=== PATIENT | male | born 1990 | race African-American/Black ===

== ENCOUNTER 2021-03-19 20:31 | Emergency (ER) | payer OTHER, SELFPAY ==
[2021-03-19 20:38] VITALS: BP 154/109; PULSE 100; RESP 18; TEMP 36.4; O2SAT 97; BMI 35.9
--- NOTE | 2021-03-19 20:58 | ED_ITS ---
HPI - General Adult General Chief complaint: Recheck/Abnormal Lab/Rx Stated complaint: [employer] sent Pt over Time Seen by Provider: 03/19/21 20:46 Source: patient Mode of arrival: ambulatory Limitations: no limitations History of Present Illness HPI narrative: . No significant past medical history family history of diabetes in grandparents noticed for last few days increased thirst and urination body aches went to Urgent Care checked the blood sugar was 435. Hence came to the ER no abdominal pain no nausea no vomiting not on any steroids Related Data Previous Rx's Medication Instructions Recorded blood-glucose meter #1 ea 03/19/21 metformin 850 mg tablet 850 mg PO BID #60 tab 03/19/21 Allergies Allergy/AdvReac Type Severity Reaction Status Date / Time No Known Allergies Allergy Verified 03/19/21 20:35 Review of Systems Verdana 4l Review of Systems: Yes all other systems are reviewed and Verdana 4d are negative [facility] Past Medical History Medical History Diabetes type 2, uncontrolled Social History Social History Advance Directives: No Advance Directives Information Provided: No Physical Exam Verdana 4l Vital Signs: Verdana 4d Verdana 4d Vital Signs: Verdana 4d Verdana 4Bd Last Vital Signs Verdana 4d Cell Support Operator New 4d Cell Support Operator New 4d Temp 97.5 F 03/19/21 20:38 Cell Support Operator New 4d Pulse 100 03/19/21 20:38 Cell Support Operator New 4d Resp 18 03/19/21 20:38 BP 154/109 H 03/19/21 20:38 Pulse Ox 97 03/19/21 20:38 BMI result Body Mass Index 35.9 Appearance: Alert. Oriented X3. No acute distress. Well-built Eyes: No pallor or icterus ENT: Pharynx normal. Oral Mucosa moist Neck: Normal inspection. Neck supple. CVS: Normal heart rate and rhythm. Pulses normal. Respiratory: No respiratory distress. Equal air entry bilateral, no wheezing/rales/rhonchi Abdomen: Soft and nontender. Bowel sounds are present, no mass palpable, no CVA tenderness Skin: Skin warm and dry. Normal skin color. Normal skin turgor. Neuro: Oriented X 3. Medical Decision Making MDM Narrative Medical decision making narrative: Patient with new diagnosis of diabetes with blood sugar of 410 on arrival patient received IV fluids and insulin in the ER last blood sugar 311 which are patient home on metformin patient was educated about diabetes in the ER advised to follow with specialist Lab Data Lab results reviewed: Yes I reviewed the patient's lab results. Result diagrams: 03/19/21 20:57 03/19/21 20:57 Labs: Lab Results 03/19/21 03/19/21 03/19/21 Range/Units 20:57 20:57 21:24 WBC 8.9 (4.8-10.8) X10*3/uL RBC 5.73 (4.60-5.80) X10*6/uL Hgb 15.2 (14.0-18.0) g/dl Hct 45.7 (42.0-52.0) % MCV 79.8 L (80.0-98.0) fL MCH 26.5 L (27.0-33.0) pg MCHC 33.3 (31.0-36.0) g/dl RDW 13.4 (11.0-16.0) % Plt Count 345 (160-400) X10*3/uL MPV 9.7 (9.4-12.4) fL Immature Gran % (Auto) 0.2 (0.0-0.4) % Neut % (Auto) 40.4 L (45-73) % Lymph % (Auto) 45.3 H (20-40) % Hemphill % (Auto) 7.7 (2-11) % Eos % (Auto) 5.4 H (0-4) % Baso % (Auto) 1.0 (0-2) % Lymph # (Auto) 4.0 (1.2-4.9) X10*3/uL Hemphill # (Auto) 0.7 (0.1-1.2) X10*3/uL Eos # (Auto) 0.5 H (0.0-0.4) X10*3/uL Baso # (Auto) 0.1 (0.0-0.2) X10*3/uL Abs Immat Gran (auto) 0.02 (0.00-0.03) X10*3/uL Absolute Neuts (auto) 3.6 (2.0-8.3) x10*3/uL Absolute Nucleated RBC 0.000 (0.0-0.012) X10*3/uL Nucleated RBC % (auto) 0.0 (0.0-0.2) /100WBC Sodium 137 (135-145) mmol/L Potassium 4.2 (3.3-5.1) mmol/L Chloride 99 (96-108) mmol/L Carbon Dioxide 28 (22-29) mmol/L Anion Gap 14 (12-20) BUN 12 (9-16) mg/dL Creatinine 1.55 H (0.5-1.4) mg/dL Estim Creat Clear Calc 96.8 Estimated GFR 52 POC Glucose 386 H* (60-115) mg/dL Random Glucose 410 H* (60-115) mg/dL Calcium 9.8 (8.4-10.2) mg/dL Total Bilirubin 0.7 (0.0-1.0) mg/dL AST 15 (5-37) U/L ALT 17 (0-40) U/L Alkaline Phosphatase 109 (39-117) U/L Total Protein 8.1 H (6.5-8.0) g/dL Albumin 4.5 (3.5-5.0) g/dL Acetone, Qual Negative (Negative) 03/19/21 03/19/21 Range/Units 22:03 22:58 WBC (4.8-10.8) X10*3/uL RBC (4.60-5.80) X10*6/uL Hgb (14.0-18.0) g/dl Hct (42.0-52.0) % MCV (80.0-98.0) fL MCH (27.0-33.0) pg MCHC (31.0-36.0) g/dl RDW (11.0-16.0) % Plt Count (160-400) X10*3/uL MPV (9.4-12.4) fL Immature Gran % (Auto) (0.0-0.4) % Neut % (Auto) (45-73) % Lymph % (Auto) (20-40) % Hemphill % (Auto) (2-11) % Eos % (Auto) (0-4) % Baso % (Auto) (0-2) % Lymph # (Auto) (1.2-4.9) X10*3/uL Hemphill # (Auto) (0.1-1.2) X10*3/uL Eos # (Auto) (0.0-0.4) X10*3/uL Baso # (Auto) (0.0-0.2) X10*3/uL Abs Immat Gran (auto) (0.00-0.03) X10*3/uL Absolute Neuts (auto) (2.0-8.3) x10*3/uL Absolute Nucleated RBC (0.0-0.012) X10*3/uL Nucleated RBC % (auto) (0.0-0.2) /100WBC Sodium (135-145) mmol/L Potassium (3.3-5.1) mmol/L Chloride (96-108) mmol/L Carbon Dioxide (22-29) mmol/L Anion Gap (12-20) BUN (9-16) mg/dL Creatinine (0.5-1.4) mg/dL Estim Creat Clear Calc Estimated GFR POC Glucose 333 H 311 H (60-115) mg/dL Random Glucose (60-115) mg/dL Calcium (8.4-10.2) mg/dL Total Bilirubin (0.0-1.0) mg/dL AST (5-37) U/L ALT (0-40) U/L Alkaline Phosphatase (39-117) U/L Total Protein (6.5-8.0) g/dL Albumin (3.5-5.0) g/dL Acetone, Qual (Negative) Discharge Plan Discharge Clinical Impression: New onset type 2 diabetes mellitus Patient Disposition: Home, Self-Care Instructions: Type 2 Diabetes in Adults: New Diagnosis (ED) Additional Instructions: Drink plenty of fluids Check your sugar twice daily Metformin as advised Follow-up with your PCP/package maker Report to the ER blood sugar higher than 400 Prescriptions: New metformin 850 mg tablet 850 mg PO BID Qty: 60 0RF (DME) blood-glucose meter Kit See Rx Instructions .Route Qty: 1 0RF Rx Instructions: As directed
[2021-03-19 21:03] LABS: MANUAL DIFF FLAG NO
[2021-03-19 21:04] LABS: Basophils Absolute Auto 0.1 X10*3/uL (0.0-0.2); Eosinophils Absolute Auto 0.5 X10*3/uL (0.0-0.4); Eosinophils Percent Auto 5.4 % (0-4); Hematocrit 45.7 % (42.0-52.0); Hemoglobin 15.2 g/dl (14.0-18.0); Imm Gran Abs Auto 0.02 X10*3/uL (0.00-0.03); Imm Gran Pct Auto 0.2 % (0.0-0.4); Lymphocytes Percent Auto 45.3 % (20-40); Mean Corpuscular HGB Conc 33.3 g/dl (31.0-36.0); Mean Corpuscular Hemoglobin 26.5 pg (27.0-33.0); Mean Corpuscular Volume 79.8 fL (80.0-98.0); Mean Platelet Volume 9.7 fL (9.4-12.4); Monocytes Absolute Auto 0.7 X10*3/uL (0.1-1.2); Monocytes Percent Auto 7.7 % (2-11); Neutrophils Absolute Auto 3.6 x10*3/uL (2.0-8.3); Neutrophils Percent Auto 40.4 % (45-73); Platelet Count 345 X10*3/uL (160-400); Red Blood Count 5.73 X10*6/uL (4.60-5.80); Red Cell Distribution Width 13.4 % (11.0-16.0); White Blood Count 8.9 X10*3/uL (4.8-10.8)
[2021-03-19 21:10] LABS: Acetone, serum QL Negative (Negative)
[2021-03-19] MEDS: 0.9 % Sodium Chloride 1,000 ML 999 ML IV (21:26)
[2021-03-19] MEDS: Insulin Lispro 100 UNIT/ML 3 ML VIAL 14 UNIT SUBCUT (21:26)
[2021-03-19 21:27] LABS: Glucose, Whole Blood 386 mg/dL (60-115)
[2021-03-19 21:35] LABS: Alanine Aminotransferase 17 U/L (0-40); Albumin Level 4.5 g/dL (3.5-5.0); Alkaline Phosphatase 109 U/L (39-117); Anion Gap 14 (12-20); Aspartate Amino Transferase 15 U/L (5-37); Bilirubin Total 0.7 mg/dL (0.0-1.0); Blood Urea Nitrogen 12 mg/dL (9-16); Calcium 9.8 mg/dL (8.4-10.2); Carbon Dioxide 28 mmol/L (22-29); Chloride 99 mmol/L (96-108); Creatinine Clr Calc Pharmacy 96.8; Estimated Glomerular Filt Rate 52; Glucose Random 410 mg/dL (60-115); Potassium 4.2 mmol/L (3.3-5.1); Sodium 137 mmol/L (135-145); Total Protein 8.1 g/dL (6.5-8.0)
--- NOTE | 2021-03-19 22:06 | PC.NURSE ---
POC 333
[2021-03-19 22:08] LABS: Glucose, Whole Blood 333 mg/dL (60-115)
[2021-03-19 23:03] LABS: Glucose, Whole Blood 311 mg/dL (60-115)
[2021-03-19] MEDS: metFORMIN HCl 1,000 MG TABLET 1000 MG PO (23:15)
== END 2021-03-19 23:28 | disposition home or self-care (01) ==
PROVIDERS: Emergency Provider Internal Medicine
DX: E11.65 Type 2 diabetes mellitus with hyperglycemia (principal)
CPT/HCPCS: 36415; 80053; 82009; 82947; 85025; 96360; 99283; 99284

== ENCOUNTER 2021-04-05 12:33 | Emergency (ER) | payer OTHER, SELFPAY ==
[2021-04-05 12:43] VITALS: BP 152/101; PULSE 93; RESP 18; TEMP 36.9; O2SAT 98; BMI 35.9
[2021-04-05 14:33] LABS: Glucose, Whole Blood 297 mg/dL (60-115)
--- NOTE | 2021-04-05 14:58 | ED_ITS ---
HPI - Animal Bite General Chief Complaint: Animal Bite Stated Complaint: bit by dog Time Seen by Provider: 04/05/21 14:12 Source: patient Mode of arrival: ambulatory History of Present Illness HPI narrative: 30-year-old male with past medical history of newly diagnosed diabetes on Metformin, presenting to the ED complaining of dog bite to bilateral feet [employer]. 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 Dog up-to-date on vaccinations. Patient's tetanus up-to-date. Patient also reports noncompliance with his Metformin x3 days due to forgetfulness, requesting POC. Also reports a acute on chronic rash to posterior scalp. denies fever, chills complaint: animal bite Onset (ago): hour(s) Animal: dog Description of animal: immunizations UTD Related Data Previous Rx's Medication Instructions Recorded blood-glucose meter #1 ea 03/19/21 metformin 850 mg tablet 850 mg PO BID #60 tab 03/19/21 hydrochlorothiazide 25 mg tablet 25 mg PO DAILY #14 tab 04/05/21 triamcinolone acetonide 0.05 % 1 appl TOPICAL BID PRN #110 g 04/05/21 topical ointment Allergies Allergy/AdvReac Type Severity Reaction Status Date / Time No Known Allergies Allergy Verified 04/05/21 12:43 Review of Systems Review of Systems: Constitutional: No Fever, No Chills ENT/Mouth: No Ear Pain, No Nasal Congestion, No sore throat, No Rhinorrhea, No Swallowing Difficulty Cardiovascular: No Chest Pain, No SOB Respiratory: No Cough, No Sputum Gastrointestinal: No Nausea, No Vomiting, No Diarrhea, No Constipation, No Abdominal pain Genitourinary: No Dysuria, No Urinary Frequency, No Urgency, No Flank Pain Musculoskeletal: No joint pain, No Myalgias, No Joint Swelling Skin: No Skin Lesions, + rash Neuro: No Weakness, No Numbness, No Paresthesias Yes all other systems are reviewed and are negative [facility] Past Medical History Attestation statement: The following information was validated with the patient. Medical History Diabetes type 2, uncontrolled Social History Social History Advance Directives: No Advance Directives Information Provided: No Physical Exam ED Vital Signs: Vital Signs - 24 hr 04/05/21 12:43 04/05/21 15:05 04/05/21 16:03 Temperature 98.5 F Pulse Rate 93 78 Respiratory Rate 18 19 Blood Pressure 152/101 H 158/107 H 157/111 H Pulse Oximetry 98 96 04/05/21 16:33 04/05/21 16:40 Temperature Pulse Rate Respiratory Rate Blood Pressure 160/104 H 161/96 H Pulse Oximetry BMI result Body Mass Index 35.9 Const General: cooperative and healthy appearing Orientation/consciousness: patient oriented x3 Limitations: no limitations HENMT Head: Yes normal to inspection and Yes normocephalic Ears: hearing grossly normal bilaterally General nose exam: Normal external nose present Face and sinus: Yes normal facial exam Eyes General: appearance normal, both eyes and all related structures EOM: EOMs intact bilaterally Neck Neck: Yes normal visual inspection Resp Effort & Inspection: normal respiratory effort and no respiratory distress Auscultation: clear to auscultation bilaterally Cardio Rate: regular rate Heart sounds: S1 normal heart sound present and S2 normal heart sound present Peripheral pulses: dorsalis pedis present GI Inspection: Yes normal to inspection Skin Other: + thickened dermatitis/ eczema to posterior scalp. No erythema, no open wounds, no drainage Wounds: no wounds Neuro General: patient oriented x3 Gait exam (Neuro): Normal gait present Extrem Other: bilateral lower extremities/feet without deformity/erythema/ecchymosis, no open wounds, no appreciable bite [place] General: Yes normal to inspection Course Course Course Narrative: -- PATIENT'S BLOOD PRESSURE MILDLY IMPROVED TO 161/96 AFTER 25 MG OF P.O. HYDROCHLOROTHIAZIDE. HAD LENGTHY DISCUSSION WITH PATIENT ABOUT IMPORTANCE OF C OMPLIANCE WITH METFORMIN, CLOSE MONITORING OF GLUCOSE, AND INITIATION OF HYDROCHLOROTHIAZIDE. DISCUSSED IMPORTANCE OF PCP FOLLOW-UP. HE VERBALIZED UNDERSTANDING FEEL SAFE FOR DISCHARGE HOME - PATIENT ALSO YOU TOOK HOME DOSE OF METFORMIN IN THE ED MDM - Animal Bite MDM Narrative Medical decision making narrative: 30-year-old male with past medical history of newly diagnosed diabetes on Metformin, presenting to the ED complaining of dog bite to bilateral feet [employer]. On exam hypertensive, notably hypertensive previous visit as well on 03/19, not currently on antihypertensives, denies headache/CP/SOB. Low concern for hypertensive urgency / emergency. Will give dose of p.o. Hydrochlorothiazide and re-evaluate. No appreciable dog bite/open wounds to either foot. No need for tetanus, rabies or Augmentin at this time. Noncompliance with Metformin > POC 297. Discussed importance of compliance with meds and close monitoring of glucose at home. Has follow-up with PCP next week. Discussed endocrine follow-up, he verbalized understanding Differential Diagnosis Differential diagnosis: Likely bite by animal and dog bite Medical Records Attestation: I reviewed the patient's medical records. Lab Data Attestation: I reviewed the patient's lab results. Labs: Lab Results 04/05/21 Range/Units 14:28 POC Glucose 297 H (60-115) mg/dL Discharge Plan Discharge Clinical Impression: Dog bite, HTN (hypertension), Dermatitis Patient Disposition: Home, Self-Care Instructions: Animal Bite (ED), How to Take a Blood Pressure (ED), Hypertension (ED) Additional Instructions: your blood pressures are elevated today in the emergency department. It was elevated during her last visit as well, hydrochlorothiazide is an antihypertensive medication, take as prescribed. YOU NEED TO FOLLOW-UP WITH HER PRIMARY CARE DOCTOR. YOU NEED TO MONITOR YOUR BLOOD PRESSURES CLOSELY IT IS VERY IMPORTANT YOU TAKE YOUR METFORMIN PRESCRIBED YOU ALSO NEED TO CHECK YOUR GLUCOSE IF YOUR SUGAR IS RUNNING LOW LESS THAN 60 OR HIGH GREATER THAN 350 PLEASE RETURN TO THE EMERGENCY DEPARTMENT. IF HE DEVELOPED HEADACHE, CHEST PAIN, SHORTNESS OF BREATH, LIGHTHEADEDNESS / DIZZINESS PLEASE RETURN TO THE EMERGENCY DEPARTMENT Prescriptions: New hydrochlorothiazide 25 mg tablet 25 mg PO DAILY Qty: 14 0RF triamcinolone acetonide 0.05 % ointment 1 appl topical BID PRN (Reason: rash) Qty: 110 0RF No Action metformin 850 mg tablet 850 mg PO BID Qty: 60 0RF (DME) blood-glucose meter Kit See Rx Instructions .Route Qty: 1 0RF Rx Instructions: As directed Referrals: Arlene Montiel PA [Physician Rn Cvor] - 2 days Onofre Agarawl MD [Physician] - 2 days Lizbeth Bang MD [Physician] - 2 days Physician,Ana J [Primary Care Provider] - 2 days
[2021-04-05 15:05] VITALS: BP 158/107; PULSE 78; RESP 19; O2SAT 96
[2021-04-05] MEDS: hydroCHLOROthiazide 25 MG TABLET PO (15:24)
[2021-04-05 16:03] VITALS: BP 157/111
[2021-04-05 16:33] VITALS: BP 160/104
[2021-04-05 16:40] VITALS: BP 161/96
== END 2021-04-05 17:02 | disposition home or self-care (01) ==
PROVIDERS: Emergency Provider Emergency Medicine
DX: S90.872A Other superficial bite of left foot, initial encounter (principal); S90.871A Other superficial bite of right foot, initial encounter; W54.0XXA Bitten by dog, initial encounter; I10 Essential (primary) hypertension; L30.9 Dermatitis, unspecified; E11.9 Type 2 diabetes mellitus without complications; Y93.89 Activity, other specified; Y92.9 Unspecified place or not applicable; Y99.9 Unspecified external cause status
CPT/HCPCS: 82947; 99283; 99284

== ENCOUNTER 2022-01-26 08:38 | Emergency (ER) | payer OTHER, SELFPAY ==
[2022-01-26 08:51] VITALS: BP 160/109; PULSE 95; RESP 16; TEMP 36.6; O2SAT 97; BMI 35.9
[2022-01-26 09:33] LABS: Glucose, Whole Blood 337 mg/dL (60-115)
[2022-01-26 09:36] LABS: Appearance Urine Clear; Color Urine Yellow; Glucose Urine UA >=1000 mg/dL (Negative); Leukocyte Esterase Urine Negative (Negative); Nitrite Urine Negative (Negative); PH 5.5 (5.0-9.0); UMIC TRIGGER UACC YES; Urine Blood Negative (Negative); Urine Ketones Negative (Negative); Urine Protein Negative (Neg-Trace)
[2022-01-26] MEDS: Lidocaine 4 % Patch ADH..PATCH 1 PATCH TRANSDERMA (09:38)
[2022-01-26] MEDS: Ketorolac Tromethamine 30 MG/ML VIAL IM (09:39)
[2022-01-26 09:41] LABS: Bacteria Urine None Seen (None Seen); Hyaline Casts Urine 0-2 /LPF (0-2); RBC Urine 0-2 /HPF (0-2); Squamous Epithelial Cell Urine 0-2 /HPF (0-2); UACC Culture Trigger YES
--- NOTE | 2022-01-26 09:53 | ED.BACK ---
HPI - Back Pain/Injury General Chief Complaint: Back Pain/Injury Stated Complaint: lower back pain, pain going into legs Time Seen by Provider: 01/26/22 09:03 Source: patient Mode of arrival: ambulatory History of Present Illness HPI Narrative: 31-year-old male with a past medical history of hypertension, presenting to the ED complaining of left-sided low back pain radiating down LLE x 1 week. Also reports urinary frequency, increased thirst, and intermittent blurry vision, denies at present. Denies any injury, trauma, fall, urinary incontinence/retention, fever, chills, hematuria/ dysuria, abdominal pain, headaches, CP/SOB. Has taking Tylenol and ibuprofen without relief MD elicited complaint: back pain Related Data Previous Rx's Medication Instructions Recorded blood-glucose meter #1 ea 03/19/21 metformin 850 mg tablet 850 mg PO BID #60 tabs 03/19/21 hydrochlorothiazide 25 mg tablet 25 mg PO DAILY #14 tabs 04/05/21 triamcinolone acetonide 0.05 % 1 appl topical BID PRN rash #110 04/05/21 topical ointment grams Allergies Allergy/AdvReac Type Severity Reaction Status Date / Time No Known Allergies Allergy Verified 04/05/21 12:43 Review of Systems Review of Systems: Constitutional: No Fever, No Chills, No Fatigue, No Malaise ENT/Mouth: No Ear Pain, No Nasal Congestion, No sore throat, No Rhinorrhea, No Swallowing Difficulty Eyes: No Eye Pain, No Swelling, No Redness, +intermittent Vision Changes Cardiovascular: No Chest Pain, No SOB, No Edema, No Palpitations Respiratory: No Cough, No Sputum, No Dyspnea Gastrointestinal: No Nausea, No Vomiting, No Diarrhea, No Constipation, No Abdominal pain Genitourinary: No Dysuria, + Urinary Frequency, No Hematuria, No Urinary Incontinence/retention, No Urgency, No Flank Pain, No Urinary Flow Changes, No Hesitancy Musculoskeletal: + joint pain, No Myalgias, No Joint Swelling Skin: No Skin Lesions, No rash Neuro: No Weakness, No Numbness, + Paresthesias, No Loss of Consciousness, No Dizziness, No Headache Endocrine: + Polyuria, + Polydipsia, No Temperature Intolerance Yes all other systems are reviewed and are negative Constitutional: Constitutional: Reports as per [facility] Past Medical History Attestation statement: The following information was validated with the patient. Medical History Diabetes type 2, uncontrolled Social History Social History Advance Directives: No Advance Directives Information Provided: No Physical Exam Vital Signs: Vital Signs: Last Vital Signs Temp 98 F 01/26/22 08:51 Pulse 83 01/26/22 10:33 Resp 14 01/26/22 10:33 BP 153/98 H 01/26/22 10:33 Pulse Ox 97 01/26/22 10:33 O2 Del Method 01/26/22 10:33 BMI result Body Mass Index 35.9 Const: General: cooperative, healthy appearing and no acute distress Orientation/consciousness: patient oriented x3 Limitations: no limitations HEENT: Head: Yes normal to inspection and Yes atraumatic Ears: hearing grossly normal bilaterally General nose exam: Normal external nose present Face and sinus: Yes normal facial exam Eyes: General: appearance normal, both eyes and all related structures EOM: EOMs intact bilaterally Neck: Neck: Yes normal visual inspection and Yes no meningeal signs Resp: Effort & Inspection: normal respiratory effort and no respiratory distress Auscultation: clear to auscultation bilaterally Cardio: Rate: regular rate Heart sounds: S1 normal heart sound present and S2 normal heart sound present GI: Inspection: Yes normal to inspection Palpation (GI): Soft to palpation, nontender, no guarding and not rigid : General: Yes no CVA tenderness Back/Spine/Pelvis: Other: No midline thoracic/lumbar spinous tenderness/step-off or deformity. + left-sided buttock tenderness to palpation Back: no CVA tenderness Skin: Rashes: no rashes Wounds: no wounds Neuro: Other: Strength intact throughout. No saddle anesthesia. Sensation intact to light touch. Neurovascular intact distally General: patient oriented x3, gait normal, tone normal, moves all extremities, no meningeal signs and no focal motor deficits Gait exam (Neuro): Normal gait present Motor exam (neuro): 5/5 motor strength present throughout Extrem: General: Yes normal to inspection Course Course Course Narrative: - POC 337 on arrival > will obtain labs and give IVF - no leukocytosis. Hemoglobin A1c 9.3 >> discussed with patient importance of metformin compliance with diagnosis of diabetes with Endocrinology follow-up - UA with wbc's and glucose, negative nitrate/bacteriuria/leuk esterase > will wait on culture to initiate antibiotics -1140-- repeat POC 259 after IVF. Will continue patient on previously prescribed metformin 850mg b.i.d. Results discussed with patient including worrisome signs and symptoms and strict return precautions, and when to return to the emergency department. They verbalized understanding and feel safe for discharge at this time. Medications Administered Discontinued Medications Generic Name Dose Route Start Last Admin Trade Name Freeman PRN Reason Stop Dose Admin Hydrochlorothiazide 25 mg 01/26/22 09:40 01/26/22 09:57 Hydrochlorothiazide 25 Mg Tablet PO 01/26/22 09:41 25 mg ONCE ONE Administration Protocol Sodium Chloride 1,000 mls @ 999 mls/hr 01/26/22 09:45 01/26/22 09:58 Ns IV 01/26/22 10:45 999 mls/hr .Q1H1M CLIFFORD Administration Ketorolac Tromethamine 30 mg 01/26/22 09:27 01/26/22 09:39 Ketorolac Tromethamine 30 Mg/Ml Vial IM 01/26/22 09:28 30 mg ONCE ONE Administration Lidocaine 1 patch 01/26/22 09:27 01/26/22 09:38 Lidocaine 4 % Patch Adh..Patch TRANSDERMA 01/26/22 09:28 1 patch ONCE ONE Administration Protocol Medical Decision Making Medical Decision Making MDM Narrative: 31-year-old male with a past medical history of hypertension, presenting to the ED complaining of left-sided low back pain radiating down LLE x 1 week. Also reports urinary frequency, increased thirst, and intermittent blurry vision, denies at present. On exam HTNsive (denies taking BP meds today), NAD, nontoxic, no midline spinous tenderness or red flag symptoms. Concern for MSK pain /strain/sciatica. Low suspicion for cauda equina, cord compression, or epidural abscess. Upon chart review patient was diagnosed with new onset diabetes in March, states use to take metformin, has been noncompliant. Concern for DKA/hyperglycemia due to noncompliance. Rule out metabolic abnormalities plan: Labs, UA, IVF, pain control Differential Diagnoses: Differential diagnosis ( as above) Lab Attestation: I reviewed the patient's lab results. Non-ED record review: Review of External (Non-ED) Record ( old ED record) External record reviewed:: Prior outpatient labs Chronic conditions affecting care (e.g., diabetes, HTN): Chronic conditions affecting care (e.g., diabetes, HTN) Patient?s care impacted by: Diabetes Discharge Plan Discharge Clinical Impression: Lumbar radiculopathy, Diabetes Patient Disposition: Home, Self-Care Prescriptions: No Action metformin 850 mg tablet 850 mg PO BID Qty: 60 0RF (DME) blood-glucose meter Kit See Rx Instructions .Route Qty: 1 0RF Rx Instructions: As directed hydrochlorothiazide 25 mg tablet 25 mg PO DAILY Qty: 14 0RF triamcinolone acetonide 0.05 % ointment 1 appl topical BID PRN (Reason: rash) Qty: 110 0RF
[2022-01-26] MEDS: hydroCHLOROthiazide 25 MG TABLET PO (09:57)
[2022-01-26] MEDS: 0.9 % Sodium Chloride 1,000 ML 999 ML IV (09:58)
[2022-01-26 10:03] LABS: MANUAL DIFF FLAG NO
[2022-01-26 10:04] LABS: Basophils Absolute Auto 0.1 X10*3/uL (0.0-0.2); Basophils Percent Auto 1.1 % (0-2); Eosinophils Absolute Auto 0.3 X10*3/uL (0.0-0.4); Eosinophils Percent Auto 3.9 % (0-4); Hematocrit 44.8 % (42.0-52.0); Hemoglobin 15.5 g/dl (14.0-18.0); Imm Gran Abs Auto 0.01 X10*3/uL (0.00-0.03); Imm Gran Pct Auto 0.1 % (0.0-0.4); Lymphocytes Absolute Auto 2.7 X10*3/uL (1.2-4.9); Lymphocytes Percent Auto 36.9 % (20-40); Mean Corpuscular HGB Conc 34.6 g/dl (31.0-36.0); Mean Corpuscular Hemoglobin 27.2 pg (27.0-33.0); Mean Corpuscular Volume 78.6 fL (80.0-98.0); Monocytes Absolute Auto 0.6 X10*3/uL (0.1-1.2); Monocytes Percent Auto 8.8 % (2-11); Neutrophils Absolute Auto 3.6 x10*3/uL (2.0-8.3); Neutrophils Percent Auto 49.2 % (45-73); Platelet Count 354 X10*3/uL (160-400); Red Cell Distribution Width 12.5 % (11.0-16.0); White Blood Count 7.3 X10*3/uL (4.8-10.8)
[2022-01-26 10:22] LABS: Alanine Aminotransferase 19 U/L (0-40); Albumin Level 4.4 g/dL (3.5-5.0); Alkaline Phosphatase 111 U/L (39-117); Anion Gap 14 (12-20); Aspartate Amino Transferase 13 U/L (5-37); Bilirubin Direct 0.2 mg/dL (0.0-0.5); Blood Urea Nitrogen 14 mg/dL (9-16); Carbon Dioxide 30 mmol/L (22-29); Chloride 100 mmol/L (96-108); Creatinine Clr Calc Pharmacy 113.5; Estimated Glomerular Filt Rate > 60; Glucose Random 310 mg/dL (60-115); Lipase 27 U/L (8-78); Potassium 4.5 mmol/L (3.3-5.1); Sodium 139 mmol/L (135-145); Total Protein 7.8 g/dL (6.5-8.0)
[2022-01-26 10:33] VITALS: BP 153/98; PULSE 83; RESP 14; O2SAT 97
[2022-01-26 10:38] LABS: Bilirubin Total 0.6 mg/dL (0.0-1.0)
[2022-01-26 11:05] LABS: Estimated Average Glucose 220 mg/dL; Hemoglobin A1c % 9.3 %
[2022-01-26 11:22] LABS: Acetone, serum QL Negative (Negative)
[2022-01-26 11:34] LABS: Glucose, Whole Blood 259 mg/dL (60-115)
[2022-01-26] MEDS: metFORMIN HCl 850 MG TABLET PO (11:54)
== END 2022-01-26 11:58 | disposition home or self-care (01) ==
PROVIDERS: Physician Assistant; Emergency Provider Emergency Medicine Emergency Medical Services
DX: M54.50 Low back pain, unspecified (principal); M54.16 Radiculopathy, lumbar region; E11.9 Type 2 diabetes mellitus without complications; Z79.899 Other long term (current) drug therapy; Z79.84 Long term (current) use of oral hypoglycemic drugs
CPT/HCPCS: 36415; 80048; 80076; 81001; 82009; 82947; 83036; 83690; 83735; 85025; 87086; 96372; 99284; J1885

== ENCOUNTER 2022-03-28 19:58 | Emergency (ER) | payer OTHER, SELFPAY ==
--- NOTE | ~2022-03-28 | XR_ITS ---
EXAMINATION: XR CHEST CLINICAL INFORMATION: Headache. Blurred vision. COMPARISON: None TECHNIQUE: 2 views of the chest were obtained. FINDINGS: No significant abnormality is noted involving the heart, lungs, mediastinum, bony thorax or soft tissues. XR/XR chest 2V IMPRESSION: Unremarkable examination.
[2022-03-28 20:03] VITALS: BP 175/105; PULSE 109; RESP 20; TEMP 37; O2SAT 98; BMI 31.9
--- NOTE | 2022-03-28 20:05 | ECG_ITS ---
Test Reason : HEADACHE Blood Pressure : / mmHG Vent. Rate : 094 BPM Atrial Rate : 094 BPM P-R Int : 182 ms QRS Dur : 096 ms QT Int : 340 ms P-R-T Axes : 045 089 -13 degrees QTc Int : 425 ms Normal sinus rhythm ST & T wave abnormality, consider inferior ischemia Abnormal ECG No previous ECGs available Referred By: Almaz Parmar Electronically Signed By:MING LAN MD
--- NOTE | 2022-03-28 20:06 | ED.RECABL ---
HPI - Recheck/Abnormal Lab/Rx General Chief Complaint: General Medical <CINDY Mae - Last Filed: 03/28/22 20:18> Stated Complaint: High Blood Sugar 587, PCP informed pt to come in <CINDY Mae - Last Filed: 03/28/22 20:18> Time Seen by Provider: 03/28/22 22:32 <CINDY Mae - Last Filed: 03/28/22 20:18> Source: patient <Brenda Durham MD - Last Filed: 03/29/22 01:23> Mode of arrival: ambulatory <Brenda Durham MD - Last Filed: 03/29/22 01:23> Limitations: no limitations <Brenda Durham MD - Last Filed: 03/29/22 01:23> History of Present Illness HPI narrative: Patient comes to the emergency room complaining of high blood sugar. Patient states that today he went to see his primary care physician for medication refill for diabetes. Patient had routine lab work, today in the evening he received a phone call from his primary care physician's office, patient's blood glucose was high, 587. Patient states that he has noticed that throughout the day he has had blurred vision. <Brenda Durham MD - Last Filed: 03/29/22 01:23> Related Data Home Medications: Previous Rx's Medication Instructions Recorded blood-glucose meter #1 ea 03/19/21 metformin 850 mg tablet 850 mg PO BID #60 tabs 03/19/21 hydrochlorothiazide 25 mg tablet 25 mg PO DAILY #14 tabs 04/05/21 triamcinolone acetonide 0.05 % 1 appl topical BID PRN rash #110 04/05/21 topical ointment grams acetaminophen 500 mg tablet 500 mg PO Q6H PRN fever or pain 01/26/22 (Tylenol Extra Strength) #14 tabs cyclobenzaprine 5 mg tablet 5 mg PO Q8H PRN pain (scale score 01/26/22 7-10) 5 days #14 tabs lidocaine 5 % topical patch 1 patch topical DAILY PRN pain #30 01/26/22 (Lidoderm) ea metformin 850 mg tablet 850 mg PO BID 30 days #60 tabs 01/26/22 naproxen 500 mg tablet 500 mg PO BID PRN pain 10 days #20 01/26/22 tabs <CINDY Mae - Last Filed: 03/28/22 20:18> Allergies/Adverse Reactions: Allergies Allergy/AdvReac Type Severity Reaction Status Date / Time No Known Allergies Allergy Verified 03/28/22 20:09 <CINDY Mea - Last Filed: 03/28/22 20:18> Review of Systems Review of Systems: Constitutional : No Weight loss, No Fever, No Chills, No Night Sweats, No Fatigue, No Malaise ENT/Mouth : No Hearing loss, No Ear Pain, No Nasal Congestion, No Sinus Pain, No Hoarseness, No sore throat, No Rhinorrhea, No Swallowing Difficulty Eyes: No Eye Pain, No Swelling, No Redness, No Foreign Body, No Discharge, complaining of mild blurred vision Cardiovascular : No Chest Pain, No SOB, No Dyspnea on Exertion, No Orthopnea, No Edema, No Palpitations Respiratory : No Cough, No Sputum, No Wheezing, No Smoke Exposure, No Dyspnea Gastrointestinal : No Nausea, No Vomiting, No Diarrhea, No Constipation, No abdominal Pain, No Hematochezia, No Melena Genitourinary : no irregular bleeding, No Dysuria, No Urinary Frequency, No Hematuria, No Urinary Incontinence, No Urgency, No Flank Pain, No Urinary Flow Changes, No Hesitancy Musculoskeletal : No joint pain, No Myalgias, No Joint Swelling Skin : No Skin Lesions, No rash Neuro : No Weakness, No Numbness, No Paresthesias, No Loss of Consciousness, No Dizziness, No Headache Psych : No Anxiety/Panic, No Depression, No SI/HI/AH/VH, No Social Issues, Heme/Lymph: No Bruising, No Bleeding,No Lymphadenopathy Endocrine : No Polyuria, No Polydipsia, No Temperature Intolerance <Brenda Durham MD - Last Filed: 03/29/22 01:23> [facility] Past Medical History Medical History: Medical History Diabetes type 2, uncontrolled <CINDY Mae - Last Filed: 03/28/22 20:18> Social History Social History: Social History Advance Directives: No Advance Directives Information Provided: No <CINDY Mae - Last Filed: 03/28/22 20:18> Physical Exam Vital Signs: Vital Signs: Last Vital Signs Temp 98.6 F 03/28/22 20:03 Pulse 109 H 03/28/22 20:03 Resp 20 03/28/22 20:03 BP 175/105 H 03/28/22 20:03 Pulse Ox 98 03/28/22 20:03 O2 Del Method 03/28/22 20:03 BMI result Body Mass Index 31.9 <CINDY Mae - Last Filed: 03/28/22 20:18> Vital Signs: Last Vital Signs Temp 98.6 F 03/28/22 20:03 Pulse 109 H 03/28/22 20:03 Resp 20 03/28/22 20:03 BP 175/105 H 03/28/22 20:03 Pulse Ox 98 03/28/22 20:03 O2 Del Method 03/28/22 20:03 BMI result Body Mass Index 31.9 <Brenda Durham MD - Last Filed: 03/29/22 01:23> Const: Other: Appearance: Alert. Oriented X3. No acute distress. Sinus but easily arousable Eyes: Pupils equal, round and reactive to light. ENT: Pharynx normal. Neck: Normal inspection. Neck supple. No lymph nodes noted. No crepitus CVS: Normal heart rate and rhythm. Pulses normal. Normal S1 and S2 Respiratory: No respiratory distress. Breath sounds normal. No Wheezing. No rales Abdomen: Soft and nontender. No rigidity. No distention. Skin: Skin warm and dry. Normal skin color. Normal skin turgor. Extremities: No lower extremity edema. No Lacerations. No Rash Neuro: Oriented X 3. No motor deficit. No sensory deficit. Moving all extremities. No slurred speech. CN 2 through 12 grossly intact Psych: calm, cooperative, normal affect <Brenda Durham MD - Last Filed: 03/29/22 01:23> Course Course Course Narrative: RME-20:10PM 31yo uncontrolled diabetes was diagnosed 1 year ago although has not been able to follow-up with primary care provider due to multiple changes in PCP provider's who is presenting to the ER after he was called by his primary care provider today for abnormal labs elevated glucose at 587, sodium 132, K+ 5.0, cr 1.56, a1c 13.6. He reports associated headaches, blurry vision, polyuria/polydipsia over the past few days worse today. Plan: Will obtain labs including POC, acetone level, EKG, chest x-ray, COVID/RSV/flu swab. DUE TO PATIENT'S BLOOD GLUCOSE LEVEL HERE IN TRIAGE REPORTING HIGH patient sent directly into the ER. 2 L of fluid or at this time. <CINDY Mae - Last Filed: 03/28/22 20:18> Medications Administered Discontinued Medications Generic Name Dose Route Start Last Admin Trade Name Freq PRN Reason Stop Dose Admin Sodium Chloride 1,000 mls @ 999 mls/hr 03/28/22 20:30 03/28/22 21:48 Ns IVCONT 03/28/22 21:30 Infused .Q1H1M [facility] Infusion Sodium Chloride 1,000 mls @ 999 mls/hr 03/28/22 20:30 03/28/22 21:48 Ns IVCONT 03/28/22 21:30 Infused .Q1H1M [facility] Infusion Insulin Human Regular 10 unit 03/28/22 22:54 03/28/22 23:04 Insulin Regular, Human 100 Unit/Ml 3 Ml Vial IVPUSH 03/28/22 22:55 10 unit ONCE ONE Administration <CINDY Mae - Last Filed: 03/28/22 20:18> Medications Administered Discontinued Medications Generic Name Dose Route Start Last Admin Trade Name Freq PRN Reason Stop Dose Admin Sodium Chloride 1,000 mls @ 999 mls/hr 03/28/22 20:30 03/28/22 21:48 Ns IVCONT 03/28/22 21:30 Infused .Q1H1M [facility] Infusion Sodium Chloride 1,000 mls @ 999 mls/hr 03/28/22 20:30 03/28/22 21:48 Ns IVCONT 03/28/22 21:30 Infused .Q1H1M [facility] Infusion Insulin Human Regular 10 unit 03/28/22 22:54 03/28/22 23:04 Insulin Regular, Human 100 Unit/Ml 3 Ml Vial IVPUSH 03/28/22 22:55 10 unit ONCE ONE Administration <Brenda Durham MD - Last Filed: 03/29/22 01:23> Medical Decision Making Medical Decision Making MDM Narrative: -patient's blood glucose improved to 287 after 2 L of normal saline and 10 units of insulin. Patient's creatinine on arrival 1.58, as mentioned above, patient received 2 L of normal saline. -patient takes metformin twice a day. I discussed with the patient that we can start a 2nd p.o. medication for diabetic control. Patient states that he prefers to wait to see his primary care physician <Brenda Durham MD - Last Filed: 03/29/22 01:23> Lab Data Result Diagrams: 03/28/22 20:37 03/28/22 20:37 <CINDY Mae - Last Filed: 03/28/22 20:18> Labs: Lab Results 03/28/22 03/28/22 03/28/22 Range/Units 20:14 20:37 20:37 WBC 7.2 (4.8-10.8) X10*3/uL RBC 5.51 (4.60-5.80) X10*6/uL Hgb 14.7 (14.0-18.0) g/dl Hct 43.2 (42.0-52.0) % MCV 78.4 L (80.0-98.0) fL MCH 26.7 L (27.0-33.0) pg MCHC 34.0 (31.0-36.0) g/dl RDW 13.2 (11.0-16.0) % Plt Count 331 (160-400) X10*3/uL MPV 10.3 (9.4-12.4) fL Immature Gran % (Auto) 0.3 (0.0-0.4) % Neut % (Auto) 47.4 (45-73) % Lymph % (Auto) 39.3 (20-40) % [place] % (Auto) 9.5 (2-11) % Eos % (Auto) 2.5 (0-4) % Baso % (Auto) 1.0 (0-2) % Lymph # (Auto) 2.8 (1.2-4.9) X10*3/uL [place] # (Auto) 0.7 (0.1-1.2) X10*3/uL Eos # (Auto) 0.2 (0.0-0.4) X10*3/uL Baso # (Auto) 0.1 (0.0-0.2) X10*3/uL Abs Immat Gran (auto) 0.02 (0.00-0.03) X10*3/uL Absolute Neuts (auto) 3.4 (2.0-8.3) x10*3/uL Absolute Nucleated RBC 0.000 (0.0-0.012) X10*3/uL Nucleated RBC % (auto) 0.0 (0.0-0.2) /100WBC PT 11.5 (10.0-13.1) SEC INR 1.0 (0.9-1.1) Sodium (135-145) mmol/L Potassium (3.3-5.1) mmol/L Chloride (96-108) mmol/L Carbon Dioxide (22-29) mmol/L Anion Gap (12-20) BUN (9-16) mg/dL Creatinine (0.5-1.4) mg/dL Estim Creat Clear Calc Estimated GFR POC Glucose > 600 H* (60-115) mg/dL Random Glucose (60-115) mg/dL Calcium (8.4-10.2) mg/dL Magnesium (1.6-2.6) mg/dL Total Bilirubin (0.0-1.0) mg/dL AST (5-37) U/L ALT (0-40) U/L Alkaline Phosphatase (39-117) U/L Troponin I High Sens (<3.5-35.0) ng/L Total Protein (6.5-8.0) g/dL Albumin (3.5-5.0) g/dL Acetone, Qual (Negative) Influenza Type A (PCR) (Negative) Influenza Type B (PCR) (Negative) RSV RNA Qual (PCR) (Negative) SARS-CoV-2 RNA (RT-PCR) (Negative) 03/28/22 03/28/22 03/28/22 Range/Units 20:37 20:37 20:37 WBC (4.8-10.8) X10*3/uL RBC (4.60-5.80) X10*6/uL Hgb (14.0-18.0) g/dl Hct (42.0-52.0) % MCV (80.0-98.0) fL MCH (27.0-33.0) pg MCHC (31.0-36.0) g/dl RDW (11.0-16.0) % Plt Count (160-400) X10*3/uL MPV (9.4-12.4) fL Immature Gran % (Auto) (0.0-0.4) % Neut % (Auto) (45-73) % Lymph % (Auto) (20-40) % [place] % (Auto) (2-11) % Eos % (Auto) (0-4) % Baso % (Auto) (0-2) % Lymph # (Auto) (1.2-4.9) X10*3/uL [place] # (Auto) (0.1-1.2) X10*3/uL Eos # (Auto) (0.0-0.4) X10*3/uL Baso # (Auto) (0.0-0.2) X10*3/uL Abs Immat Gran (auto) (0.00-0.03) X10*3/uL Absolute Neuts (auto) (2.0-8.3) x10*3/uL Absolute Nucleated RBC (0.0-0.012) X10*3/uL Nucleated RBC % (auto) (0.0-0.2) /100WBC PT (10.0-13.1) SEC INR (0.9-1.1) Sodium 132 L (135-145) mmol/L Potassium 4.5 (3.3-5.1) mmol/L Chloride 96 (96-108) mmol/L Carbon Dioxide 26 (22-29) mmol/L Anion Gap 15 (12-20) BUN 15 (9-16) mg/dL Creatinine 1.58 H (0.5-1.4) mg/dL Estim Creat Clear Calc 88.8 Estimated GFR 51 POC Glucose (60-115) mg/dL Random Glucose 688 H* (60-115) mg/dL Calcium 9.1 D (8.4-10.2) mg/dL Magnesium 1.9 (1.6-2.6) mg/dL Total Bilirubin 0.9 (0.0-1.0) mg/dL AST 13 (5-37) U/L ALT 13 (0-40) U/L Alkaline Phosphatase 120 H (39-117) U/L Troponin I High Sens 4.7 (<3.5-35.0) ng/L Total Protein 6.9 (6.5-8.0) g/dL Albumin 3.9 (3.5-5.0) g/dL Acetone, Qual Negative (Negative) Influenza Type A (PCR) (Negative) Influenza Type B (PCR) (Negative) RSV RNA Qual (PCR) (Negative) SARS-CoV-2 RNA (RT-PCR) (Negative) 03/28/22 03/28/22 03/28/22 Range/Units 20:38 22:50 23:37 WBC (4.8-10.8) X10*3/uL RBC (4.60-5.80) X10*6/uL Hgb (14.0-18.0) g/dl Hct (42.0-52.0) % MCV (80.0-98.0) fL MCH (27.0-33.0) pg MCHC (31.0-36.0) g/dl RDW (11.0-16.0) % Plt Count (160-400) X10*3/uL MPV (9.4-12.4) fL Immature Gran % (Auto) (0.0-0.4) % Neut % (Auto) (45-73) % Lymph % (Auto) (20-40) % [place] % (Auto) (2-11) % Eos % (Auto) (0-4) % Baso % (Auto) (0-2) % Lymph # (Auto) (1.2-4.9) X10*3/uL [place] # (Auto) (0.1-1.2) X10*3/uL Eos # (Auto) (0.0-0.4) X10*3/uL Baso # (Auto) (0.0-0.2) X10*3/uL Abs Immat Gran (auto) (0.00-0.03) X10*3/uL Absolute Neuts (auto) (2.0-8.3) x10*3/uL Absolute Nucleated RBC (0.0-0.012) X10*3/uL Nucleated RBC % (auto) (0.0-0.2) /100WBC PT (10.0-13.1) SEC INR (0.9-1.1) Sodium (135-145) mmol/L Potassium (3.3-5.1) mmol/L Chloride (96-108) mmol/L Carbon Dioxide (22-29) mmol/L Anion Gap (12-20) BUN (9-16) mg/dL Creatinine (0.5-1.4) mg/dL Estim Creat Clear Calc Estimated GFR POC Glucose 465 H* 269 H (60-115) mg/dL Random Glucose (60-115) mg/dL Calcium (8.4-10.2) mg/dL Magnesium (1.6-2.6) mg/dL Total Bilirubin (0.0-1.0) mg/dL AST (5-37) U/L ALT (0-40) U/L Alkaline Phosphatase (39-117) U/L Troponin I High Sens (<3.5-35.0) ng/L Total Protein (6.5-8.0) g/dL Albumin (3.5-5.0) g/dL Acetone, Qual (Negative) Influenza Type A (PCR) NEGATIVE (Negative) Influenza Type B (PCR) NEGATIVE (Negative) RSV RNA Qual (PCR) NEGATIVE (Negative) SARS-CoV-2 RNA (RT-PCR) NEGATIVE (Negative) 03/29/22 Range/Units 00:38 WBC (4.8-10.8) X10*3/uL RBC (4.60-5.80) X10*6/uL Hgb (14.0-18.0) g/dl Hct (42.0-52.0) % MCV (80.0-98.0) fL MCH (27.0-33.0) pg MCHC (31.0-36.0) g/dl RDW (11.0-16.0) % Plt Count (160-400) X10*3/uL MPV (9.4-12.4) fL Immature Gran % (Auto) (0.0-0.4) % Neut % (Auto) (45-73) % Lymph % (Auto) (20-40) % [place] % (Auto) (2-11) % Eos % (Auto) (0-4) % Baso % (Auto) (0-2) % Lymph # (Auto) (1.2-4.9) X10*3/uL [place] # (Auto) (0.1-1.2) X10*3/uL Eos # (Auto) (0.0-0.4) X10*3/uL Baso # (Auto) (0.0-0.2) X10*3/uL Abs Immat Gran (auto) (0.00-0.03) X10*3/uL Absolute Neuts (auto) (2.0-8.3) x10*3/uL Absolute Nucleated RBC (0.0-0.012) X10*3/uL Nucleated RBC % (auto) (0.0-0.2) /100WBC PT (10.0-13.1) SEC INR (0.9-1.1) Sodium (135-145) mmol/L Potassium (3.3-5.1) mmol/L Chloride (96-108) mmol/L Carbon Dioxide (22-29) mmol/L Anion Gap (12-20) BUN (9-16) mg/dL Creatinine (0.5-1.4) mg/dL Estim Creat Clear Calc Estimated GFR POC Glucose 287 H (60-115) mg/dL Random Glucose (60-115) mg/dL Calcium (8.4-10.2) mg/dL Magnesium (1.6-2.6) mg/dL Total Bilirubin (0.0-1.0) mg/dL AST (5-37) U/L ALT (0-40) U/L Alkaline Phosphatase (39-117) U/L Troponin I High Sens (<3.5-35.0) ng/L Total Protein (6.5-8.0) g/dL Albumin (3.5-5.0) g/dL Acetone, Qual (Negative) Influenza Type A (PCR) (Negative) Influenza Type B (PCR) (Negative) RSV RNA Qual (PCR) (Negative) SARS-CoV-2 RNA (RT-PCR) (Negative) <CINDY Mae - Last Filed: 03/28/22 20:18> Lab Results 03/28/22 03/28/22 03/28/22 Range/Units 20:14 20:37 20:37 WBC 7.2 (4.8-10.8) X10*3/uL RBC 5.51 (4.60-5.80) X10*6/uL Hgb 14.7 (14.0-18.0) g/dl Hct 43.2 (42.0-52.0) % MCV 78.4 L (80.0-98.0) fL MCH 26.7 L (27.0-33.0) pg MCHC 34.0 (31.0-36.0) g/dl RDW 13.2 (11.0-16.0) % Plt Count 331 (160-400) X10*3/uL MPV 10.3 (9.4-12.4) fL Immature Gran % (Auto) 0.3 (0.0-0.4) % Neut % (Auto) 47.4 (45-73) % Lymph % (Auto) 39.3 (20-40) % [place] % (Auto) 9.5 (2-11) % Eos % (Auto) 2.5 (0-4) % Baso % (Auto) 1.0 (0-2) % Lymph # (Auto) 2.8 (1.2-4.9) X10*3/uL [place] # (Auto) 0.7 (0.1-1.2) X10*3/uL Eos # (Auto) 0.2 (0.0-0.4) X10*3/uL Baso # (Auto) 0.1 (0.0-0.2) X10*3/uL Abs Immat Gran (auto) 0.02 (0.00-0.03) X10*3/uL Absolute Neuts (auto) 3.4 (2.0-8.3) x10*3/uL Absolute Nucleated RBC 0.000 (0.0-0.012) X10*3/uL Nucleated RBC % (auto) 0.0 (0.0-0.2) /100WBC PT 11.5 (10.0-13.1) SEC INR 1.0 (0.9-1.1) Sodium (135-145) mmol/L Potassium (3.3-5.1) mmol/L Chloride (96-108) mmol/L Carbon Dioxide (22-29) mmol/L Anion Gap (12-20) BUN (9-16) mg/dL Creatinine (0.5-1.4) mg/dL Estim Creat Clear Calc Estimated GFR POC Glucose > 600 H* (60-115) mg/dL Random Glucose (60-115) mg/dL Calcium (8.4-10.2) mg/dL Magnesium (1.6-2.6) mg/dL Total Bilirubin (0.0-1.0) mg/dL AST (5-37) U/L ALT (0-40) U/L Alkaline Phosphatase (39-117) U/L Troponin I High Sens (<3.5-35.0) ng/L Total Protein (6.5-8.0) g/dL Albumin (3.5-5.0) g/dL Acetone, Qual (Negative) Influenza Type A (PCR) (Negative) Influenza Type B (PCR) (Negative) RSV RNA Qual (PCR) (Negative) SARS-CoV-2 RNA (RT-PCR) (Negative) 03/28/22 03/28/22 03/28/22 Range/Units 20:37 20:37 20:37 WBC (4.8-10.8) X10*3/uL RBC (4.60-5.80) X10*6/uL Hgb (14.0-18.0) g/dl Hct (42.0-52.0) % MCV (80.0-98.0) fL MCH (27.0-33.0) pg MCHC (31.0-36.0) g/dl RDW (11.0-16.0) % Plt Count (160-400) X10*3/uL MPV (9.4-12.4) fL Immature Gran % (Auto) (0.0-0.4) % Neut % (Auto) (45-73) % Lymph % (Auto) (20-40) % [place] % (Auto) (2-11) % Eos % (Auto) (0-4) % Baso % (Auto) (0-2) % Lymph # (Auto) (1.2-4.9) X10*3/uL [place] # (Auto) (0.1-1.2) X10*3/uL Eos # (Auto) (0.0-0.4) X10*3/uL Baso # (Auto) (0.0-0.2) X10*3/uL Abs Immat Gran (auto) (0.00-0.03) X10*3/uL Absolute Neuts (auto) (2.0-8.3) x10*3/uL Absolute Nucleated RBC (0.0-0.012) X10*3/uL Nucleated RBC % (auto) (0.0-0.2) /100WBC PT (10.0-13.1) SEC INR (0.9-1.1) Sodium 132 L (135-145) mmol/L Potassium 4.5 (3.3-5.1) mmol/L Chloride 96 (96-108) mmol/L Carbon Dioxide 26 (22-29) mmol/L Anion Gap 15 (12-20) BUN 15 (9-16) mg/dL Creatinine 1.58 H (0.5-1.4) mg/dL Estim Creat Clear Calc 88.8 Estimated GFR 51 POC Glucose (60-115) mg/dL Random Glucose 688 H* (60-115) mg/dL Calcium 9.1 D (8.4-10.2) mg/dL Magnesium 1.9 (1.6-2.6) mg/dL Total Bilirubin 0.9 (0.0-1.0) mg/dL AST 13 (5-37) U/L ALT 13 (0-40) U/L Alkaline Phosphatase 120 H (39-117) U/L Troponin I High Sens 4.7 (<3.5-35.0) ng/L Total Protein 6.9 (6.5-8.0) g/dL Albumin 3.9 (3.5-5.0) g/dL Acetone, Qual Negative (Negative) Influenza Type A (PCR) (Negative) Influenza Type B (PCR) (Negative) RSV RNA Qual (PCR) (Negative) SARS-CoV-2 RNA (RT-PCR) (Negative) 03/28/22 03/28/22 03/28/22 Range/Units 20:38 22:50 23:37 WBC (4.8-10.8) X10*3/uL RBC (4.60-5.80) X10*6/uL Hgb (14.0-18.0) g/dl Hct (42.0-52.0) % MCV (80.0-98.0) fL MCH (27.0-33.0) pg MCHC (31.0-36.0) g/dl RDW (11.0-16.0) % Plt Count (160-400) X10*3/uL MPV (9.4-12.4) fL Immature Gran % (Auto) (0.0-0.4) % Neut % (Auto) (45-73) % Lymph % (Auto) (20-40) % [place] % (Auto) (2-11) % Eos % (Auto) (0-4) % Baso % (Auto) (0-2) % Lymph # (Auto) (1.2-4.9) X10*3/uL [place] # (Auto) (0.1-1.2) X10*3/uL Eos # (Auto) (0.0-0.4) X10*3/uL Baso # (Auto) (0.0-0.2) X10*3/uL Abs Immat Gran (auto) (0.00-0.03) X10*3/uL Absolute Neuts (auto) (2.0-8.3) x10*3/uL Absolute Nucleated RBC (0.0-0.012) X10*3/uL Nucleated RBC % (auto) (0.0-0.2) /100WBC PT (10.0-13.1) SEC INR (0.9-1.1) Sodium (135-145) mmol/L Potassium (3.3-5.1) mmol/L Chloride (96-108) mmol/L Carbon Dioxide (22-29) mmol/L Anion Gap (12-20) BUN (9-16) mg/dL Creatinine (0.5-1.4) mg/dL Estim Creat Clear Calc Estimated GFR POC Glucose 465 H* 269 H (60-115) mg/dL Random Glucose (60-115) mg/dL Calcium (8.4-10.2) mg/dL Magnesium (1.6-2.6) mg/dL Total Bilirubin (0.0-1.0) mg/dL AST (5-37) U/L ALT (0-40) U/L Alkaline Phosphatase (39-117) U/L Troponin I High Sens (<3.5-35.0) ng/L Total Protein (6.5-8.0) g/dL Albumin (3.5-5.0) g/dL Acetone, Qual (Negative) Influenza Type A (PCR) NEGATIVE (Negative) Influenza Type B (PCR) NEGATIVE (Negative) RSV RNA Qual (PCR) NEGATIVE (Negative) SARS-CoV-2 RNA (RT-PCR) NEGATIVE (Negative) 03/29/22 Range/Units 00:38 WBC (4.8-10.8) X10*3/uL RBC (4.60-5.80) X10*6/uL Hgb (14.0-18.0) g/dl Hct (42.0-52.0) % MCV (80.0-98.0) fL MCH (27.0-33.0) pg MCHC (31.0-36.0) g/dl RDW (11.0-16.0) % Plt Count (160-400) X10*3/uL MPV (9.4-12.4) fL Immature Gran % (Auto) (0.0-0.4) % Neut % (Auto) (45-73) % Lymph % (Auto) (20-40) % [place] % (Auto) (2-11) % Eos % (Auto) (0-4) % Baso % (Auto) (0-2) % Lymph # (Auto) (1.2-4.9) X10*3/uL [place] # (Auto) (0.1-1.2) X10*3/uL Eos # (Auto) (0.0-0.4) X10*3/uL Baso # (Auto) (0.0-0.2) X10*3/uL Abs Immat Gran (auto) (0.00-0.03) X10*3/uL Absolute Neuts (auto) (2.0-8.3) x10*3/uL Absolute Nucleated RBC (0.0-0.012) X10*3/uL Nucleated RBC % (auto) (0.0-0.2) /100WBC PT (10.0-13.1) SEC INR (0.9-1.1) Sodium (135-145) mmol/L Potassium (3.3-5.1) mmol/L Chloride (96-108) mmol/L Carbon Dioxide (22-29) mmol/L Anion Gap (12-20) BUN (9-16) mg/dL Creatinine (0.5-1.4) mg/dL Estim Creat Clear Calc Estimated GFR POC Glucose 287 H (60-115) mg/dL Random Glucose (60-115) mg/dL Calcium (8.4-10.2) mg/dL Magnesium (1.6-2.6) mg/dL Total Bilirubin (0.0-1.0) mg/dL AST (5-37) U/L ALT (0-40) U/L Alkaline Phosphatase (39-117) U/L Troponin I High Sens (<3.5-35.0) ng/L Total Protein (6.5-8.0) g/dL Albumin (3.5-5.0) g/dL Acetone, Qual (Negative) Influenza Type A (PCR) (Negative) Influenza Type B (PCR) (Negative) RSV RNA Qual (PCR) (Negative) SARS-CoV-2 RNA (RT-PCR) (Negative) <Brenda Durham MD - Last Filed: 03/29/22 01:23> Discharge Plan Discharge Clinical Impression: Diabetes type 2, uncontrolled, Acute hyperglycemia <CINDY Mae - Last Filed: 03/28/22 20:18> Patient Disposition: Home, Self-Care <CINDY Mae - Last Filed: 03/28/22 20:18> Instructions: Diabetic Hyperglycemia (ED), Diabetes and Exercise (ED) <CINDY Mae - Last Filed: 03/28/22 20:18> Additional Instructions: Please follow-up with your primary care physician tomorrow. If you have any worsening or new symptoms, please return to the emergency room or call 911 <CINDY Mae - Last Filed: 03/28/22 20:18> Prescriptions: No Action metformin 850 mg tablet 850 mg PO BID Qty: 60 0RF (DME) blood-glucose meter Kit See Rx Instructions .Route Qty: 1 0RF Rx Instructions: As directed hydrochlorothiazide 25 mg tablet 25 mg PO DAILY Qty: 14 0RF triamcinolone acetonide 0.05 % ointment 1 appl topical BID PRN (Reason: rash) Qty: 110 0RF metformin 850 mg tablet 850 mg PO BID 30 Days Qty: 60 0RF acetaminophen [Tylenol Extra Strength] 500 mg tablet 500 mg PO Q6H PRN (Reason: fever or pain) Qty: 14 0RF lidocaine [Lidoderm] 5 % adhesive patch,medicated 1 patch topical DAILY MDD remove after 12 hours PRN (Reason: pain) Qty: 30 0RF Rx Instructions: leave on most painful area for up to 12 hrs naproxen 500 mg tablet 500 mg PO BID PRN (Reason: pain) 10 Days Qty: 20 0RF cyclobenzaprine 5 mg tablet 5 mg PO Q8H PRN (Reason: pain (scale score 7-10)) 5 Days Qty: 14 0RF <CINDY Mae - Last Filed: 03/28/22 20:18>
[2022-03-28 20:18] LABS: Glucose, Whole Blood > 600 mg/dL (60-115)
[2022-03-28] MEDS: 0.9 % Sodium Chloride 1,000 ML 999 ML IVCONT ×2 (20:40)
[2022-03-28 20:49] LABS: Basophils Absolute Auto 0.1 X10*3/uL (0.0-0.2); Eosinophils Absolute Auto 0.2 X10*3/uL (0.0-0.4); Eosinophils Percent Auto 2.5 % (0-4); Hematocrit 43.2 % (42.0-52.0); Hemoglobin 14.7 g/dl (14.0-18.0); Imm Gran Abs Auto 0.02 X10*3/uL (0.00-0.03); Imm Gran Pct Auto 0.3 % (0.0-0.4); Lymphocytes Absolute Auto 2.8 X10*3/uL (1.2-4.9); Lymphocytes Percent Auto 39.3 % (20-40); MANUAL DIFF FLAG NO; Mean Corpuscular Hemoglobin 26.7 pg (27.0-33.0); Mean Corpuscular Volume 78.4 fL (80.0-98.0); Mean Platelet Volume 10.3 fL (9.4-12.4); Monocytes Absolute Auto 0.7 X10*3/uL (0.1-1.2); Monocytes Percent Auto 9.5 % (2-11); Neutrophils Absolute Auto 3.4 x10*3/uL (2.0-8.3); Neutrophils Percent Auto 47.4 % (45-73); Platelet Count 331 X10*3/uL (160-400); Red Blood Count 5.51 X10*6/uL (4.60-5.80); Red Cell Distribution Width 13.2 % (11.0-16.0); White Blood Count 7.2 X10*3/uL (4.8-10.8)
[2022-03-28 20:56] LABS: Prothrombin Time 11.5 SEC (10.0-13.1)
[2022-03-28 21:02] LABS: Acetone, serum QL Negative (Negative)
[2022-03-28 21:09] LABS: Alanine Aminotransferase 13 U/L (0-40); Albumin Level 3.9 g/dL (3.5-5.0); Alkaline Phosphatase 120 U/L (39-117); Anion Gap 15 (12-20); Aspartate Amino Transferase 13 U/L (5-37); Bilirubin Total 0.9 mg/dL (0.0-1.0); Blood Urea Nitrogen 15 mg/dL (9-16); Calcium 9.1 mg/dL (8.4-10.2); Carbon Dioxide 26 mmol/L (22-29); Chloride 96 mmol/L (96-108); Creatinine Clr Calc Pharmacy 88.8; Estimated Glomerular Filt Rate 51; Glucose Random 688 mg/dL (60-115); Magnesium 1.9 mg/dL (1.6-2.6); Potassium 4.5 mmol/L (3.3-5.1); Sodium 132 mmol/L (135-145); Total Protein 6.9 g/dL (6.5-8.0)
[2022-03-28 21:15] LABS: Troponin-I High Sensitivity 4.7 ng/L (<3.5-35.0)
[2022-03-28 21:27] LABS: Influenza A PCR NEGATIVE (Negative); Influenza B PCR NEGATIVE (Negative); Resp Syncy Virus RNA Qual PCR NEGATIVE (Negative); SARS COV2 PCR INHOUSE NEGATIVE (Negative)
[2022-03-28 22:54] LABS: Glucose, Whole Blood 465 mg/dL (60-115)
[2022-03-28] MEDS: Insulin Regular, Human 100 UNIT/ML 3 ML VIAL 10 UNIT IVPUSH (23:04)
[2022-03-28 23:42] LABS: Glucose, Whole Blood 269 mg/dL (60-115)
[2022-03-29 00:42] LABS: Glucose, Whole Blood 287 mg/dL (60-115)
[2022-03-29 07:43] LABS: Hemoglobin A1c % > 14.0 %
== END 2022-03-29 01:32 | disposition home or self-care (01) ==
PROVIDERS: Physician Assistant Medical; Emergency Provider Emergency Medicine
DX: E11.65 Type 2 diabetes mellitus with hyperglycemia (principal); R51.9 Headache, unspecified; H53.8 Other visual disturbances; Z20.828 Contact with and (suspected) exposure to other viral communicable diseases; Z20.822 Contact with and (suspected) exposure to COVID-19; Z79.899 Other long term (current) drug therapy; Z79.84 Long term (current) use of oral hypoglycemic drugs
CPT/HCPCS: 0241U; 36415; 71046; 80053; 82009; 82947; 83036; 83735; 84484; 85025; 85610; 93005; 96361; 96374; 99283; 99284

== ENCOUNTER 2022-07-12 10:22 | Emergency (ER) | payer OTHER, SELFPAY ==
[2022-07-12 10:35] VITALS: BP 150/100; PULSE 79; RESP 18; TEMP 36.6; O2SAT 99; BMI 33.9
--- NOTE | 2022-07-12 10:50 | ED_ITS ---
HPI - General Adult General Chief complaint: Recheck/Abnormal Lab/Rx Stated complaint: high bs abnormal labs Time Seen by Provider: 07/12/22 10:49 Source: patient Mode of arrival: ambulatory Limitations: no limitations History of Present Illness HPI narrative: Patient diabetic for about 6-8 months used to be on metformin 850 mg daily increased to 500 mg twice daily in 04/10 patient noncompliant with diet and exerc ise not often does not check his blood sugar was seen at urgent care center for infection around the penis patient diagnosed as candidal infection blood sugar check was 587 in the blood sent but POC was only 230 . Patient was sent here for further evaluation our POC was 400 patient feels otherwise normal no fever no chills no abdominal pain no nausea no vomiting no fever Related Data Previous Rx's Medication Instructions Recorded blood-glucose meter #1 ea 03/19/21 metformin 850 mg tablet 850 mg PO BID #60 tabs 03/19/21 hydrochlorothiazide 25 mg tablet 25 mg PO DAILY #14 tabs 04/05/21 triamcinolone acetonide 0.05 % 1 appl topical BID PRN rash #110 04/05/21 topical ointment grams acetaminophen 500 mg tablet 500 mg PO Q6H PRN fever or pain 01/26/22 (Tylenol Extra Strength) #14 tabs cyclobenzaprine 5 mg tablet 5 mg PO Q8H PRN pain (scale score 01/26/22 7-10) 5 days #14 tabs lidocaine 5 % topical patch 1 patch topical DAILY PRN pain #30 01/26/22 (Lidoderm) ea metformin 850 mg tablet 850 mg PO BID 30 days #60 tabs 01/26/22 naproxen 500 mg tablet 500 mg PO BID PRN pain 10 days #20 01/26/22 tabs glipizide 10 mg tablet 10 mg PO DAILY #90 tabs 07/12/22 Allergies Allergy/AdvReac Type Severity Reaction Status Date / Time No Known Allergies Allergy Verified 03/28/22 20:09 Review of Systems Review of Systems: Yes all other systems are reviewed and are negative [facility] Past Medical History Medical History Diabetes type 2, uncontrolled Social History Social History Alcohol intake: current Alcohol intake frequency: holidays/special occasions only Smoked in Last 30 Days: No Use of substances other than those prescribed or required for medical reasons: No Advance Directives: No Advance Directives Information Provided: Yes Physical Exam ED Vital Signs: Vital Signs - 24 hr 07/12/22 10:35 07/12/22 12:31 Temperature 98 F 98.2 F Pulse Rate 79 57 Respiratory Rate 18 18 Blood Pressure 150/100 H 137/80 Pulse Oximetry 99 98 Oxygen Delivery Method Room Air Room Air BMI result Body Mass Index 33.9 Appearance: Alert. Oriented X3. No acute distress. ENT: Pharynx normal. Oral Mucosa moist Neck: Normal inspection. Neck supple. CVS: Normal heart rate and rhythm. Pulses normal. Respiratory: No respiratory distress. Equal air entry bilateral, no wheezing/rales/rhonchi Abdomen: Soft and nontender. Bowel sounds are present, no mass palpable, no CVA tenderness Skin: Skin warm and dry. Normal skin color. Normal skin turgor. Extremities: No lower extremity edema. No calf tenderness Neuro: Oriented X 3. No motor deficit. Medications Administered Discontinued Medications Generic Name Dose Route Start Last Admin Trade Name Freq PRN Reason Stop Dose Admin Sodium Chloride 1,000 mls @ 999 mls/hr 07/12/22 11:17 07/12/22 11:33 Ns IV 07/12/22 12:17 999 mls/hr .Q1H1M ONE Administration Insulin Human Lispro 14 unit 07/12/22 11:17 07/12/22 11:33 Insulin Lispro 100 Unit/Ml 3 Ml Vial SUBCUT 07/12/22 11:18 14 unit ONCE ONE Administration Ketorolac Tromethamine 30 mg 07/12/22 11:50 07/12/22 12:15 Ketorolac Tromethamine 30 Mg/Ml Vial IVPUSH 07/12/22 11:51 30 mg ONCE ONE Administration Medical Decision Making Medical Decision Making MDM Narrative: Patient diabetic noncompliant medication diet hyperglycemic improved after ins ulin and IV hydration repeat blood sugar 20-15 discharge patient home advised to follow with PCP/business intelligence director Lab Data MDM Lab Attestation statement: I reviewed the patient's lab results. 07/12/22 11:26 07/12/22 11:26 Labs: Lab Results 07/12/22 07/12/22 07/12/22 Range/Units 11:13 11:26 11:26 WBC 8.5 (4.8-10.8) X10*3/uL RBC 5.62 (4.60-5.80) X10*6/uL Hgb 14.8 (14.0-18.0) g/dl Hct 44.6 (42.0-52.0) % MCV 79.4 L (80.0-98.0) fL MCH 26.3 L (27.0-33.0) pg MCHC 33.2 (31.0-36.0) g/dl RDW 13.1 (11.0-16.0) % Plt Count 317 (160-400) X10*3/uL MPV 9.7 (9.4-12.4) fL Immature Gran % (Auto) 0.2 (0.0-0.4) % Neut % (Auto) 48.3 (45-73) % Lymph % (Auto) 35.8 (20-40) % [place] % (Auto) 9.5 (2-11) % Eos % (Auto) 5.1 H (0-4) % Baso % (Auto) 1.1 (0-2) % Lymph # (Auto) 3.0 (1.2-4.9) X10*3/uL [place] # (Auto) 0.8 (0.1-1.2) X10*3/uL Eos # (Auto) 0.4 (0.0-0.4) X10*3/uL Baso # (Auto) 0.1 (0.0-0.2) X10*3/uL Abs Immat Gran (auto) 0.02 (0.00-0.03) X10*3/uL Absolute Neuts (auto) 4.1 (2.0-8.3) x10*3/uL Absolute Nucleated RBC 0.000 (0.0-0.012) X10*3/uL Nucleated RBC % (auto) 0.0 (0.0-0.2) /100WBC Sodium 138 (135-145) mmol/L Potassium 4.4 (3.3-5.1) mmol/L Chloride 103 (96-108) mmol/L Carbon Dioxide 29 (22-29) mmol/L Anion Gap 10 L (12-20) BUN 14 (9-16) mg/dL Creatinine 1.27 (0.5-1.4) mg/dL Estim Creat Clear Calc 107.5 Estimated GFR > 60 POC Glucose 400 H* (60-115) mg/dL Random Glucose 401 H* (60-115) mg/dL Calcium 9.5 (8.4-10.2) mg/dL Total Bilirubin 0.8 (0.0-1.0) mg/dL AST 11 (5-37) U/L ALT 10 (0-40) U/L Alkaline Phosphatase 111 (39-117) U/L Total Protein 7.1 (6.5-8.0) g/dL Albumin 3.9 (3.5-5.0) g/dL Acetone, Qual Negative (Negative) 07/12/22 Range/Units 13:30 WBC (4.8-10.8) X10*3/uL RBC (4.60-5.80) X10*6/uL Hgb (14.0-18.0) g/dl Hct (42.0-52.0) % MCV (80.0-98.0) fL MCH (27.0-33.0) pg MCHC (31.0-36.0) g/dl RDW (11.0-16.0) % Plt Count (160-400) X10*3/uL MPV (9.4-12.4) fL Immature Gran % (Auto) (0.0-0.4) % Neut % (Auto) (45-73) % Lymph % (Auto) (20-40) % [place] % (Auto) (2-11) % Eos % (Auto) (0-4) % Baso % (Auto) (0-2) % Lymph # (Auto) (1.2-4.9) X10*3/uL [place] # (Auto) (0.1-1.2) X10*3/uL Eos # (Auto) (0.0-0.4) X10*3/uL Baso # (Auto) (0.0-0.2) X10*3/uL Abs Immat Gran (auto) (0.00-0.03) X10*3/uL Absolute Neuts (auto) (2.0-8.3) x10*3/uL Absolute Nucleated RBC (0.0-0.012) X10*3/uL Nucleated RBC % (auto) (0.0-0.2) /100WBC Sodium (135-145) mmol/L Potassium (3.3-5.1) mmol/L Chloride (96-108) mmol/L Carbon Dioxide (22-29) mmol/L Anion Gap (12-20) BUN (9-16) mg/dL Creatinine (0.5-1.4) mg/dL Estim Creat Clear Calc Estimated GFR POC Glucose 215 H (60-115) mg/dL Random Glucose (60-115) mg/dL Calcium (8.4-10.2) mg/dL Total Bilirubin (0.0-1.0) mg/dL AST (5-37) U/L ALT (0-40) U/L Alkaline Phosphatase (39-117) U/L Total Protein (6.5-8.0) g/dL Albumin (3.5-5.0) g/dL Acetone, Qual (Negative) Discharge Plan Discharge Clinical Impression: Diabetes type 2, uncontrolled Patient Disposition: Home, Self-Care Instructions: Type 2 Diabetes Management for Adults (ED) Additional Instructions: Drink plenty of fluids Diet restrictions and exercise as advised Continue metformin 850 mg twice daily Start taking Glipizide 10 mg daily Follow-up with business intelligence director as advised Prescriptions: New glipizide 10 mg tablet 10 mg PO DAILY Qty: 90 0RF No Action metformin 850 mg tablet 850 mg PO BID Qty: 60 0RF (DME) blood-glucose meter Kit See Rx Instructions .Route Qty: 1 0RF Rx Instructions: As directed hydrochlorothiazide 25 mg tablet 25 mg PO DAILY Qty: 14 0RF triamcinolone acetonide 0.05 % ointment 1 appl topical BID PRN (Reason: rash) Qty: 110 0RF metformin 850 mg tablet 850 mg PO BID 30 Days Qty: 60 0RF acetaminophen [Tylenol Extra Strength] 500 mg tablet 500 mg PO Q6H PRN (Reason: fever or pain) Qty: 14 0RF lidocaine [Lidoderm] 5 % adhesive patch,medicated 1 patch topical DAILY MDD remove after 12 hours PRN (Reason: pain) Qty: 30 0RF Rx Instructions: leave on most painful area for up to 12 hrs naproxen 500 mg tablet 500 mg PO BID PRN (Reason: pain) 10 Days Qty: 20 0RF cyclobenzaprine 5 mg tablet 5 mg PO Q8H PRN (Reason: pain (scale score 7-10)) 5 Days Qty: 14 0RF Referrals: Steven Nieves MD [Physician] - 2 weeks
[2022-07-12 11:18] LABS: Glucose, Whole Blood 400 mg/dL (60-115)
[2022-07-12 11:31] LABS: MANUAL DIFF FLAG NO
[2022-07-12] MEDS: Insulin Lispro 100 UNIT/ML 3 ML VIAL 14 UNIT SUBCUT (11:33)
[2022-07-12] MEDS: 0.9 % Sodium Chloride 1,000 ML 999 ML IV (11:33)
[2022-07-12 11:37] LABS: Basophils Absolute Auto 0.1 X10*3/uL (0.0-0.2); Basophils Percent Auto 1.1 % (0-2); Eosinophils Absolute Auto 0.4 X10*3/uL (0.0-0.4); Eosinophils Percent Auto 5.1 % (0-4); Hematocrit 44.6 % (42.0-52.0); Hemoglobin 14.8 g/dl (14.0-18.0); Imm Gran Abs Auto 0.02 X10*3/uL (0.00-0.03); Imm Gran Pct Auto 0.2 % (0.0-0.4); Lymphocytes Percent Auto 35.8 % (20-40); Mean Corpuscular HGB Conc 33.2 g/dl (31.0-36.0); Mean Corpuscular Hemoglobin 26.3 pg (27.0-33.0); Mean Corpuscular Volume 79.4 fL (80.0-98.0); Mean Platelet Volume 9.7 fL (9.4-12.4); Monocytes Absolute Auto 0.8 X10*3/uL (0.1-1.2); Monocytes Percent Auto 9.5 % (2-11); Neutrophils Absolute Auto 4.1 x10*3/uL (2.0-8.3); Neutrophils Percent Auto 48.3 % (45-73); Platelet Count 317 X10*3/uL (160-400); Red Blood Count 5.62 X10*6/uL (4.60-5.80); Red Cell Distribution Width 13.1 % (11.0-16.0); White Blood Count 8.5 X10*3/uL (4.8-10.8)
[2022-07-12 12:00] LABS: Alanine Aminotransferase 10 U/L (0-40); Albumin Level 3.9 g/dL (3.5-5.0); Alkaline Phosphatase 111 U/L (39-117); Anion Gap 10 (12-20); Aspartate Amino Transferase 11 U/L (5-37); Bilirubin Total 0.8 mg/dL (0.0-1.0); Blood Urea Nitrogen 14 mg/dL (9-16); Calcium 9.5 mg/dL (8.4-10.2); Carbon Dioxide 29 mmol/L (22-29); Chloride 103 mmol/L (96-108); Creatinine Clr Calc Pharmacy 107.5; Estimated Glomerular Filt Rate > 60; Glucose Random 401 mg/dL (60-115); Potassium 4.4 mmol/L (3.3-5.1); Sodium 138 mmol/L (135-145); Total Protein 7.1 g/dL (6.5-8.0)
[2022-07-12 12:15] LABS: Acetone, serum QL Negative (Negative)
[2022-07-12] MEDS: Ketorolac Tromethamine 30 MG/ML VIAL IVPUSH (12:15)
[2022-07-12 12:31] VITALS: BP 137/80; PULSE 57; RESP 18; TEMP 36.8; O2SAT 98
[2022-07-12 13:34] LABS: Glucose, Whole Blood 215 mg/dL (60-115)
[2022-07-12 14:43] VITALS: BP 151/105; PULSE 77; RESP 16; TEMP 36.7; O2SAT 100
== END 2022-07-12 14:44 | disposition home or self-care (01) ==
PROVIDERS: Emergency Provider Internal Medicine; PCP Internal Medicine
DX: E11.65 Type 2 diabetes mellitus with hyperglycemia (principal); Z79.84 Long term (current) use of oral hypoglycemic drugs
CPT/HCPCS: 36415; 80053; 82009; 82947; 85025; 96361; 96374; 99284; J1885

== ENCOUNTER 2023-04-18 14:06 | Emergency (ER) | payer OTHER, SELFPAY ==
[2023-04-18 14:52] VITALS: BP 151/92; PULSE 106; RESP 20; TEMP 36.8; O2SAT 97; BMI 33.5
--- NOTE | 2023-04-18 14:53 | ED.GENADULT ---
HPI - General Adult General Chief complaint: General Medical Stated complaint: high bs sent from urgent care Time Seen by Provider: 04/18/23 16:50 Source: patient Mode of arrival: ambulatory Limitations: no limitations History of Present Illness HPI narrative: 32-year-old male with history of uncontrolled DM 2 with hemoglobin A1c above 13, patient control his diabetes with metformin 500 mg b.i.d. that he admit that he is not compliant lately because he just started a new state job and he has not taking his metformin regularly, patient normally exercise and play basketball noticed for the past week feeling tired, blurry vision. Went to today told him to come to the hospital for high glucose. Because patient is new state job that he just started patient is declining hospital admission. Related Data Previous Rx's Medication Instructions Recorded blood-glucose meter #1 ea 03/19/21 metformin 850 mg tablet 850 mg PO BID #60 tabs 03/19/21 hydrochlorothiazide 25 mg tablet 25 mg PO DAILY #14 tabs 04/05/21 triamcinolone acetonide 0.05 % 1 appl topical BID PRN rash #110 04/05/21 topical ointment grams acetaminophen 500 mg tablet 500 mg PO Q6H PRN fever or pain 01/26/22 (Tylenol Extra Strength) #14 tabs cyclobenzaprine 5 mg tablet 5 mg PO Q8H PRN pain (scale score 01/26/22 7-10) 5 days #14 tabs lidocaine 5 % topical patch 1 patch topical DAILY PRN pain #30 01/26/22 (Lidoderm) ea metformin 850 mg tablet 850 mg PO BID 30 days #60 tabs 01/26/22 naproxen 500 mg tablet 500 mg PO BID PRN pain 10 days #20 01/26/22 tabs glipizide 10 mg tablet 10 mg PO DAILY #90 tabs 07/12/22 Allergies Allergy/AdvReac Type Severity Reaction Status Date / Time No Known Allergies Allergy Verified 04/18/23 14:55 Review of Systems Review of Systems: All other systems are reviewed and are negative Constitutional: Reports as per HPI and Reports no additional constitutional complaints Eyes: Reports as per HPI and Reports no additional eye complaints Reports system reviewed and no additional complaints, except as documented Cardiovascular: Reports as per HPI and Reports no additional cardiovascular complaints Respiratory: Reports as per HPI and Reports no additional respiratory complaints Gastrointestinal: Reports as per HPI and Reports no additional gastrointestinal complaints Genitourinary: Reports no additional female genitourinary complaints Musculoskeletal: Reports no additional musculoskeletal complaints Skin/Breast: Reports system reviewed and no additional complaints, except as docu Psychiatric: Reports no additional psychiatric complaints Endocrine: Reports no additional endocrine complaints Hematologic/Lymphatic: Reports no additional hematologic/lymphatic complaints Allergic/Immunologic: Reports no additional allergic/immunologic complaints Reports system reviewed and no additional complaints, except as documented and Reports Abnormal speech present [facility] Past Medical History Medical History Diabetes type 2, uncontrolled Social History Social History Alcohol intake: current Alcohol intake frequency: holidays/special occasions only Smoked in Last 30 Days: No Advance Directives: No Advance Directives Information Provided: No Physical Exam ED Vital Signs: Vital Signs - 24 hr 04/18/23 14:52 04/18/23 16:39 04/18/23 18:13 Temperature 98.2 F 98.1 F 97.7 F Pulse Rate 106 H 95 97 Respiratory Rate 20 21 H 16 Blood Pressure 151/92 H 157/98 H 154/90 H Pulse Oximetry 97 98 97 Oxygen Delivery Method Room Air Room Air Room Air BMI result Body Mass Index 33.5 Vital signs have been reviewed and appear to be correct. Blood pressure elevated. Heart rate normal. Respiratory rate normal. Temperature normal. Oxygen saturation normal. Appearance: Alert. Oriented X3. No acute distress. Head: Normal external exam. Normocephalic. Atraumatic. No Kaplan signs noted. No raccoon eyes noted Eyes: PERRLA. EOMI. Conjunctiva and sclera normal. Eyelids normal. ENT: TM's Normal. Pharynx normal. Uvula midline. Moist mucous membranes. No trismus noted. No drooling noted. No muffled voice noted. Neck: Normal inspection. Neck supple. FROM. No adenopathy. Thyroid Normal. No meningeal signs. No neck mass noted. CVS: Normal heart rate and rhythm. Heart sound normal. No murmurs noted. Pulses normal throughout. Respiratory: No respiratory distress. Painless inspiration. Breath sounds normal. No wheezes/rales/rhonchi noted. Chest nontender. No accessory muscle usage noted or decreased air movement noted. Abdomen: Soft and nontender. Bowel sounds normal in all 4 quadrants. No distention noted. No organomegaly noted. No visible injury noted. Back: No CVA tenderness. Full range of motion noted. Skin: Skin warm and dry. Normal skin color. Normal skin turgor. No rashes/lesions/lacerations noted. Extremities: No lower extremity edema. Extremities exhibit normal range of motion. Extremities nontender. Neuro: Oriented X 3. Cranial nerve exam: II-XII are grossly intact No motor deficit. No sensory deficit. Reflexes normal. Course Course Course Narrative: RME- 32-year-old male presents for evaluation of dizziness and blurry vision that started this morning. He went to urgent care and was told his glucose is over 500. Plan for labs Reevaluation(s) Reevaluation #1: This is a 32-year-old male with type 2 diabetes noncompliant with metformin, BS was above 700 with symptoms patient should be admitted to the hospital but patient declined because he has starting a new state job. Patient was educated about diabetes and the importance of being compliant with his medication I instructed the patient to increase his dose from 500 mg of metformin b.i.d. to a 1000 mg b.i.d. and follow-up with PCP. patient fully understood my instructions. Time: 22:32 Medications Administered Discontinued Medications Generic Name Dose Route Start Last Admin Trade Name Freq PRN Reason Stop Dose Admin Sodium Chloride 1,000 mls @ 999 mls/hr 04/18/23 17:00 04/18/23 17:37 Ns IV 04/18/23 18:00 Infused .Q1H1M ONE Infusion Sodium Chloride 1,000 mls @ 999 mls/hr 04/18/23 18:11 04/18/23 18:54 Ns IV 04/18/23 19:11 Infused .Q1H1M ONE Infusion Sodium Chloride 1,000 mls @ 999 mls/hr 04/18/23 19:51 04/18/23 20:53 Ns IV 04/18/23 20:51 Infused .Q1H1M ONE Infusion Sodium Chloride 1,000 mls @ 999 mls/hr 04/18/23 20:50 04/18/23 22:03 Ns IV 04/18/23 21:50 Infused .Q1H1M ONE Infusion Insulin Human Regular 10 unit 04/18/23 16:52 04/18/23 17:34 Insulin Regular, Human 100 Unit/Ml 3 Ml Vial IVPUSH 04/18/23 16:53 10 unit ONCE ONE Administration Medical Decision Making Differential Diagnosis Differential Diagnoses: The differential diagnosis associated with the presentation includes (DKA, hyperglycemia, electrolyte derangement, severe dehydration, UTI. Severe anemia.) Admission/Observation Consideration of admission/observation: Escalation of care including admission/observation considered Lab Data MDM Lab Attestation statement: I reviewed the patient's lab results. 04/18/23 15:37 04/18/23 15:37 Labs: Lab Results 04/18/23 04/18/23 04/18/23 Range/Units 15:37 15:40 17:33 WBC 8.7 (4.8-10.8) X10*3/uL RBC 5.76 (4.60-5.80) X10*6/uL Hgb 15.5 (14.0-18.0) g/dl Hct 45.4 (42.0-52.0) % MCV 78.8 L (80.0-98.0) fL MCH 26.9 L (27.0-33.0) pg MCHC 34.1 (31.0-36.0) g/dl RDW 13.2 (11.0-16.0) % Plt Count 315 (160-400) X10*3/uL MPV 10.2 (9.4-12.4) fL Immature Gran % (Auto) 0.2 (0.0-0.4) % Neut % (Auto) 55.6 (45-73) % Lymph % (Auto) 31.6 (20-40) % [place] % (Auto) 8.4 (2-11) % Eos % (Auto) 2.9 (0-4) % Baso % (Auto) 1.3 (0-2) % Lymph # (Auto) 2.7 (1.2-4.9) X10*3/uL [place] # (Auto) 0.7 (0.1-1.2) X10*3/uL Eos # (Auto) 0.3 (0.0-0.4) X10*3/uL Baso # (Auto) 0.1 (0.0-0.2) X10*3/uL Abs Immat Gran (auto) 0.02 (0.00-0.03) X10*3/uL Absolute Neuts (auto) 4.8 (2.0-8.3) x10*3/uL Absolute Nucleated RBC 0.000 (0.0-0.012) X10*3/uL Nucleated RBC % (auto) 0.0 (0.0-0.2) /100WBC Sodium 136 (135-145) mmol/L Potassium 5.2 H (3.3-5.1) mmol/L Chloride 97 (96-108) mmol/L Carbon Dioxide 25 (22-29) mmol/L Anion Gap 19 (12-20) BUN 13 (9-16) mg/dL Creatinine 1.83 H (0.5-1.4) mg/dL Estim Creat Clear Calc 77.7 Estimated GFR 43 POC Glucose > 600 H* (60-115) mg/dL Random Glucose 767 H* (60-115) mg/dL Calcium 9.5 (8.4-10.2) mg/dL Total Bilirubin 0.7 (0.0-1.0) mg/dL AST 11 (5-37) U/L ALT 16 (0-40) U/L Alkaline Phosphatase 121 H (39-117) U/L Total Protein 7.6 (6.5-8.0) g/dL Albumin 4.2 (3.5-5.0) g/dL Lipase 46 (8-78) U/L Beta-Hydroxybutyrate 0.13 (0.02-0.27) mmol/L Urine Color Yellow Urine Appearance Clear Urine pH 5.5 (5.0-9.0) Ur Specific [place] >= 1.030 H (1.005-1.025) Urine Protein Negative (Neg-Trace) mg/dL Urine Glucose (UA) >=1000 H (Negative) mg/dL Urine Ketones Negative (Negative) mg/dL Urine Blood Negative (Negative) Urine Nitrite Negative (Negative) Ur Leukocyte Esterase Negative (Negative) Urine RBC 0-2 (0-2) /HPF Urine WBC 0-5 (0-5) /HPF Ur Squamous Epith Cells 0-2 (0-2) /HPF Urine Bacteria None Seen (None Seen) Hyaline Casts 0-2 (0-2) /LPF 04/18/23 04/18/23 04/18/23 Range/Units 18:09 18:41 19:10 WBC (4.8-10.8) X10*3/uL RBC (4.60-5.80) X10*6/uL Hgb (14.0-18.0) g/dl Hct (42.0-52.0) % MCV (80.0-98.0) fL MCH (27.0-33.0) pg MCHC (31.0-36.0) g/dl RDW (11.0-16.0) % Plt Count (160-400) X10*3/uL MPV (9.4-12.4) fL Immature Gran % (Auto) (0.0-0.4) % Neut % (Auto) (45-73) % Lymph % (Auto) (20-40) % [place] % (Auto) (2-11) % Eos % (Auto) (0-4) % Baso % (Auto) (0-2) % Lymph # (Auto) (1.2-4.9) X10*3/uL [place] # (Auto) (0.1-1.2) X10*3/uL Eos # (Auto) (0.0-0.4) X10*3/uL Baso # (Auto) (0.0-0.2) X10*3/uL Abs Immat Gran (auto) (0.00-0.03) X10*3/uL Absolute Neuts (auto) (2.0-8.3) x10*3/uL Absolute Nucleated RBC (0.0-0.012) X10*3/uL Nucleated RBC % (auto) (0.0-0.2) /100WBC Sodium (135-145) mmol/L Potassium (3.3-5.1) mmol/L Chloride (96-108) mmol/L Carbon Dioxide (22-29) mmol/L Anion Gap (12-20) BUN (9-16) mg/dL Creatinine (0.5-1.4) mg/dL Estim Creat Clear Calc Estimated GFR POC Glucose 416 H* 351 H* 364 H* (60-115) mg/dL Random Glucose (60-115) mg/dL Calcium (8.4-10.2) mg/dL Total Bilirubin (0.0-1.0) mg/dL AST (5-37) U/L ALT (0-40) U/L Alkaline Phosphatase (39-117) U/L Total Protein (6.5-8.0) g/dL Albumin (3.5-5.0) g/dL Lipase (8-78) U/L Beta-Hydroxybutyrate (0.02-0.27) mmol/L Urine Color Urine Appearance Urine pH (5.0-9.0) Ur Specific [place] (1.005-1.025) Urine Protein (Neg-Trace) mg/dL Urine Glucose (UA) (Negative) mg/dL Urine Ketones (Negative) mg/dL Urine Blood (Negative) Urine Nitrite (Negative) Ur Leukocyte Esterase (Negative) Urine RBC (0-2) /HPF Urine WBC (0-5) /HPF Ur Squamous Epith Cells (0-2) /HPF Urine Bacteria (None Seen) Hyaline Casts (0-2) /LPF 04/18/23 04/18/23 04/18/23 Range/Units 19:41 20:22 21:20 WBC (4.8-10.8) X10*3/uL RBC (4.60-5.80) X10*6/uL Hgb (14.0-18.0) g/dl Hct (42.0-52.0) % MCV (80.0-98.0) fL MCH (27.0-33.0) pg MCHC (31.0-36.0) g/dl RDW (11.0-16.0) % Plt Count (160-400) X10*3/uL MPV (9.4-12.4) fL Immature Gran % (Auto) (0.0-0.4) % Neut % (Auto) (45-73) % Lymph % (Auto) (20-40) % [place] % (Auto) (2-11) % Eos % (Auto) (0-4) % Baso % (Auto) (0-2) % Lymph # (Auto) (1.2-4.9) X10*3/uL [place] # (Auto) (0.1-1.2) X10*3/uL Eos # (Auto) (0.0-0.4) X10*3/uL Baso # (Auto) (0.0-0.2) X10*3/uL Abs Immat Gran (auto) (0.00-0.03) X10*3/uL Absolute Neuts (auto) (2.0-8.3) x10*3/uL Absolute Nucleated RBC (0.0-0.012) X10*3/uL Nucleated RBC % (auto) (0.0-0.2) /100WBC Sodium (135-145) mmol/L Potassium (3.3-5.1) mmol/L Chloride (96-108) mmol/L Carbon Dioxide (22-29) mmol/L Anion Gap (12-20) BUN (9-16) mg/dL Creatinine (0.5-1.4) mg/dL Estim Creat Clear Calc Estimated GFR POC Glucose 357 H* 363 H* 311 H (60-115) mg/dL Random Glucose (60-115) mg/dL Calcium (8.4-10.2) mg/dL Total Bilirubin (0.0-1.0) mg/dL AST (5-37) U/L ALT (0-40) U/L Alkaline Phosphatase (39-117) U/L Total Protein (6.5-8.0) g/dL Albumin (3.5-5.0) g/dL Lipase (8-78) U/L Beta-Hydroxybutyrate (0.02-0.27) mmol/L Urine Color Urine Appearance Urine pH (5.0-9.0) Ur Specific [place] (1.005-1.025) Urine Protein (Neg-Trace) mg/dL Urine Glucose (UA) (Negative) mg/dL Urine Ketones (Negative) mg/dL Urine Blood (Negative) Urine Nitrite (Negative) Ur Leukocyte Esterase (Negative) Urine RBC (0-2) /HPF Urine WBC (0-5) /HPF Ur Squamous Epith Cells (0-2) /HPF Urine Bacteria (None Seen) Hyaline Casts (0-2) /LPF 04/18/23 Range/Units 22:23 WBC (4.8-10.8) X10*3/uL RBC (4.60-5.80) X10*6/uL Hgb (14.0-18.0) g/dl Hct (42.0-52.0) % MCV (80.0-98.0) fL MCH (27.0-33.0) pg MCHC (31.0-36.0) g/dl RDW (11.0-16.0) % Plt Count (160-400) X10*3/uL MPV (9.4-12.4) fL Immature Gran % (Auto) (0.0-0.4) % Neut % (Auto) (45-73) % Lymph % (Auto) (20-40) % [place] % (Auto) (2-11) % Eos % (Auto) (0-4) % Baso % (Auto) (0-2) % Lymph # (Auto) (1.2-4.9) X10*3/uL [place] # (Auto) (0.1-1.2) X10*3/uL Eos # (Auto) (0.0-0.4) X10*3/uL Baso # (Auto) (0.0-0.2) X10*3/uL Abs Immat Gran (auto) (0.00-0.03) X10*3/uL Absolute Neuts (auto) (2.0-8.3) x10*3/uL Absolute Nucleated RBC (0.0-0.012) X10*3/uL Nucleated RBC % (auto) (0.0-0.2) /100WBC Sodium (135-145) mmol/L Potassium (3.3-5.1) mmol/L Chloride (96-108) mmol/L Carbon Dioxide (22-29) mmol/L Anion Gap (12-20) BUN (9-16) mg/dL Creatinine (0.5-1.4) mg/dL Estim Creat Clear Calc Estimated GFR POC Glucose 305 H (60-115) mg/dL Random Glucose (60-115) mg/dL Calcium (8.4-10.2) mg/dL Total Bilirubin (0.0-1.0) mg/dL AST (5-37) U/L ALT (0-40) U/L Alkaline Phosphatase (39-117) U/L Total Protein (6.5-8.0) g/dL Albumin (3.5-5.0) g/dL Lipase (8-78) U/L Beta-Hydroxybutyrate (0.02-0.27) mmol/L Urine Color Urine Appearance Urine pH (5.0-9.0) Ur Specific [place] (1.005-1.025) Urine Protein (Neg-Trace) mg/dL Urine Glucose (UA) (Negative) mg/dL Urine Ketones (Negative) mg/dL Urine Blood (Negative) Urine Nitrite (Negative) Ur Leukocyte Esterase (Negative) Urine RBC (0-2) /HPF Urine WBC (0-5) /HPF Ur Squamous Epith Cells (0-2) /HPF Urine Bacteria (None Seen) Hyaline Casts (0-2) /LPF Chronic Conditions Patient?s care impacted by: Diabetes (No compliance with medication.) Discharge Plan Discharge Clinical Impression: Diabetes type 2, uncontrolled, Acute hyperglycemia Patient Disposition: Home, Self-Care Instructions: Diabetic Hyperglycemia (ED) Additional Instructions: Take metformin 1000 mg in the morning and another 1000 mg at nighttime instead of 500 mg. Prescriptions: No Action metformin 850 mg tablet 850 mg PO BID Qty: 60 0RF (DME) blood-glucose meter Kit See Rx Instructions .Route Qty: 1 0RF Rx Instructions: As directed hydrochlorothiazide 25 mg tablet 25 mg PO DAILY Qty: 14 0RF triamcinolone acetonide 0.05 % ointment 1 appl topical BID PRN (Reason: rash) Qty: 110 0RF metformin 850 mg tablet 850 mg PO BID 30 Days Qty: 60 0RF acetaminophen [Tylenol Extra Strength] 500 mg tablet 500 mg PO Q6H PRN (Reason: fever or pain) Qty: 14 0RF lidocaine [Lidoderm] 5 % adhesive patch,medicated 1 patch topical DAILY MDD remove after 12 hours PRN (Reason: pain) Qty: 30 0RF Rx Instructions: leave on most painful area for up to 12 hrs naproxen 500 mg tablet 500 mg PO BID PRN (Reason: pain) 10 Days Qty: 20 0RF cyclobenzaprine 5 mg tablet 5 mg PO Q8H PRN (Reason: pain (scale score 7-10)) 5 Days Qty: 14 0RF glipizide 10 mg tablet 10 mg PO DAILY Qty: 90 0RF Referrals: Prasanna Reynoso MD [Primary Care Provider] -
[2023-04-18 15:41] LABS: MANUAL DIFF FLAG NO
[2023-04-18 15:42] LABS: Basophils Absolute Auto 0.1 X10*3/uL (0.0-0.2); Basophils Percent Auto 1.3 % (0-2); Eosinophils Absolute Auto 0.3 X10*3/uL (0.0-0.4); Eosinophils Percent Auto 2.9 % (0-4); Hematocrit 45.4 % (42.0-52.0); Hemoglobin 15.5 g/dl (14.0-18.0); Imm Gran Abs Auto 0.02 X10*3/uL (0.00-0.03); Imm Gran Pct Auto 0.2 % (0.0-0.4); Lymphocytes Absolute Auto 2.7 X10*3/uL (1.2-4.9); Lymphocytes Percent Auto 31.6 % (20-40); Mean Corpuscular HGB Conc 34.1 g/dl (31.0-36.0); Mean Corpuscular Hemoglobin 26.9 pg (27.0-33.0); Mean Corpuscular Volume 78.8 fL (80.0-98.0); Mean Platelet Volume 10.2 fL (9.4-12.4); Monocytes Absolute Auto 0.7 X10*3/uL (0.1-1.2); Monocytes Percent Auto 8.4 % (2-11); Neutrophils Absolute Auto 4.8 x10*3/uL (2.0-8.3); Neutrophils Percent Auto 55.6 % (45-73); Platelet Count 315 X10*3/uL (160-400); Red Blood Count 5.76 X10*6/uL (4.60-5.80); Red Cell Distribution Width 13.2 % (11.0-16.0); White Blood Count 8.7 X10*3/uL (4.8-10.8)
[2023-04-18 16:02] LABS: Alanine Aminotransferase 16 U/L (0-40); Albumin Level 4.2 g/dL (3.5-5.0); Alkaline Phosphatase 121 U/L (39-117); Anion Gap 19 (12-20); Aspartate Amino Transferase 11 U/L (5-37); Beta-Hydroxybutyrate 0.13 mmol/L (0.02-0.27); Bilirubin Total 0.7 mg/dL (0.0-1.0); Blood Urea Nitrogen 13 mg/dL (9-16); Calcium 9.5 mg/dL (8.4-10.2); Carbon Dioxide 25 mmol/L (22-29); Chloride 97 mmol/L (96-108); Creatinine Clr Calc Pharmacy 77.7; Estimated Glomerular Filt Rate 43; Lipase 46 U/L (8-78); Potassium 5.2 mmol/L (3.3-5.1); Sodium 136 mmol/L (135-145); Total Protein 7.6 g/dL (6.5-8.0)
[2023-04-18 16:06] LABS: Appearance Urine Clear; Color Urine Yellow; Glucose Urine UA >=1000 mg/dL (Negative); Leukocyte Esterase Urine Negative (Negative); Nitrite Urine Negative (Negative); PH 5.5 (5.0-9.0); Specific Gravity - Urine >= 1.030 (1.005-1.025); UMIC TRIGGER UACC YES; Urine Blood Negative (Negative); Urine Ketones Negative (Negative); Urine Protein Negative (Neg-Trace)
[2023-04-18 16:09] LABS: Bacteria Urine None Seen (None Seen); Hyaline Casts Urine 0-2 /LPF (0-2); RBC Urine 0-2 /HPF (0-2); Squamous Epithelial Cell Urine 0-2 /HPF (0-2); WBC Urine 0-5 /HPF (0-5)
[2023-04-18 16:21] LABS: Glucose Random 767 mg/dL (60-115)
[2023-04-18 16:39] VITALS: BP 157/98; PULSE 95; RESP 21; TEMP 36.7; O2SAT 98
[2023-04-18] MEDS: 0.9 % Sodium Chloride 1,000 ML 999 ML IV ×4 (17:34→21:02)
[2023-04-18] MEDS: Insulin Regular, Human 100 UNIT/ML 3 ML VIAL 10 UNIT IVPUSH (17:34)
--- NOTE | 2023-04-18 17:37 | PC.NURSE ---
patient alert and oriented x3 medicated per mar with 10 u of iv insulin. patient denies any pain, respirations equal and unlabored, skin warm, dry and intact.
--- NOTE | 2023-04-18 17:37 | MHC.EDTECH ---
Checked POC glucose. Glucometer showed HI X2.
[2023-04-18 17:38] LABS: Glucose, Whole Blood > 600 mg/dL (60-115)
[2023-04-18 18:13] VITALS: BP 154/90; PULSE 97; RESP 16; TEMP 36.5; O2SAT 97
[2023-04-18 18:13] LABS: Glucose, Whole Blood 416 mg/dL (60-115)
--- NOTE | 2023-04-18 18:16 | PC.NURSE ---
patient resting quietly in bed, VSS, patient states he feels as if his vision is no longer blurry, patient states he is tired, alert and oriented x3. patient getting glucose checks q30 min.
[2023-04-18 18:46] LABS: Glucose, Whole Blood 351 mg/dL (60-115)
[2023-04-18 19:13] LABS: Glucose, Whole Blood 364 mg/dL (60-115)
[2023-04-18 19:45] LABS: Glucose, Whole Blood 357 mg/dL (60-115)
--- NOTE | 2023-04-18 19:55 | PC.NURSE ---
this rn assumed care of pt. pt ambulated to bathroom with steady gait, denies sob and chest pain. bolus administered at this time, call frances within reach.
[2023-04-18 20:25] LABS: Glucose, Whole Blood 363 mg/dL (60-115)
[2023-04-18 21:24] LABS: Glucose, Whole Blood 311 mg/dL (60-115)
[2023-04-18 22:26] LABS: Glucose, Whole Blood 305 mg/dL (60-115)
[2023-04-18 22:35] VITALS: BP 157/108; PULSE 90; RESP 18; TEMP 36.5; O2SAT 97
[2023-04-20 09:13] LABS: Glucose, Whole Blood > 600 mg/dL (60-115)
== END 2023-04-18 23:00 | disposition home or self-care (01) ==
PROVIDERS: Physician Assistant; Emergency Provider Emergency Medicine; PCP Internal Medicine
DX: E11.65 Type 2 diabetes mellitus with hyperglycemia (principal); Z79.4 Long term (current) use of insulin; Z79.84 Long term (current) use of oral hypoglycemic drugs; Z91.148 Patient's other noncompliance with medication regimen for other reason; H53.8 Other visual disturbances
CPT/HCPCS: 36415; 80053; 81001; 82010; 82947; 83690; 85025; 96361; 96374; 99284

== ENCOUNTER 2023-05-23 08:07 | Inpatient (IN) | payer OTHER, SELFPAY ==
[2023-05-23] VITALS (7 sets, daily range): BP systolic 122–157; BP diastolic 62–104; PULSE 69–100; RESP 15–20; TEMP 36.2–36.7; O2SAT 95–98; BMI 31.4
--- NOTE | ~2023-05-23 | XR_ITS ---
EXAMINATION: XR CHEST CLINICAL INFORMATION: DKA. COMPARISON: Chest radiograph 03/28/2022. TECHNIQUE: 2 views of the chest were obtained. FINDINGS: Normal appearance of the cardiomediastinal silhouette. No focal airspace opacities, pleural effusion or pneumothorax. No pulmonary edema. No acute osseous findings. Visualized upper abdomen is within normal limits. XR/XR chest 2V IMPRESSION: No acute cardiopulmonary findings.
--- NOTE | 2023-05-23 08:17 | ECG_ITS ---
Test Reason : DIZZINESS Blood Pressure : / mmHG Vent. Rate : 093 BPM Atrial Rate : 093 BPM P-R Int : 170 ms QRS Dur : 110 ms QT Int : 342 ms P-R-T Axes : 013 085 -08 degrees QTc Int : 425 ms Normal sinus rhythm ST & T wave abnormality, consider inferior ischemia Abnormal ECG When compared with ECG of 28-MAR-2022 21:10, No significant change was found Referred By: Dav Christianson Electronically Signed By:MING LAN MD
--- NOTE | 2023-05-23 08:19 | ED.GENADULT ---
HPI - General Adult General Chief complaint: General Medical Stated complaint: High Blood Sugar Time Seen by Provider: 05/23/23 08:18 Source: patient Mode of arrival: ambulatory Limitations: no limitations History of Present Illness HPI narrative: 32-year-old uncontrolled type 2 diabetes with hemoglobin A1c above 13 presents emergency department with hyperglycemia patient does take metformin he is not compliant with his medications he does exercise regularly comes in complaining of blurry vision and noted his blood sugar was above 600 came into the ER. He was seen here last month with the same refused admission stating he recently started a new job. Onset (ago): year(s) Related Data Previous Rx's ?Medication ?Instructions ?Recorded blood-glucose meter #1 ea 03/19/21 metformin 850 mg tablet 850 mg PO BID #60 tabs 03/19/21 hydrochlorothiazide 25 mg tablet 25 mg PO DAILY #14 tabs 04/05/21 triamcinolone acetonide 0.05 % 1 appl topical BID PRN rash #110 04/05/21 topical ointment grams acetaminophen 500 mg tablet 500 mg PO Q6H PRN fever or pain 01/26/22 (Tylenol Extra Strength) #14 tabs cyclobenzaprine 5 mg tablet 5 mg PO Q8H PRN pain (scale score 01/26/22 7-10) 5 days #14 tabs lidocaine 5 % topical patch 1 patch topical DAILY PRN pain #30 01/26/22 (Lidoderm) ea metformin 850 mg tablet 850 mg PO BID 30 days #60 tabs 01/26/22 naproxen 500 mg tablet 500 mg PO BID PRN pain 10 days #20 01/26/22 tabs glipizide 10 mg tablet 10 mg PO DAILY #90 tabs 07/12/22 Allergies Allergy/AdvReac Type Severity Reaction Status Date / Time No Known Allergies Allergy Verified 05/23/23 08:15 Review of Systems Review of Systems: Review of systems: General: Fatigue Patient denies any fever chills recent illness or falls Musculoskeletal: Denies back pain or body aches or other injuries HEENT: Blurry vision denies headache, runny nose, ear pain Respiratory: denies shortness of breath, cough Cardiovascular: no chest pain or palpitations : denies dysuria, frequency Abdomen: no nausea vomiting denies abdominal pain Extremities: no swelling, no pain Skin: no diaphoresis Yes all other systems are reviewed and are negative PMFSH Past Medical History Medical History Diabetes type 2, uncontrolled Social History Social History Alcohol intake: current Alcohol intake frequency: holidays/special occasions only Advance Directives: No Physical Exam ED Vital Signs: Vital Signs - 24 hr 05/23/23 08:12 05/23/23 08:24 05/23/23 09:24 Temperature 98.0 F 97.7 F 97.7 F Pulse Rate 98 100 81 Respiratory Rate 20 20 15 Blood Pressure 140/99 H 149/93 H 140/100 H Pulse Oximetry 98 97 95 Oxygen Delivery Method Room Air Room Air Room Air BMI result Body Mass Index 31.4 Neurological exam: CN II- XII tested. Patient is alert and oriented to person place and time. Patient has no dysphagia or dysarthia, denies good vision in all four vision rodriguez no nystagmus on exam, good strength to upper and lower extremities with normal reflexes to brachioradialis, wrist, patella and achilles. Negative romberg, good finger to nose and heel to brown. General: Well-appearing well-nourished in no signs of distress HEENT: Normocephalic atraumatic Neck: No signs of JVD, no masses no tenderness or lymphadenopathy Cardiovascular: Regular rate and rhythm Respiratory: Clear to auscultation bilaterally Abdomen: Soft nontender no masses Extremities: Normal pedal pulses no signs of edema Skin: Dry warm no rashes Back: No tenderness full ROM Medications Administered Generic Name Dose Route Start Last Admin Trade Name Freq PRN Reason Stop Dose Admin Insulin Human Lispro 0 unit 05/23/23 11:30 05/23/23 09:55 Insulin Lispro 100 Unit/Ml 3 Ml Vial SUBCUT 12 unit QIDACHS CLIFFORD Administration Protocol Discontinued Medications Generic Name Dose Route Start Last Admin Trade Name Freq PRN Reason Stop Dose Admin Sodium Chloride 1,000 mls @ 999 mls/hr 05/23/23 08:30 05/23/23 10:01 Ns IV 05/23/23 09:30 Infused .Q1H1M CLIFFORD Infusion Sodium Chloride 1,000 mls @ 999 mls/hr 05/23/23 08:30 05/23/23 10:01 Ns IV 05/23/23 09:30 Infused .Q1H1M CLIFFORD Infusion Sodium Chloride 1,000 mls @ 999 mls/hr 05/23/23 09:30 05/23/23 09:58 Ns IV 05/23/23 10:30 999 mls/hr .Q1H1M CLIFFORD Administration Medical Decision Making Medical Decision Making [facility] Narrative: I will start the patient on 2 L fluid wave for the BNP to give the patient insulin I do think the patient would benefit from admission Differential Diagnosis Differential Diagnoses: The differential diagnosis associated with the presentation includes Hyperglycemic hyperosmolar coma DKA medication noncompliance dehydration pneumonia UTI sepsis Admission/Observation Consideration of admission/observation: Escalation of care including admission/observation considered Patient was given 12 units of regular insulin blood sugar dropped to 474 I will give another 10 units at this time patient is not safe to go to the floor Consult Healthcare Provider Management of the patient was discussed with: Hospitalist and Office Support I did speak with Dr. Ruvalcaba who agrees the patient is safe for the floor I then spoke with the hospitalist who states that blood sugar has to be below 500 IV 100. Lab Data [facility] Lab Attestation statement: I reviewed the patient's lab results. Lactic acid 3.2 likely metformin induced patient is on a 1000 mg b.i.d. swelling medications takes for his diabetes likely benefit from changing will likely benefit from admission patient is still pending the rest of his chemistries at this time 05/23/23 08:47 05/23/23 08:47 Labs: Lab Results 05/23/23 05/23/23 05/23/23 Range/Units 08:27 08:45 08:47 WBC 6.8 (4.8-10.8) X10*3/uL RBC 5.77 (4.60-5.80) X10*6/uL Hgb 15.4 (14.0-18.0) g/dl Hct 45.0 (42.0-52.0) % MCV 78.0 L (80.0-98.0) fL MCH 26.7 L (27.0-33.0) pg MCHC 34.2 (31.0-36.0) g/dl RDW 13.1 (11.0-16.0) % Plt Count 316 (160-400) X10*3/uL MPV 10.1 (9.4-12.4) fL Immature Gran % (Auto) 0.4 (0.0-0.4) % Neut % (Auto) 55.3 (45-73) % Lymph % (Auto) 31.7 (20-40) % [place] % (Auto) 7.4 (2-11) % Eos % (Auto) 4.0 (0-4) % Baso % (Auto) 1.2 (0-2) % Lymph # (Auto) 2.1 (1.2-4.9) X10*3/uL [place] # (Auto) 0.5 (0.1-1.2) X10*3/uL Eos # (Auto) 0.3 (0.0-0.4) X10*3/uL Baso # (Auto) 0.1 (0.0-0.2) X10*3/uL Abs Immat Gran (auto) 0.03 (0.00-0.03) X10*3/uL Absolute Neuts (auto) 3.7 (2.0-8.3) x10*3/uL Absolute Nucleated RBC 0.000 (0.0-0.012) X10*3/uL Nucleated RBC % (auto) 0.0 (0.0-0.2) /100WBC VBG pH (7.32-7.43) VBG pCO2 mmHg VBG pO2 mmHg VBG HCO3 (22-26) mmol/L VBG O2 Saturation % VBG Base Excess mmol/L Sodium 132 L (135-145) mmol/L Potassium 3.9 D (3.3-5.1) mmol/L Chloride 97 (96-108) mmol/L Carbon Dioxide 25 (22-29) mmol/L Anion Gap 14 (12-20) BUN 14 (9-16) mg/dL Creatinine 1.81 H (0.5-1.4) mg/dL Estim Creat Clear Calc 76.1 Estimated GFR 43 POC Glucose > 600 H* > 600 H* (60-115) mg/dL Random Glucose 795 H* (60-115) mg/dL Lactic Acid 3.2 H* (0.5-2.0) mmol/L Calcium 8.9 D (8.4-10.2) mg/dL Total Bilirubin 0.6 (0.0-1.0) mg/dL Direct Bilirubin 0.2 (0.0-0.5) mg/dL AST 12 (5-37) U/L ALT 12 (0-40) U/L Alkaline Phosphatase 154 H (39-117) U/L Total Protein 7.4 (6.5-8.0) g/dL Albumin 3.8 (3.5-5.0) g/dL Lipase 49 (8-78) U/L Beta-Hydroxybutyrate 0.15 (0.02-0.27) mmol/L Urine Color Urine Appearance Urine pH (5.0-9.0) Ur Specific [place] (1.005-1.025) Urine Protein (Neg-Trace) mg/dL Urine Glucose (UA) (Negative) mg/dL Urine Ketones (Negative) mg/dL Urine Blood (Negative) Urine Nitrite (Negative) Ur Leukocyte Esterase (Negative) Urine RBC (0-2) /HPF Urine WBC (0-5) /HPF Ur Squamous Epith Cells (0-2) /HPF Urine Bacteria (None Seen) Hyaline Casts (0-2) /LPF S. pyogenes GrpA LACY (Negative) 05/23/23 05/23/23 05/23/23 Range/Units 08:50 09:03 10:12 WBC (4.8-10.8) X10*3/uL RBC (4.60-5.80) X10*6/uL Hgb (14.0-18.0) g/dl Hct (42.0-52.0) % MCV (80.0-98.0) fL MCH (27.0-33.0) pg MCHC (31.0-36.0) g/dl RDW (11.0-16.0) % Plt Count (160-400) X10*3/uL MPV (9.4-12.4) fL Immature Gran % (Auto) (0.0-0.4) % Neut % (Auto) (45-73) % Lymph % (Auto) (20-40) % [place] % (Auto) (2-11) % Eos % (Auto) (0-4) % Baso % (Auto) (0-2) % Lymph # (Auto) (1.2-4.9) X10*3/uL [place] # (Auto) (0.1-1.2) X10*3/uL Eos # (Auto) (0.0-0.4) X10*3/uL Baso # (Auto) (0.0-0.2) X10*3/uL Abs Immat Gran (auto) (0.00-0.03) X10*3/uL Absolute Neuts (auto) (2.0-8.3) x10*3/uL Absolute Nucleated RBC (0.0-0.012) X10*3/uL Nucleated RBC % (auto) (0.0-0.2) /100WBC VBG pH 7.37 (7.32-7.43) VBG pCO2 41 mmHg VBG pO2 62 mmHg VBG HCO3 23 (22-26) mmol/L VBG O2 Saturation 89.0 % VBG Base Excess -1.3 mmol/L Sodium (135-145) mmol/L Potassium (3.3-5.1) mmol/L Chloride (96-108) mmol/L Carbon Dioxide (22-29) mmol/L Anion Gap (12-20) BUN (9-16) mg/dL Creatinine (0.5-1.4) mg/dL Estim Creat Clear Calc Estimated GFR POC Glucose (60-115) mg/dL Random Glucose (60-115) mg/dL Lactic Acid (0.5-2.0) mmol/L Calcium (8.4-10.2) mg/dL Total Bilirubin (0.0-1.0) mg/dL Direct Bilirubin (0.0-0.5) mg/dL AST (5-37) U/L ALT (0-40) U/L Alkaline Phosphatase (39-117) U/L Total Protein (6.5-8.0) g/dL Albumin (3.5-5.0) g/dL Lipase (8-78) U/L Beta-Hydroxybutyrate (0.02-0.27) mmol/L Urine Color Yellow Urine Appearance Clear Urine pH 5.5 (5.0-9.0) Ur Specific [place] >= 1.030 H (1.005-1.025) Urine Protein Negative (Neg-Trace) mg/dL Urine Glucose (UA) >=1000 H (Negative) mg/dL Urine Ketones Negative (Negative) mg/dL Urine Blood Negative (Negative) Urine Nitrite Negative (Negative) Ur Leukocyte Esterase Negative (Negative) Urine RBC 0-2 (0-2) /HPF Urine WBC 0-5 (0-5) /HPF Ur Squamous Epith Cells 0-2 (0-2) /HPF Urine Bacteria None Seen (None Seen) Hyaline Casts 0-2 (0-2) /LPF S. pyogenes GrpA LACY Negative (Negative) ABG Data ABG Results: VBG Independent Interpretation I performed an independent interpretation of an: EKG, Rhythm Strip and Plain X-Ray Interpretation: EKG rate 93 normal sinus rhythm normal intervals no signs of ischemia change from previous interpreted by me Radiology Impression Discussion of test interpretation with radiology: I have reviewed the radiologist's reading. External Record Review External record reviewed: Inpatient record and Office record Chronic Conditions Patient?s care impacted by: Diabetes and Hypertension Social Determinants Patient?s care significantly limited by Social Determinants of Health including: Other Social Determinant of Health Core Measures AMI core measures followed: Yes Critical Care Time Critical Care Time Critical Care Time: Yes Total Critical Care Time: 40 Attestation: Discussion of the elevated blood sugar [facility] in treatment as well as the metformin induced lactic acidosis hospitalist and ICU attending. Who agreed with treatment patient required multiple doses of insulin at the bedside with improvement of blood sugar Discharge Plan Discharge Clinical Impression: Diabetes type 2, uncontrolled, Acute kidney injury, Acute dehydration, Acute hyperglycemia, Blurred vision Patient Disposition: Admitted As Inpatient Prescriptions: No Action metformin 850 mg tablet 850 mg PO BID Qty: 60 0RF (DME) blood-glucose meter Kit See Rx Instructions .Route Qty: 1 0RF Rx Instructions: As directed hydrochlorothiazide 25 mg tablet 25 mg PO DAILY Qty: 14 0RF triamcinolone acetonide 0.05 % ointment 1 appl topical BID PRN (Reason: rash) Qty: 110 0RF metformin 850 mg tablet 850 mg PO BID 30 Days Qty: 60 0RF acetaminophen [Tylenol Extra Strength] 500 mg tablet 500 mg PO Q6H PRN (Reason: fever or pain) Qty: 14 0RF lidocaine [Lidoderm] 5 % adhesive patch,medicated 1 patch topical DAILY MDD remove after 12 hours PRN (Reason: pain) Qty: 30 0RF Rx Instructions: leave on most painful area for up to 12 hrs naproxen 500 mg tablet 500 mg PO BID PRN (Reason: pain) 10 Days Qty: 20 0RF cyclobenzaprine 5 mg tablet 5 mg PO Q8H PRN (Reason: pain (scale score 7-10)) 5 Days Qty: 14 0RF glipizide 10 mg tablet 10 mg PO DAILY Qty: 90 0RF Print Language: Monegasque
[2023-05-23 08:31] LABS: Glucose, Whole Blood > 600 mg/dL (60-115)
[2023-05-23 08:54] LABS: Glucose, Whole Blood > 600 mg/dL (60-115)
[2023-05-23 08:56] LABS: MANUAL DIFF FLAG NO
[2023-05-23 08:59] LABS: Basophils Absolute Auto 0.1 X10*3/uL (0.0-0.2); Basophils Percent Auto 1.2 % (0-2); Eosinophils Absolute Auto 0.3 X10*3/uL (0.0-0.4); Hemoglobin 15.4 g/dl (14.0-18.0); Imm Gran Abs Auto 0.03 X10*3/uL (0.00-0.03); Imm Gran Pct Auto 0.4 % (0.0-0.4); Lymphocytes Absolute Auto 2.1 X10*3/uL (1.2-4.9); Lymphocytes Percent Auto 31.7 % (20-40); Mean Corpuscular HGB Conc 34.2 g/dl (31.0-36.0); Mean Corpuscular Hemoglobin 26.7 pg (27.0-33.0); Mean Platelet Volume 10.1 fL (9.4-12.4); Monocytes Absolute Auto 0.5 X10*3/uL (0.1-1.2); Monocytes Percent Auto 7.4 % (2-11); Neutrophils Absolute Auto 3.7 x10*3/uL (2.0-8.3); Neutrophils Percent Auto 55.3 % (45-73); Platelet Count 316 X10*3/uL (160-400); Red Blood Count 5.77 X10*6/uL (4.60-5.80); Red Cell Distribution Width 13.1 % (11.0-16.0); White Blood Count 6.8 X10*3/uL (4.8-10.8)
[2023-05-23] MEDS: 0.9 % Sodium Chloride 1,000 ML 999 ML IV ×3 (09:02→09:58)
[2023-05-23 09:11] LABS: Beta-Hydroxybutyrate 0.15 mmol/L (0.02-0.27)
[2023-05-23 09:15] LABS: VBG Base Excess -1.3 mmol/L; VBG pCO2 41 mmHg; VBG pH 7.37 (7.32-7.43); VBG pO2 62 mmHg
[2023-05-23 09:15] LABS: Appearance Urine Clear; Color Urine Yellow; Glucose Urine UA >=1000 mg/dL (Negative); Leukocyte Esterase Urine Negative (Negative); Nitrite Urine Negative (Negative); PH 5.5 (5.0-9.0); Specific Gravity - Urine >= 1.030 (1.005-1.025); UMIC TRIGGER UACC YES; Urine Blood Negative (Negative); Urine Ketones Negative (Negative); Urine Protein Negative (Neg-Trace)
[2023-05-23 09:16] LABS: VBG HCO3 23 mmol/L (22-26); Venous Blood Gas Refer to POC result
[2023-05-23 09:20] LABS: Bacteria Urine None Seen (None Seen); Hyaline Casts Urine 0-2 /LPF (0-2); RBC Urine 0-2 /HPF (0-2); Squamous Epithelial Cell Urine 0-2 /HPF (0-2); WBC Urine 0-5 /HPF (0-5)
[2023-05-23 09:25] LABS: Alanine Aminotransferase 12 U/L (0-40); Albumin Level 3.8 g/dL (3.5-5.0); Alkaline Phosphatase 154 U/L (39-117); Anion Gap 14 (12-20); Aspartate Amino Transferase 12 U/L (5-37); Bilirubin Direct 0.2 mg/dL (0.0-0.5); Bilirubin Total 0.6 mg/dL (0.0-1.0); Blood Urea Nitrogen 14 mg/dL (9-16); Calcium 8.9 mg/dL (8.4-10.2); Carbon Dioxide 25 mmol/L (22-29); Chloride 97 mmol/L (96-108); Creatinine Clr Calc Pharmacy 76.1; Estimated Glomerular Filt Rate 43; Glucose Random 795 mg/dL (60-115); Lactic Acid 3.2 mmol/L (0.5-2.0); Lipase 49 U/L (8-78); Potassium 3.9 mmol/L (3.3-5.1); Sodium 132 mmol/L (135-145); Total Protein 7.4 g/dL (6.5-8.0)
[2023-05-23] MEDS: Insulin Lispro 100 UNIT/ML 3 ML VIAL SUBCUT ×5 (09:55→20:58)
[2023-05-23 10:27] LABS: IDNOW Serial# 08D9AD1C; Strep A Nucleic Acid Negative (Negative)
[2023-05-23 10:53] LABS: Reflex Lactate? Lactic Acid Added
--- NOTE | 2023-05-23 11:20 | PC.NURSE ---
20g RAC. 20g LAC, fluids and insulin given as ordered.
[2023-05-23 11:27] LABS: Glucose, Whole Blood 474 mg/dL (60-115)
[2023-05-23 11:27] LABS: Glucose, Whole Blood 427 mg/dL (60-115)
--- NOTE | 2023-05-23 11:34 | PM.IMHP ---
History of Present Illness Date of Service: 05/23/23 Attending physician on admission: Marcos Mayer Chief Complaint: Blurry vision, high blood sugar Pt is a 32-year-old male with a PMH significant for?uncontrolled lbx-vsrkzig-rkpzaaoqz diabetes type 2 who presents to the ED with?blurred vision, polydipsia, polyuria, and recent weight loss for the past few weeks. Patient presented to the ED on 04/18/2023 with similar symptoms and found to have a random glucose of 767. He had not been taking his metformin regularly, which was increased to 1000mg b.i.d. on discharge home. Patient declined admission to the hospital at that time because he was starting a new job. Reports symptoms have persisted since his last visit. Reports has also lost around 20 lb over the past few weeks, and has been feeling more tired than usual. States has been trying to take his metformin regularly. Re-presented to the ED this morning when he woke up and noticed his vision had worsened overnight and was now ?pixilated?. Denies chest pain/pressure, palpitations. No shortness of breath. Denies fever, chills, abdominal pain. In the ED pt had elevated heart rate up to 100, and was hypertensive up to 149/93. Labs were significant for sodium 132, creatinine 1.81, initial POC glucose >600, random glucose 795, lactic acid 3.2. VBG WNL with pH 7.37 and bicarb 23. UA negative for UTI but positive for glucose >= 1000. CXR showed no acute cardiopulmonary finding. EKG demonstrated normal sinus rhythm with T-wave inversions in leads III and aVF. Pt was treated with 3L NS and insulin 12 units and 10 units. Pt will be admitted to the hospital of [facility] acute hyperglycemia in the setting uncontrolled diabetes type 2 likely secondary to medication noncompliance. [facility] Medical History Diabetes type 2, uncontrolled Social History Alcohol intake: current Alcohol intake frequency: holidays/special occasions only Advance Directives: No Meds Allergies Allergy/AdvReac Type Severity Reaction Status Date / Time No Known Allergies Allergy Verified 05/23/23 08:15 Active Medications: Current Medications Glucose (Glucose Gel 15 Gm Gel..Gram.) 15 gm PO Q15M PRN; Protocol PRN Reason: per Hypoglycemia Standing Ord. Dextrose (D10) 250 mls @ 750 mls/hr IV Q15M PRN; Protocol PRN Reason: per Hypoglycemia Standing Ord. Insulin Human Lispro (Insulin Lispro 100 Unit/Ml 3 Ml Vial) [facility]; Protocol Last Admin: 05/23/23 10:54 Dose: 10 unit Home Medications ?Medication ?Instructions ?Recorded ?Confirmed ?Last Taken ?Type ibuprofen 800 mg tablet 800 mg PO Q8H PRN Pain 05/23/23 05/23/23 Unknown History metformin 500 mg tablet,extended 1,000 mg PO DAILY 05/23/23 05/23/23 05/22/23 History release 24 hr Physical Exam Vital Signs and Narrative: Vital Signs: Last Vital Signs Temp 97.7 F 05/23/23 09:24 Pulse 81 05/23/23 09:24 Resp 15 05/23/23 09:24 BP 140/100 H 05/23/23 09:24 Pulse Ox 95 05/23/23 09:24 O2 Del Method Room Air 05/23/23 09:24 BMI result Body Mass Index 31.4 Constitutional: Alert, in no acute distress. Mental Status: Oriented to person, place and time. Eyes: Pupils are equal, round, and reactive to light. Ear, Nose, and Throat: Oropharynx clear, mucous membranes moist. Ears and nose without deformities. Trachea midline. Respiratory: Clear to auscultation bilaterally. No wheezing, rales, or rhonchi. Cardiovascular: S1, S2, tachy. No murmurs, rubs, or gallops. Gastrointestinal: Abdomen soft, non-tender, non-distended. Normal bowel sounds. Neurologic: Cranial nerves II-XII are grossly intact bilaterally. No focal neurological deficits. Moves all extremities spontaneously. Skin: Warm, dry. Extremities: No edema. Psychiatric: Normal mood and affect. Results Labs 05/23/23 08:47 05/23/23 08:47 Labs: Laboratory Results - last 24 hr 05/23/23 05/23/23 05/23/23 08:27 08:45 08:47 MCV 78.0 L MCH 26.7 L MCHC 34.2 RDW 13.1 Plt Count 316 MPV 10.1 Immature Gran % (Auto) 0.4 Neut % (Auto) 55.3 Lymph % (Auto) 31.7 [place] % (Auto) 7.4 Eos % (Auto) 4.0 Baso % (Auto) 1.2 Lymph # (Auto) 2.1 [place] # (Auto) 0.5 Eos # (Auto) 0.3 Baso # (Auto) 0.1 Abs Immat Gran (auto) 0.03 Absolute Neuts (auto) 3.7 Absolute Nucleated RBC 0.000 Nucleated RBC % (auto) 0.0 VBG pH VBG pCO2 VBG pO2 VBG HCO3 VBG O2 Saturation VBG Base Excess Anion Gap 14 Estim Creat Clear Calc 76.1 Estimated GFR 43 POC Glucose > 600 H* > 600 H* Random Glucose 795 H* Lactic Acid 3.2 H* Calcium 8.9 D Total Bilirubin 0.6 Direct Bilirubin 0.2 AST 12 ALT 12 Alkaline Phosphatase 154 H Total Protein 7.4 Albumin 3.8 Lipase 49 Beta-Hydroxybutyrate 0.15 Urine Color Urine Appearance Urine pH Ur Specific [place] Urine Protein Urine Glucose (UA) Urine Ketones Urine Blood Urine Nitrite Ur Leukocyte Esterase Urine RBC Urine WBC Ur Squamous Epith Cells Urine Bacteria Hyaline Casts S. pyogenes GrpA LACY 05/23/23 05/23/23 05/23/23 08:50 09:03 10:12 MCV MCH MCHC RDW Plt Count MPV Immature Gran % (Auto) Neut % (Auto) Lymph % (Auto) [place] % (Auto) Eos % (Auto) Baso % (Auto) Lymph # (Auto) [place] # (Auto) Eos # (Auto) Baso # (Auto) Abs Immat Gran (auto) Absolute Neuts (auto) Absolute Nucleated RBC Nucleated RBC % (auto) VBG pH 7.37 VBG pCO2 41 VBG pO2 62 VBG HCO3 23 VBG O2 Saturation 89.0 VBG Base Excess -1.3 Anion Gap Estim Creat Clear Calc Estimated GFR POC Glucose Random Glucose Lactic Acid Calcium Total Bilirubin Direct Bilirubin AST ALT Alkaline Phosphatase Total Protein Albumin Lipase Beta-Hydroxybutyrate Urine Color Yellow Urine Appearance Clear Urine pH 5.5 Ur Specific [place] >= 1.030 H Urine Protein Negative Urine Glucose (UA) >=1000 H Urine Ketones Negative Urine Blood Negative Urine Nitrite Negative Ur Leukocyte Esterase Negative Urine RBC 0-2 Urine WBC 0-5 Ur Squamous Epith Cells 0-2 Urine Bacteria None Seen Hyaline Casts 0-2 S. pyogenes GrpA LACY Negative 05/23/23 05/23/23 10:30 11:23 MCV MCH MCHC RDW Plt Count MPV Immature Gran % (Auto) Neut % (Auto) Lymph % (Auto) [place] % (Auto) Eos % (Auto) Baso % (Auto) Lymph # (Auto) [place] # (Auto) Eos # (Auto) Baso # (Auto) Abs Immat Gran (auto) Absolute Neuts (auto) Absolute Nucleated RBC Nucleated RBC % (auto) VBG pH VBG pCO2 VBG pO2 VBG HCO3 VBG O2 Saturation VBG Base Excess Anion Gap Estim Creat Clear Calc Estimated GFR POC Glucose 474 H* 427 H* Random Glucose Lactic Acid Calcium Total Bilirubin Direct Bilirubin AST ALT Alkaline Phosphatase Total Protein Albumin Lipase Beta-Hydroxybutyrate Urine Color Urine Appearance Urine pH Ur Specific [place] Urine Protein Urine Glucose (UA) Urine Ketones Urine Blood Urine Nitrite Ur Leukocyte Esterase Urine RBC Urine WBC Ur Squamous Epith Cells Urine Bacteria Hyaline Casts S. pyogenes GrpA LACY Imaging Radiologist's Impressions: Impressions Chest X-Ray 05/23/23 09:34 IMPRESSION: No acute cardiopulmonary findings. Assessment and Plan (1) Blurred vision: Status: Acute (2) Acute hyperglycemia: Status: Acute Plan Pt is a 32-year-old male with a PMH significant for?uncontrolled pyt-yeenoht-cbwvfdgyj diabetes type 2 who presents to the ED with?blurred vision, polydipsia, polyuria, and recent weight loss for the past few weeks. Pt will be admitted to the hospital of [facility] acute hyperglycemia in the setting uncontrolled diabetes type 2 likely secondary to medication noncompliance. Uncontrolled nme-meuzjea-mlyxfjijp diabetes type 2 Patient with polydipsia, polyuria, recent weight loss, blurriness for the past few weeks Likely secondary to medication noncompliance Random glucose 795 at time of presentation VBG reassuring, not acidotic, no DKA Given IVF and insulin 12 units and 10 units in ED Will cover on sliding scale insulin Will start Lantus 10 units daily Diabetic diet Diabetic counseling [facility] Creatinine 1.81 at time of presentation Likely secondary to hyperglycemia and uncontrolled diabetes Patient received 3 L NS in ED Will place on maintenance fluids: NS @125 mls/h Hold metformin Follow BMP Lactic acidosis Lactic acid 3.2 at time of presentation Secondary to hyperglycemia, sepsis Patient received IVF in ED Acute vision changes Pt reporting blurred and pixilated vision In the setting of uncontrolled type 2 diabetes Treat as above Will need outpatient f/u with optometry HTN Blood pressure has remained elevated while in the ED on multiple admissions Will start on amlodipine 2.5 mg daily Full Code Attending:?Dr. Mayer DVT Prophylaxis: Lovenox Pt will require a hospitalization of at least two nights for treatment of [facility] and?hyperglycemia in the setting uncontrolled diabetes type 2 secondary to medication noncompliance. Given that patient has elevated random glucose of nearly 800 and asymptomatic with acute vision changes, patient will require hospitalization for close monitoring of glucose levels and BNP, administration of insulin as necessary, and administration of IVF.. Quality Stroke Does the patient have a stroke diagnosis?: No VTE Prior VTE?: No VTE Risk Level:: Medical - moderate - high VTE Device Contraindication: Treatment Not Indicated VTE Drug Contraindication: N/A - Med Ordered
--- NOTE | 2023-05-23 12:08 | PHA.MEDREC ---
Pharmacy Consult ? Medication Reconciliation Pharmacy has completed the medication reconciliation. Patient reports that they only take Metformin 1000 mg daily. Pharmacy records indicate ER version, however patient does not remember. Patient also reports ibuprofen use PRN.
[2023-05-23 12:52] LABS: ~Lactic Acid-LAB USE ONLY 1.2 mmol/L (0.5-2.0)
[2023-05-23] MEDS: Insulin Glargine,Hum.rec.anlog 100 UNIT/ML 10 ML VIAL 10 UNIT SUBCUT (13:18)
[2023-05-23] MEDS: Enoxaparin Sodium 40 MG/0.4 ML SYRINGE SUBCUT (13:18)
[2023-05-23] MEDS: amLODIPine Besylate 2.5 MG TABLET PO (13:19)
[2023-05-23] MEDS: 0.9 % Sodium Chloride 1,000 ML 125 ML IVCONT ×2 (13:19→21:01)
[2023-05-23 14:02] LABS: Hemoglobin A1c % > 14.0 % (<6.0)
--- NOTE | 2023-05-23 16:38 | PC.NURSE ---
LATE ENTRY: From home, c/o burry vision and blood sugar > 600, hx type 2 diabetes, on Metformin-noncompliant. Hemoglobin A1c above 13. BS in ed >600. 12 units regular insulin given subq. F/U BS 474, 10 units regular insulin given subq. F/U BS 427, 10 units given subq. 3L NS boluses given, Lactic 3.2 f/u lactic 1.2. NS running 125 ml/hr. 20g RAC and 20g LAC. A+O x3.
[2023-05-23 16:44] LABS: Glucose, Whole Blood 282 mg/dL (60-115)
--- NOTE | 2023-05-23 17:34 | PC.NURSE ---
iv access in R-AC removed per pt request, primary RN aware
[2023-05-23 17:52] LABS: Glucose, Whole Blood 440 mg/dL (60-115)
[2023-05-23 20:18] LABS: Glucose, Whole Blood 364 mg/dL (60-115)
[2023-05-23 23:04] LABS: Glucose, Whole Blood 254 mg/dL (60-115)
[2023-05-24 03:22] VITALS: BP 126/85; PULSE 61; RESP 16; TEMP 36.3; O2SAT 97
[2023-05-24] MEDS: Acetaminophen 325 MG TABLET 650 MG PO (05:10)
[2023-05-24] MEDS: 0.9 % Sodium Chloride 1,000 ML 125 ML IVCONT ×3 (06:17→21:34)
[2023-05-24 07:11] VITALS: BP 139/83; PULSE 72; RESP 16; TEMP 36.4; O2SAT 98
[2023-05-24 07:42] LABS: Glucose, Whole Blood 305 mg/dL (60-115)
[2023-05-24] MEDS: amLODIPine Besylate 2.5 MG TABLET PO (08:01)
[2023-05-24] MEDS: Insulin Glargine,Hum.rec.anlog 100 UNIT/ML 10 ML VIAL 10 UNIT SUBCUT (08:02)
[2023-05-24] MEDS: Insulin Lispro 100 UNIT/ML 3 ML VIAL SUBCUT ×4 (08:02→20:18)
[2023-05-24] MEDS: glipiZIDE 5 MG TABLET PO ×2 (08:57→16:47)
[2023-05-24] MEDS: Nystatin Oral Susp 500,000 UNIT/5 ML ORAL.SUSP 500000 UNIT PO ×4 (08:57→20:18)
[2023-05-24] MEDS: Throat Lozenge, Medicated LOZENGE 1 LOZENGE MUCOUS MEM (08:58)
--- NOTE | 2023-05-24 10:30 | MHC.CM.PN ---
pt lives alone has no servies will self arrange transport home dc plan home no services
[2023-05-24 11:05] LABS: Anion Gap 11 (12-20); Blood Urea Nitrogen 13 mg/dL (9-16); Calcium 8.4 mg/dL (8.4-10.2); Carbon Dioxide 27 mmol/L (22-29); Chloride 106 mmol/L (96-108); Creatinine Clr Calc Pharmacy 112.9; Estimated Glomerular Filt Rate > 60; Glucose Random 280 mg/dL (60-115); Potassium 3.7 mmol/L (3.3-5.1); Sodium 140 mmol/L (135-145)
[2023-05-24 11:24] LABS: Glucose, Whole Blood 356 mg/dL (60-115)
--- NOTE | 2023-05-24 12:16 | P.PNIM_ITS ---
Subjective Subjective Date of Service: 05/24/23 Interval History: dm with hyperglycemia Review of Systems has throat discomfort vision seems improved denies any chest pain or sob Physical Exam 2 Vital Signs: Vital Signs: Last Vital Signs Temp 97.5 F 05/24/23 07:11 Pulse 72 05/24/23 07:11 Resp 16 05/24/23 07:11 BP 139/83 05/24/23 07:11 Pulse Ox 98 05/24/23 07:11 O2 Del Method Room Air 05/24/23 07:11 BMI result Body Mass Index 31.4 Appearance: Alert. Oriented X3. No acute distress. throat -mild oral thrush CVS: Normal heart rate and rhythm. Pulses normal. Normal S1 and S2 Respiratory: No respiratory distress. Breath sounds normal. No Wheezing. No rales Abdomen: Soft and nontender. No rigidity. No distention. Skin: Skin warm and dry. Normal skin color. . Extremities: No lower extremity edema. Neuro: Oriented X 3. No motor deficit. Const: Other: Appearance: Alert. Oriented X3. No acute distress. Sinus but easily arousable Eyes: Pupils equal, round and reactive to light. ENT: Pharynx normal. Neck: Normal inspection. Neck supple. No lymph nodes noted. No crepitus CVS: Normal heart rate and rhythm. Pulses normal. Normal S1 and S2 Respiratory: No respiratory distress. Breath sounds normal. No Wheezing. No rales Abdomen: Soft and nontender. No rigidity. No distention. Skin: Skin warm and dry. Normal skin color. Normal skin turgor. Extremities: No lower extremity edema. No Lacerations. No Rash Neuro: Oriented X 3. No motor deficit. No sensory deficit. Moving all extremities. No slurred speech. CN 2 through 12 grossly intact Psych: calm, cooperative, normal affect Objective Data Active Medications Acetaminophen (Acetaminophen 325 Mg Tablet) 650 mg PO Q6H PRN PRN Reason: Pain, Mild (Pain Scale 1-3) Last Admin: 05/24/23 05:10 Dose: 650 mg Documented By: GIOVANNA Benzocaine (Throat Lozenge, Medicated Lozenge) 1 lozenge MUCOUS MEM Q2H PRN PRN Reason: Sore Throat Last Admin: 05/24/23 08:58 Dose: 1 lozenge Documented By: SAHRA Benzonatate (Benzonatate 100 Mg Capsule) 100 mg PO TID PRN PRN Reason: Cough Docusate Sodium (Docusate Sodium 100 Mg Capsule) 100 mg PO DAILY PRN PRN Reason: Constipation Enoxaparin Sodium (Enoxaparin Sodium 40 Mg/0.4 Ml Syringe) 40 mg SUBCUT Q24H FOR[facility], [facility]1983 Last Admin: 05/23/23 13:18 Dose: 40 mg Documented By: DAWIT Glipizide (Glipizide 5 Mg Tablet) 5 mg PO BIDWM FOR[facility]LY [facility], [facility]1983 Last Admin: 05/24/23 08:57 Dose: 5 mg Documented By: SAHRA Glucose (Glucose Gel 15 Gm Gel..Gram.) 15 gm PO Q15M PRN; Protocol PRN Reason: per Hypoglycemia Standing Ord. Dextrose (D10) 250 mls @ 750 mls/hr IV Q15M PRN; Protocol PRN Reason: per Hypoglycemia Standing Ord. Sodium Chloride (Ns) 1,000 mls @ 125 mls/hr IVCONT .Q8H [facility], [facility] Last Admin: 05/24/23 11:59 Dose: Not Given Documented By: SAHRA Non-Admin Reason: IV Running Insulin Glargine (Insulin Glargine,Hum.Rec.Anlog 100 Unit/Ml 10 Ml Vial) 10 unit SUBCUT DAILY [facility], [facility]1983 Insulin Human Lispro (Insulin Lispro 100 Unit/Ml 3 Ml Vial) 0 unit SUBCUT QIDACHS [facility], [facility]; Protocol Last Admin: 05/24/23 11:57 Dose: 15 unit Documented By: SAHRA Melatonin (Melatonin 3 Mg Tablet) 6 mg PO BEDTIME PRN PRN Reason: Insomnia Nystatin (Nystatin Oral Susp 500,000 Unit/5 Ml Oral.Susp) 500,000 unit PO QID [facility], [facility]; Protocol Last Admin: 05/24/23 08:57 Dose: 500,000 unit Documented By: SAHRA Ondansetron HCl (Ondansetron Hcl 4 Mg/2 Ml Vial) 4 mg IVPUSH Q8H PRN PRN Reason: Nausea and Vomiting Sodium Chloride (0.9 % Sodium Chloride Flush 3 Ml Syringe) 3 ml IVFLUSH QSHIFT [facility], [facility] Last Admin: 05/24/23 07:14 Dose: Not Given Documented By: SAHRA Non-Admin Reason: IV Running Labs 05/23/23 08:47 05/24/23 05:02 Labs: Laboratory Results - last 24 hr 05/23/23 05/23/23 05/23/23 08:47 12:32 16:21 Hold Purple Top Anion Gap Estim Creat Clear Calc Estimated GFR POC Glucose 282 H Random Glucose Estimat Average Glucose TNP Hemoglobin A1c % > 14.0 H Lactic Acid F/U @ 2Hr 1.2 Calcium 05/23/23 05/23/23 05/23/23 17:47 19:38 23:00 Hold Purple Top Anion Gap Estim Creat Clear Calc Estimated GFR POC Glucose 440 H* 364 H* 254 H Random Glucose Estimat Average Glucose Hemoglobin A1c % Lactic Acid F/U @ 2Hr Calcium 05/24/23 05/24/23 05/24/23 05:02 07:16 11:09 Hold Purple Top SEE NOTE Anion Gap 11 L Estim Creat Clear Calc 112.9 Estimated GFR > 60 POC Glucose 305 H 356 H* Random Glucose 280 H Estimat Average Glucose Hemoglobin A1c % Lactic Acid F/U @ 2Hr Calcium 8.4 Microbiology Microbiology Results: Microbiology 05/23/23 08:17 Blood Culture - Preliminary Blood - Venous No growth after 24 hours. 05/23/23 08:47 Blood Culture - Preliminary Blood - Venous No growth after 24 hours. Assessment and Plan (1) Acute hyperglycemia: Status: Acute (2) Acute dehydration: Status: Acute (3) Acute kidney injury: Status: Acute Plan 32-year-old male with a PMH significant for?uncontrolled oje-afzbqzj-xrxbibyyc diabetes type 2 who presents to the ED with?blurred vision, polydipsia, polyuria, and recent weight loss for the past few weeks. Pt will be admitted to the [facility] acute hyperglycemia in the setting uncontrolled diabetes type 2 likely secondary to medication noncompliance. fep-odylnem-jqjiungqd diabetes type 2 with hyperglycemia Patient with polydipsia, polyuria, vision improved fs also improving Hbac1 is >14 Diabetic diet,Diabetic counseling,added lantus ,glipizide,fs with coverage . [facility] Creatinine 1.81 at time of presentation,improving to 1.22 Likely secondary to hyperglycemia and uncontrolled diabetes continue NS @125 mls/h Hold metformin Follow BMP acute Lactic acidosis Lactic acid 3.2 at time of presentation Secondary to hyperglycemia, sepsis improved with hydration. Acute vision changes seems improved Will need outpatient f/u with optometry possible elavated BP: moniter closely bp ,if elevated bp consistently above 140's ,consider adding amlodipine. Full Code DVT Prophylaxis: Lovenox ongoing need for hospitalization for 48-72 hrs -treatment of [facility] and?hyperglycemia in the setting uncontrolled diabetes type 2 secondary to medication noncompliance. monitoring of glucose levels and renal function and electrolytes monitering, administration of insulin as necessary, and administration of IVF as well as adjustment of insulin dosing according to hyperglycemia to clearify a stable dm regimen for dispo. Quality Stroke Does the patient have a stroke diagnosis?: No VTE Prior VTE?: No VTE Risk Level:: Medical - moderate - high VTE Device Contraindication: Treatment Not Indicated VTE Drug Contraindication: N/A - Med Ordered
[2023-05-24] MEDS: Enoxaparin Sodium 40 MG/0.4 ML SYRINGE SUBCUT (14:03)
[2023-05-24 15:18] VITALS: BP 138/77; PULSE 71; RESP 18; TEMP 36.3; O2SAT 99
[2023-05-24 16:15] LABS: Glucose, Whole Blood 336 mg/dL (60-115)
[2023-05-24 19:07] VITALS: BP 140/70; PULSE 76; RESP 18; TEMP 36.8; O2SAT 100
[2023-05-24 20:23] LABS: Glucose, Whole Blood 288 mg/dL (60-115)
[2023-05-25 03:11] VITALS: BP 138/76; PULSE 82; RESP 18; TEMP 36.9; O2SAT 98
[2023-05-25] MEDS: 0.9 % Sodium Chloride 1,000 ML 125 ML IVCONT (05:05)
[2023-05-25 06:22] LABS: Anion Gap 12 (12-20); Blood Urea Nitrogen 10 mg/dL (9-16); Calcium 8.1 mg/dL (8.4-10.2); Carbon Dioxide 24 mmol/L (22-29); Chloride 106 mmol/L (96-108); Creatinine Clr Calc Pharmacy 125.3; Estimated Glomerular Filt Rate > 60; Glucose Random 326 mg/dL (60-115); Potassium 3.6 mmol/L (3.3-5.1); Sodium 138 mmol/L (135-145)
[2023-05-25 07:55] VITALS: BP 138/92; PULSE 81; RESP 18; TEMP 37; O2SAT 98
[2023-05-25 08:04] LABS: Glucose, Whole Blood 282 mg/dL (60-115)
[2023-05-25] MEDS: Insulin Glargine,Hum.rec.anlog 100 UNIT/ML 10 ML VIAL 10 UNIT SUBCUT (08:14)
[2023-05-25] MEDS: Insulin Lispro 100 UNIT/ML 3 ML VIAL SUBCUT ×2 (08:15→11:55)
[2023-05-25] MEDS: Nystatin Oral Susp 500,000 UNIT/5 ML ORAL.SUSP 500000 UNIT PO (08:16)
[2023-05-25] MEDS: glipiZIDE 5 MG TABLET PO (08:16)
--- NOTE | 2023-05-25 10:16 | MHC.CLN ---
NUTRITION CONSULT FOR WEIGHT LOSS. REVIEW OF WEIGHT HX SHOWS -6.3% WEIGHT LOSS X ONE MONTH; -2.3% X 11 MONTHS. DIET=DIABETIC 2200 KCALS-APPROPRIATE. EATING WELL, WITH MOST MEALS 100%. SUSPECT WEIGHT LOSS DUE TO POORLY CONTROLLED DM. HX OF NON COMPLIANCE WITH MEDS. A1C>14 ON 05/23/23. CONTINUE CURRENT DIET. NO ADDITIONAL NUTRITION RECOMMENDATIONS AT THIS TIME.
--- NOTE | 2023-05-25 11:05 | P.DS_ITS ---
DS: Providers Provider Date of Service: 05/25/23 Date of admission: 05/23/23 12:44 Date of discharge: 05/25/23 Primary care physician: Prasanna Reynoso MD Attending physician on discharge: Marcos Mayer Discharging clinician: Marcos Mayer DS: Diagnosis Discharge Diagnosis (1) Acute hyperglycemia: Status: Acute (2) Acute dehydration: Status: Acute (3) Acute kidney injury: Status: Acute DS: Summary Hospital Course Hospital Course: 32-year-old male with a PMH significant for?uncontrolled uog-mzpoevn-mdffxcbdu diabetes type 2 who presents to the ED with?blurred vision, polydipsia, polyuria, and recent weight loss for the past few weeks. Patient presented to the ED on 04/18/2023 with similar symptoms and found to have a random glucose of 767. He had not been taking his metformin regularly, which was increased to 1000mg b.i.d. on discharge home. Patient declined admission to the hospital at that time because he was starting a new job. Reports symptoms have persisted since his last visit. Reports has also lost around 20 lb over the past few weeks, and has been feeling more tired than usual. States has been trying to take his metformin regularly. Re-presented to the ED this morning when he woke up and noticed his vision had worsened overnight and was now ?pixilated?. Denies chest pain/pressure, palpitations. No shortness of breath. Denies fever, chills, abdominal pain. In the ED pt had elevated heart rate up to 100, and was hypertensive up to 149/93. Labs were significant for sodium 132, creatinine 1.81, initial POC glucose >600, random glucose 795, lactic acid 3.2. VBG WNL with pH 7.37 and bicarb 23. UA negative for UTI but positive for glucose >= 1000. CXR showed no acute cardiopulmonary finding. EKG demonstrated normal sinus rhythm with T-wave inversions in leads III and aVF. Pt was treated with 3L NS and insulin 12 units and 10 units. Pt will be admitted to the hospital [facility] acute hyperglycemia in the setting uncontrolled diabetes type 2 likely secondary to medication noncompliance. Hospital course: Patient dm with hyperglycemia -came with fs of 600 and aristeo,hyponatremia : started on insulin and iv hydration -seems aristeo and hyponatremia improved ,Hba1c levels >14 ,fs also 200-300 's range: added lantus 10 units daily and glipizide 5 mg po bid ,continue home metformin. symptoms including polyuria polydipsia, blurred vision seems to be improved. patient strongly advised complance with dm medications and dm education given. consider outpatient endocrinology follow up and follow up bmp outpatient . elevated bp reading intiattly -which seems to be improving ,moniter bp outaptient ,if consistently elevated above 140 mmhg -consider outpatient workup and antihypertensive with pcp. further management as per pcp outpatient. plan: continue lantus 10 units q daily,glipizide 5 mg po bid,insulin sliding also scale added. oral thursh -complete nystatin swish and swallow qid for 6 more days. elevated bp reading intiattly -which seems to be improving ,moniter bp outaptient ,if consistently elevated above 140 mmhg -consider outpatient workup and antihypertensive with pcp. Above management discussed with the patient in detail length , he understand and in agreement with the plan, time spent 40 minute. Time Attestation Total time managing care of this patient today: 40 mintues. Discharge Coordination Time (in mins): 40 min Quality: Safe Use of Opioids Does Pt have an Active Cancer Diagnosis on the Problem List?: No Quality: Stroke Does the patient have a stroke diagnosis?: No Physical Exam Vital Signs: Vital Signs: Last Vital Signs Temp 98.6 F 05/25/23 07:55 Pulse 81 05/25/23 07:55 Resp 18 05/25/23 07:55 BP 138/92 H 05/25/23 07:55 Pulse Ox 98 05/25/23 07:55 O2 Del Method Room Air 05/25/23 07:55 BMI result Body Mass Index 31.4 Appearance: Alert. Oriented X3. No acute distress. throat -mild oral thrush -improving CVS: Normal heart rate and rhythm. Pulses normal. Normal S1 and S2 Respiratory: No respiratory distress. Breath sounds normal. No Wheezing. No rales Abdomen: Soft and nontender. No rigidity. No distention. Skin: Skin warm and dry. Normal skin color. . Extremities: No lower extremity edema. Neuro: Oriented X 3. No motor deficit. DS: Data Data Completed and Pending Labs on day of discharge: Laboratory Results - last 24 hr 05/24/23 05/24/23 05/24/23 05:02 11:09 16:02 Hold Purple Top Sodium 140 Potassium 3.7 Chloride 106 Carbon Dioxide 27 Anion Gap 11 L BUN 13 Creatinine 1.22 Estim Creat Clear Calc 112.9 Estimated GFR > 60 POC Glucose 356 H* 336 H Random Glucose 280 H Calcium 8.4 05/24/23 05/25/23 05/25/23 20:08 05:05 07:58 Hold Purple Top SEE NOTE Sodium 138 Potassium 3.6 Chloride 106 Carbon Dioxide 24 Anion Gap 12 BUN 10 Creatinine 1.10 Estim Creat Clear Calc 125.3 Estimated GFR > 60 POC Glucose 288 H 282 H Random Glucose 326 H Calcium 8.1 L Preliminary micro results at discharge 05/23/23 08:47 Blood Culture - Preliminary Blood - Venous No growth after 48 hours. 05/24/23 09:03 Throat Culture - Preliminary Throat No Group A Beta-hemolytic Streptococci isolated to date. 05/23/23 08:17 Blood Culture - Preliminary Blood - Venous No growth after 24 hours. Imaging Chest x-ray: Radiologist's impression: ITS Impressions Chest X-Ray 05/23/23 09:34 IMPRESSION: No acute cardiopulmonary findings. Discharge Plan Discharge Anticipated Discharge Date/Time: 05/25/23 10:38 Patient Disposition: Home, Self-Care Discharge Diagnosis: dm with hyperglycemia,[facility] ,elevated blood pressure reading Referrals: Prasanna Reynoso MD [Primary Care Provider] - 1 Week Discharge Medications: New nystatin 100,000 unit/mL Suspension 500,000 unit PO QID Qty: 100 0RF Rx Instructions: nystatin oral switch and swallow [id number] units qid -end date 05/30/23 glipizide 5 mg Tablet 5 mg PO BIDWM Qty: 120 0RF (DME) FreeStyle Lite Strips Strip Qty: 100 0RF Rx Instructions: Test four times a day or as directed. (DME) blood-glucose meter [FreeStyle Lite Meter] Kit Qty: 1 0RF Rx Instructions: As Directed alcohol swabs Pads, Medicated 1 pad TOPICAL QIDACHS Qty: 100 0RF Rx Instructions: Use four times a day or as directed. insulin glargine [Lantus Solostar U-100 Insulin] 100 unit/mL (3 mL) insulin pen 10 unit SUBCUT DAILY Qty: 15 0RF (DME) pen needle, diabetic 32 gauge x 1/4 needle Qty: 100 0RF Rx Instructions: Use four times a day or as directed. (DME) lancets [FreeStyle Lancets] 28 gauge misc Qty: 100 0RF Rx Instructions: Test four times a day or as directed. (DME) blood pressure monitor [Blood Pressure Kit] Kit See Rx Instructions .Route Qty: 1 0RF Rx Instructions: As directed insulin lispro [Humalog KwikPen Insulin] 100 unit/mL insulin pen 0 sliding scale dose SUBCUT QIDACHS Qty: 15 0RF Rx Instructions: Blood Sugar: <150 - 0 units 151-200 - 2 units 201-250 - 4 units 251-300 - 6 units 301-350 - 8 units >350 - 10 units Continued metformin 500 mg tablet extended release 24 hr 1,000 mg PO DAILY Discontinued ibuprofen 800 mg tablet 800 mg PO Q8H PRN (Reason: Pain) No Action (DME) blood-glucose meter Kit See Rx Instructions .Route Qty: 1 0RF Rx Instructions: As directed Discharge Orders: Discharge Order (Routine); Ordered 05/25/23 Ordered By: Marcos Maeyr Diet: Advance to usual diet Activity on Discharge: As tolerated Stand Alone Forms: Patient Portal Discharge page Print Language: Serbian Care Plan Goals: dm with hyperglycemia -came with fs of 600 and [facility],hyponatremia : started on insulin and iv hydration -seems aristeo and hyponatremia improved ,Hba1c levels >14 ,fs also 200-300 's range: added lantus 10 units daily and glipizide 5 mg po bid ,continue home metformin. symptoms including polyuria polydipsia, blurred vision seems to be improved. patient strongly advised complance with dm medications and dm education given. consider outpatient endocrinology follow up and follow up bmp outpatient . elevated bp reading intiattly -which seems to be improving ,moniter bp outaptient ,if consistently elevated above 140 mmhg -consider outpatient workup and antihypertensive with pcp. further management as per pcp outpatient. Health Concerns: continue lantus 10 units q daily,glipizide 5 mg po bid,insulin sliding also scale added. oral thursh -complete nystatin swish and swallow qid for 6 more days. elevated bp reading intiattly -which seems to be improving ,moniter bp outaptient ,if consistently elevated above 140 mmhg -consider outpatient workup and antihypertensive with pcp. Plan of Treatment: as above. Assessment: as above.
--- NOTE | 2023-05-25 11:16 | MHC.CM.PN ---
PT WILL DC HOME TODAY WITH NO SERVICES VIA PRIVATE TRANSPORT
[2023-05-25 11:46] LABS: Glucose, Whole Blood 352 mg/dL (60-115)
[2023-05-25] MEDS: metFORMIN HCl 1,000 MG TABLET 1000 MG PO (11:55)
== END 2023-05-25 13:34 | disposition home or self-care (01) | DRG 420 ==
LOC: HO.ED 10:51 → HO.EDOVER 12:53 → HO.S3 15:49
PROVIDERS: Admitting Provider Student in an Organized Health Care Education/Training Program; Emergency Provider Student in an Organized Health Care Education/Training Program; PCP Internal Medicine; Visit Provider Internal Medicine
DX: E11.65 Type 2 diabetes mellitus with hyperglycemia (principal); N17.9 Acute kidney failure, unspecified; E86.0 Dehydration; Z79.84 Long term (current) use of oral hypoglycemic drugs
CPT/HCPCS: 36415; 71046; 80048; 80076; 81001; 82010; 82803; 82947; 83036; 83605; 83690; 85025; 87040; 87070; 87651; 93005; 99221; 99285; J1650

== ENCOUNTER → 2023-05-23 08:17 | Outpatient (BNV) | payer OTHER, SELFPAY | PROVIDERS: Emergency Provider Student in an Organized Health Care Education/Training Program; PCP Internal Medicine; Visit Provider Internal Medicine Cardiovascular Disease | DX: R42 Dizziness and giddiness (principal) | CPT/HCPCS: 93010 ==

== ENCOUNTER → 2023-05-23 12:44 | Outpatient (BNV) | payer OTHER, SELFPAY | PROVIDERS: Admitting Provider Student in an Organized Health Care Education/Training Program; Emergency Provider Student in an Organized Health Care Education/Training Program; PCP Internal Medicine; Visit Provider Student in an Organized Health Care Education/Training Program | DX: R73.9 Hyperglycemia, unspecified (principal); E86.0 Dehydration; N17.9 Acute kidney failure, unspecified | CPT/HCPCS: 99223; 99232; 99239 ==

== ENCOUNTER 2024-11-18 16:12 | Emergency (ER) | payer OTHER, SELFPAY ==
--- OUTSIDE RECORDS SUMMARY | 2024-11-15 13:00 | XMS_ITS | Encounter Summary ---
Author Organization [facility] Address [address] [place] [address] Care Team Providers Care Senior Sustainability Consultant Name Role Phone Prasanna Reynoso MD Primary Care Provider Reason for Visit * Reason Comments Follow-up Medication review. Encounter Details Date Type Department Care Team ([facility] st Contact Info) Description 11/15/2024 1:00 PM EDT Office Visit Adult Medicine [facility] [address], [place] [phone] Aby Angelo PA [address], [place] Type 2 diabetes mellitus with hyperglycemia, with long-term current use of insulin (CMS/HCC V24, CMS/HCC V28) (Primary Dx); Type 2 diabetes mellitus with obesity (CMS/HCC V24, CMS/HCC V28); Primary hypertension; Neuropathy Social History Tobacco Use Types Packs/Day Years Used Date Smoking Tobacco: Never Smokeless Tobacco: Never Tobacco Cessation:Counseling Given: Not Answered Alcohol Use Standard Drinks/Week Comments No 0 (1 standard drink = 0.6 oz pur e alcohol) Housing Instability Answer Date Recorde d Are you worried that in the next 2 months you may not have stable housing? No 11/15/2024 Food Access & Nutrition Answer Date Rec orded Do you have access to a vari ety of food including fruits and vegetables? Yes 11/15/2024 Access to Healthcare Answer Date Record ed Within the last 3 months, ho w many times did you visit the emergency department for your medical care? 0 11/15/2024 Health Literacy Answer Date Recorded How often do you need to hav e someone help you when you read instructions, pamphlets, or other written material from your doctor or pharmacy? Never 11/15/2024 Caregiver: How often do you need to have someone help you when you read instructions, pamphlets, or other written material from your doctor or pharmacy? Not on file 11/15/2024 Financial Risk Answer Date Recorded How hard is it for you to pa y for the very basics like food, housing, medical care, and air conditioning / heating? Not very hard 11/15/2024 Transportation Answer Date Recorded Has the lack of transportati on kept you from meetings, work, or from getting things needed for daily living? No Has the lack of transportati on kept you from medical appointments or from getting medications? No 11/15/2024 Social Isolation Answer Date Recorded How often do you feel lonely or isolated from th ose around you? Never 11/15/2024 Food Risk Answer Date Recorded Within the past 12 months we worried whether our food would run out before we got money to buy more. Never true 11/15/2024 Within the past 12 months th e food we bought just didn't last and we didn't have money to get more. Never true 11/15/2024 Dependent Care Answer Date Recorded Do you need help finding or paying for care for your loved ones. For example, child nutrition assistant or elderly care for an older adult? No 11/15/2024 Education Answer Date Recorded Do you think completing more education or training, like finishing a GED, going to college, or learning a trade, would be helpful for you? No 11/15/2024 Employment and Income Answer Date Recor ded During the last four weeks, have you been actively looking for work? No 11/15/2024 Living Situation Answer Date Recorded What is your living situation? Unrecognized valu e 11/15/2024 Sex and Gender Information Value Date Recorded Sex Assigned at Not on file Legal Sex Male 11:34 PM EST Gender Identity Not on file Sexual Orientation Not on file documented as of this encounter Last Filed Vital Signs Vital Sign Reading Time Taken Comments Blood Pressure 138/88 11/15/2024 1:39 PM EDT Pulse 100 11/15/2024 1:39 PM EDT Temperature 36.1 C (96.9 F) 11/15/2024 1:11 PM EDT Respiratory Rate 17 11/15/2024 1:11 PM EDT Oxygen Saturation 97% 11/15/2024 1:11 PM EDT Inhaled Oxygen Concentration - - Weight 106 kg (232 lb 12.8 oz) 11/15/2024 1:11 P M EDT Height 185.4 cm (6' 1 ) 11/15/2024 1:11 PM EDT Body Mass Index 30.71 11/15/2024 1:11 PM EDT documented in this encounter Ordered Prescriptions Prescription Sig Dispense Quantity Refills Last Filled Start Date End Date lisinopriL (PRINIVIL,ZESTRIL) 10 mg tabletIndications: Type 2 diabetes mellitus with hyperglycemia, with long-term current use of insulin ([facility] V24, [facility] V28) Take 1 tablet (10 mg total) by mouth 1 (one) time each day. 90 each 1 11/15/2024 insulin lispro (HumaLOG KwikPen) 100 unit/mL injection pen INJECT INTO THE SKIN DAILY UP TO 3 TIMES A DAY BASED ON BLOOD SUGAR <150: 0 UNITS, 151-200: 2 UNITS, 201-250: 4 UNITS, 251-300: 6 UNITS, 301-350: 8 UNITS, >350: 10 UNITS (MAX DAILY DOSE 30 U) 15 mL 1 11/15/2024 blood-glucose sensor (FreeStyle Vaughn 3 Sensor) device 1 Applicator by Does not apply route every 14 days. 6 each 1 11/15/2024 5 Lantus Solostar U-100 Insulin 100 unit/mL (3 mL) injection pen Inject 15 Units under the skin at bedtime. 15 mL 1 11/15/2024 5 dulaglutide (Trulicity) 0.75 mg/0.5 mL pen injector injection Inject 0.5 mL (0.75 mg total) under the skin 1 (one) time per week. 2 mL 5 11/15/2024 5 rosuvastatin (CRESTOR) 5 mg tablet Take 1 tablet (5 mg total) by mouth 1 (one) time each day. 90 tablet 1 11/15/2024 5 documented in this encounter Progress Notes * Lanie Ricardo MA - 11/15/2024 1:00 PM EDT Social Influencers of Health Who provided answers?: Self Within the past 12 months we worried whether our food would run out before we got money to buy more.: Never true Within the past 12 months the food we bought just didn't last and we didn't have money to get more.: Never true How hard is it for you to pay for the very basics like food, housing, medical care, and air conditioning / heating?: Not very hard Are you worried that in the next 2 months you may not have stable housing?: No Do you have access to a variety of food including fruits and vegetables?: Yes Within the last 3 months, how many times did you visit the emergency department for your medical care?: 0 Has the lack of transportation kept you from meetings, work, or from getting things needed for daily living?: No Has the lack of transportation kept you from medical appointments or from getting medications?: No How often do you feel lonely or isolated from those around you?: Never How often do you need to have someone help you when you read instructions, pamphlets, or other written material from your doctor or pharmacy?: Never * CINDY Fortune - 11/15/2024 1:00 PM EDT CHIEF COMPLAINT: Follow-up (Medication review. ) IDENTIFIER: Ciro Henriquez is a 33 y.o. old male. HPI: Patient is a 33-year-old male who presents to the office today for a medication review. He has not been in the office since 08/2023, last saw endocrinology 10/2023. He has type 2 diabetes with obesity,hypertension, hyperlipidemia. He ran out of Pantrye sensor and is asking for refill. He has been doing fingersticks. Fasting blood sugar in the morning is around 230s. He checks the blood sugar after work before dinner and its usually in the 300s. He does mealtime insulin but does not check his sugars at every meal. He stopped glipizide, felt that it contributed to his biceps tendon tear. Will request eye exam from [facility]. Will do foot exam today. He declines flu shot. ROS: GENERAL: No malaise, significant weight loss or fever HEENT: No changes in vision RESPIRATORY: No cough, wheezing or shortness of breath CARDIOVASCULAR: No chest pain, leg swelling or palpitations GI: No abdominal discomfort, blood in stools or black stools : No dysuria, frequency or incontinence ENDO: No hypoglycemic episodes NEURO: No persistent headache PAST MEDICAL HISTORY: Patient Active Problem List Diagnosis Date Noted Acne keloidalis nuchae 09/01/2023 Hypertension 08/31/2023 Type 2 diabetes mellitus with obesity ([facility] [employer] V24, [employer] [employer] V28) 08/31/2023 Bunion 04/02/2022 Diabetes mellitus ([facility] [employer] V24, [facility] [employer] V28) 03/28/2022 Type 2 diabetes mellitus with hyperglycemia, without long-term current use of insulin ([facility] [facility] [employer] V24,[facility] [employer] V28) 03/28/2022 Surgical History[1] SOCIAL HISTORY: Social History Tobacco Use Smoking status: Never Smokeless tobacco: Never Substance Use Topics Alcohol use: No FAMILY HISTORY: Family History[2] MEDICATIONS DISCONTINUED/REORDERED: Medications Discontinued During This Encounter Medication Reason sulfamethoxazole-trimethoprim (BACTRIM DS,SEPTRA DS) 800-160 mg per tablet Therapy completed dulaglutide (Trulicity) 0.75 mg/0.5 mL pen injector injection Duplicate order glipiZIDE (GLUCOTROL) 5 mg tablet Therapy completed Lantus Solostar U-100 Insulin 100 unit/mL (3 mL) injection pen Reorder dulaglutide (Trulicity) 0.75 mg/0.5 mL pen injector injection Reorder blood-glucose sensor (FREESTYLE VAUGHN 3 SENSOR [facility]) Reorder rosuvastatin (CRESTOR) 5 mg tablet Reorder insulin lispro (HumaLOG KwikPen) 100 unit/mL injection pen Reorder lisinopriL (PRINIVIL,ZESTRIL) 10 mg tablet Reorder ACTIVE MEDICATIONS: Medications Taking[3] ALLERGIES: Allergies[4] PHYSICAL EXAM: Blood pressure 138/88, pulse 100, temperature 36.1 ??C (96.9 ??F), temperature source Temporal, resp. rate 17, height 1.854 m (73 ), weight 106 kg (232 lb 12.8 oz), SpO2 97%. Body mass index is 30.71kg/m??. BMI is greater than 25.0 (above the normal range) - see Plan APPEARANCE: Alert and in no acute distress HEART: RRR with normal S1 and S2, no murmurs, no gallops LUNG: Clear to auscultation EXTREMITIES: Extremities warm and well perfused without clubbing, cyanosis, or edema. Sensory exam of the foot is abnormal, tested with the monofilament. 2+ dorsalis pedis pulses, no lesions or ulcers. NEURO: Awake, alert and oriented x 3 LABS: Ordered IMAGING: None IMPRESSION/PLAN: 1. Type 2 diabetes mellitus with hyperglycemia, with long-term current use of insulin ([facility] V24,[facility] V28) lisinopriL (PRINIVIL,ZESTRIL) 10 mg tablet Comprehensive metabolic panel Hemoglobin A1c Lipid panel with reflex to direct LDL Microalbumin creatinine urine ratio 2. Type 2 diabetes mellitus with obesity ([facility] V24, [facility] V28) 3. Primary hypertension 4. Neuropathy Vitamin B12 Vitamin D 25 hydroxy Medication and lab orders: Orders Placed This Encounter Procedures Comprehensive metabolic panel Hemoglobin A1c Lipid panel with reflex to direct LDL Microalbumin creatinine urine ratio Vitamin B12 Vitamin D 25 hydroxy Other orders: None Type 2 diabetes with obesity, hyperglycemia. He has not been in the office in over a year. Will need to update labs and have close follow-up to adjust DM meds. I refilled all of the medications today. Refilled freestyle vaughn 3 sensor. Will request eye exam. Foot exam done today. Blood pressure was initially elevated but improved on recheck. Will check again in 2 weeks. Continue on statin medication. He does have decreased sensation in both feet. He describes it as tingling sensation. Will order vitamin B12 and vitamin D labs. Discussed likely neuropathy from diabetes. I have applied the code G2211 to this patient???s visit as the primary care provider dealing with (see above issues) leading to the extensive work up, and management associated with the medical care of this patient. This patient???s serious conditions and complex medical conditions also required several consultants needing management and coordination through my office. I have reviewed all information as it pertains to the management of this patient for final approval. Advised the patient to call me if any problems. Patient understands the plan. Patient is in agreement with the plan. Today's documentation was made using voice recognition software.This note may contain grammatical errors secondary to this software. Aby Angelo PA-C [1] Past Surgical History: Procedure Laterality Date OTHER SURGICAL HISTORY PROCEDURE: DENIES PREVIOUS SURGERY [2] Family History Problem Relation Name Age of Onset Allergies Maternal Grandmother Asthma Maternal Grandmother [3] Outpatient Medications Marked as Taking for the 11/15/24 encounter (Office Visit) with CINDY Fortune Medication Sig Dispense Refill betamethasone, augmented, (DIPROLENE) 0.05 % lotion APPLY TOPICALLY TO SCALP EVERY EVENING. blood glucose control high,low (FreeStyle Control) solution Check Blood sugar daily. E11.65 blood sugar diagnostic (FreeStyle Lite Strips) test strip CHECK BLOOD SUGAR ONCE DAILY 100 strip 1 blood-glucose sensor (FreeStyle Vaughn 3 Sensor) device 1 Applicator by Does not apply route every 14 days. 6 each 1 dulaglutide (Trulicity) 0.75 mg/0.5 mL pen injector injection Inject 0.5 mL (0.75 mg total) under the skin 1 (one) time per week. 2 mL 5 FREESTYLE LANCETS MISC Check Blood sugar daily. E11.65 FreeStyle Lite Meter monitoring kit CHECK BLOOD SUGAR DAILY. 1 kit 0 ibuprofen (ADVIL,MOTRIN) 800 mg tablet Take 1 tablet (800 mg total) by mouth every 8 (eight) hours if needed. insulin lispro (HumaLOG KwikPen) 100 unit/mL injection pen INJECT INTO THE SKIN DAILY UP TO 3 TIMESA DAY BASED ON BLOOD SUGAR <150: 0 UNITS, 151-200: 2 UNITS, 201-250: 4 UNITS, 251-300: 6 UNITS, 301-350: 8 UNITS, >350: 10 UNITS (MAX DAILY DOSE 30 U) 15 mL 1 Lantus Solostar U-100 Insulin 100 unit/mL (3 mL) injection pen Inject 15 Units under the skin at bedtime. 15 mL 1 lisinopriL (PRINIVIL,ZESTRIL) 10 mg tablet Take 1 tablet (10 mg total) by mouth 1 (one) time each day. 90 each 1 metFORMIN XR (GLUCOPHAGE-XR) 500 mg 24 hr tablet Take 2 tablets (1,000 mg total) by mouth 2 (two) times a day with meals. 360 tablet 1 naproxen (NAPROSYN) 500 mg tablet Take 1 tablet (500 mg total) by mouth 2 (two) times a day with meals. pen needle, diabetic 32 gauge x 5/32 needle Use four times a day as directed to inject insulin rosuvastatin (CRESTOR) 5 mg tablet Take 1 tablet (5 mg total) by mouth 1 (one) time each day. 90 tablet 1 [DISCONTINUED] blood-glucose sensor (FREESTYLE VAUGHN 3 SENSOR MISC) 1 Applicator by Does not apply route every 14 days. [DISCONTINUED] dulaglutide (Trulicity) 0.75 mg/0.5 mL pen injector injection Inject 0.75 mg into the skin once a week. [DISCONTINUED] dulaglutide (Trulicity) 0.75 mg/0.5 mL pen injector injection INJECT 0.75 MG SUBCUTANEOUSLY ONCE WEEKLY. 2 mL 1 [DISCONTINUED] glipiZIDE (GLUCOTROL) 5 mg tablet TAKE 2 TABLETS BY MOUTH 2 TIMES A DAY. 30 tablet 0 [DISCONTINUED] insulin lispro (HumaLOG KwikPen) 100 unit/mL injection pen INJECT INTO THE SKIN DAILY UP TO 3 TIMES A DAY BASED ON BLOOD SUGAR <150: 0 UNITS, 151-200: 2 UNITS, 201-250: 4 UNITS, 251-300: 6 UNITS, 301-350: 8 UNITS, >350: 10 UNITS (MAX DAILY DOSE 30 U) 15 mL 0 [DISCONTINUED] Lantus Solostar U-100 Insulin 100 unit/mL (3 mL) injection pen Inject 15 Units underthe skin 1 (one) time each day. [DISCONTINUED] lisinopriL (PRINIVIL,ZESTRIL) 10 mg tablet Take 1 tablet (10 mg total) by mouth 1 (one) time each day. 30 each 0 [DISCONTINUED] rosuvastatin (CRESTOR) 5 mg tablet Take 1 tablet (5 mg total) by mouth 1 (one) time each day. 30 tablet 0 [DISCONTINUED] sulfamethoxazole-trimethoprim (BACTRIM DS,SEPTRA DS) 800-160 mg per tablet Take 1 tablet by mouth 2 (two) times a day. for 10 days [4] No Known Allergies * Kasia Colmenares RN - 11/15/2024 1:00 PM EDT Spoke with provider , pt.'s blood glucose is in 600, she attempted to call pt. With no reach. I called listed number , no answer left a message to call the office [place]. Called [place] police and requested a well visit for this pt. documented in this encounter Plan of Treatment Upcoming Encounters Date Type Department Care Team (Late st Contact Info) Description 12/06/2024 10:30 AM EDT Office Visit Adult Medicine [facility] [address], [place] [phone] Prasanna Reynoso MD [address] [place], [place] documented as of this encounter Results * (ABNORMAL) Vitamin D 25 hydroxy (11/16/2024 4:00 PM EDT) Pathologist [facility] Vit D, 25-Hydroxy 6.6(L) 30.0 - 80.0 ng/mL LAB CHEMISTRY METHOD 11/16/2024 7:33 PM EDT [facility] Blood Venous blood specimen / Unknown Venipuncture / Unknown 11/16/2024 4:00 PM EDT 11/16/2024 4:00 PM EDT us Aby Petey PA LAB BLOOD ORDERABLES Final Resul t [facility] [address] [place] [address], * Vitamin B12 (11/16/2024 4:00 PM EDT) Pathologist [facility] Vitamin B-12 892 250 - 900 pcg/mL LAB CHEMISTRY METHOD 11/16/2024 7:33 PM EDT [facility] Blood Venous blood specimen / Unknown Venipuncture / Unknown 11/16/2024 4:00 PM EDT 11/16/2024 4:00 PM EDT us Aby WHITE LAB BLOOD ORDERABLES Final Resul t Performing Organization Address City/[facility]/ZIP Co de Phone Number [facility] [address] [place] [address], [place] [phone] * Microalbumin creatinine urine ratio (11/16/2024 4:00 PM EDT) Creatinine, Urine 36.0 mg/dL LAB CHEMISTRY METHOD 11/16/2024 7:21 PM EDT [facility] Microalb, Ur 9.3 0.0 - 29.0 mg/L LAB CHEMISTRY METHOD 11/16/2024 7:21 PM EDT [facility] Microalb/Creat Ratio 26 <30 mg/g creat LAB CHEMISTRY METHOD 11/16/2024 7:21 PM EDT [facility] Urine Urine specimen obtained by clean catch procedure / Unknown Non-blood Collection / Unknown 11/16/2024 4:00 PM EDT 11/16/2024 4:00 PM EDT us Aby WHITE LAB URINE ORDERABLES Final Resul t Performing Organization Address [facility]/ZIP Co de Phone Number [facility] [address] [place] [address], [place] [phone] * (ABNORMAL) Lipid panel with reflex to direct LDL (11/16/2024 4:00 PM EDT) Cholesterol 266(H) 0 - 200 mg/dL LAB CHEMISTRY METHOD 11/16/2024 7:33 PM EDT [facility] Triglycerides 663(H) 0 - 150 mg/dL LAB CHEMISTRY METHOD 11/16/2024 7:33 PM EDT [facility] HDL 46 >=40 mg/dL LAB CHEMISTRY METHOD 11/16/2024 7:33 PM EDT [facility] LDL Calculated LAB CHEMISTRY METHOD 11/16/2024 7:33 PM EDT [facility] Comment: Unable to calculate when triglycerides >400 mg/dL. Triglyceride value is >= 500. Calculated LDL is not meaningful. Direct LDL has been added. VLDL Cholesterol Leonard LAB CHEMISTRY METHOD 11/16/2024 7:33 PM EDT [facility] Comment:Unable to calculate when triglycerides >400 mg/dL. Non HDL Chol. (LDL+VLDL) LAB CHEMISTRY METHOD 11/16/2024 7:33 PM EDT [facility] Comment:Unable to calculate when triglycerides >400 mg/dL. Chol/HDL Ratio 5.8(H) 0.0 - 4.4 LAB CHEMISTRY METHOD 11/16/2024 7:33 PM EDT [facility] Blood Venous blood specimen / Unknown Venipuncture / Unknown 11/16/2024 4:00 PM EDT 11/16/2024 4:00 PM EDT us Aby Angelo PA LAB BLOOD ORDERABLES Final Resul t Performing Organization Address City/[facility]/ZIP Co de Phone Number [facility] [address] [place] [address], [place] [phone] * (ABNORMAL) Hemoglobin A1c (11/16/2024 4:00 PM EDT) Hemoglobin A1C >14.8(H) <6.5 % LAB CHEMISTRY METHOD 11/16/2024 10:24 PM EDT [facility] Mean Bld Glu Estim. LAB CHEMISTRY METHOD 11/16/2024 10:24 PM EDT [facility] Comment:Unable to calculate due to HgB A1C being outside of the reportable range Blood Venous blood specimen / Unknown Venipuncture / Unknown 11/16/2024 4:00 PM EDT 11/16/2024 4:00 PM EDT us Aby Angelo PA LAB BLOOD ORDERABLES Final Resul t [facility] [address] [place] [address], [place] [phone] * (ABNORMAL) Comprehensive metabolic panel (11/16/2024 4:00 PM EDT) Sodium 130(L) 133 - 145 mmol/L LAB CHEMISTRY METHOD 11/16/2024 8:33 PM [facility] Potassium 4.2 3.5 - 5.5 mmol/L LAB CHEMISTRY METHOD 11/16/2024 8:33 PM [facility] Chloride 94(L) 96 - 110 mmol/L LAB CHEMISTRY METHOD 11/16/2024 8:33 PM [facility] CO2 25 21 - 32 mmol/L LAB CHEMISTRY METHOD 11/16/2024 8:33 PM [facility] Anion Gap 11 3 - 11 LAB CHEMISTRY METHOD 11/16/2024 8:33 PM [facility] Glucose 663(HH) 70 - 100 mg/dL LAB CHEMISTRY METHOD 11/16/2024 8:33 PM [facility] BUN 22 5 - 25 mg/dL LAB CHEMISTRY METHOD 11/16/2024 8:33 PM [facility] Creatinine 1.59(H) 0.70 - 1.30 mg/dL LAB CHEMISTRY METHOD 11/16/2024 8:33 PM [facility] eGFR 58(L) >=60 mL/min/1. 73m2 LAB CHEMISTRY METHOD 11/16/2024 8:33 PM [facility] Comment:Calculation based on the Chronic Kidney Disease Epidemiology Collaboration (CKD-EPI) equation refit without adjustment for race. BUN/Creatinine Ratio 13.8 LAB CHEMISTRY METHOD 11/16/2024 8:33 PM [facility] Calcium 9.6 8.5 - 10.5 mg/dL LAB CHEMISTRY METHOD 11/16/2024 8:33 PM [facility] AST (SGOT) 17 10 - 42 unit/L LAB CHEMISTRY METHOD 11/16/2024 8:33 PM EDT [facility] ALT (SGPT) 23 10 - 60 unit/L LAB CHEMISTRY METHOD 11/16/2024 8:33 PM EDT [facility] Alkaline Phosphatase 165(H) 42 - 121 unit/L LAB CHEMISTRY METHOD 11/16/2024 8:33 PM EDT [facility] Total Protein 7.7 6.0 - 8.0 g/dL LAB CHEMISTRY METHOD 11/16/2024 8:33 PM EDT [facility] Albumin 3.7 3.2 - 5.0 g/dL LAB CHEMISTRY METHOD 11/16/2024 8:33 PM EDT [facility] Total Bilirubin 0.5 0.0 - 1.4 mg/dL LAB CHEMISTRY METHOD 11/16/2024 8:33 PM EDT [facility] Blood Venous blood specimen / Unknown Venipuncture / Unknown 11/16/2024 4:00 PM EDT 11/16/2024 4:00 PM EDT us Aby Petey WHITE LAB BLOOD ORDERABLES Edited Resu lt - Final [facility] [address] [place] [address], [place] [phone] documented in this encounter Visit Diagnoses Diagnosis Type 2 diabetes mellitus with hyperglycemia, with long-term current use of insulin ([facility] V24, [facility] V28)- Primary Type 2 diabetes mellitus with obesity Primary hypertension Unspecified essential hypertension Neuropathy Mononeuritis of unspecified site documented in this encounter Discontinued Medications Medication Sig Discontinue Reason Start Date End Da te sulfamethoxazole-trime thoprim (BACTRIM DS,SEPTRA DS) 800-160 mg per tablet Take 1 tablet by mouth 2 (two) times a day. for 10 days Therapy completed 06/02/2023 11/15/2024 dulaglutide (Trulicity) 0.75 mg/0.5 mL pen injector injection INJECT 0.75 MG SUBCUTANEOUSLY ONCE WEEKLY. Duplicate order 10/19/2024 11/15/2024 glipiZIDE (GLUCOTROL) 5 mg tablet TAKE 2 TABLETS BY MOUTH 2 TIMES A DAY. Therapy completed 11/07/2024 11/15/2024 Lantus Solostar U-100 Insulin 100 unit/mL (3 mL) injection pen Inject 15 Units under the skin 1 (one) time each day. Reorder 08/31/2023 11/15/2024 dulaglutide (Trulicity) 0.75 mg/0.5 mL pen injector injection Inject 0.75 mg into the skin once a week. Reorder 11/15/2023 11/15/2024 blood-glucose sensor (FREESTYLE VAUGHN 3 SENSOR MISC) 1 Applicator by Does not apply route every 14 days. Reorder 10/07/2023 11/15/2024 rosuvastatin (CRESTOR) 5 mg tablet Take 1 tablet (5 mg total) by mouth 1 (one) time each day. Reorder 10/21/2024 11/15/2024 insulin lispro (HumaLOG KwikPen) 100 unit/mL injection pen INJECT INTO THE SKIN DAILY UP TO 3 TIMES A DAY BASED ON BLOOD SUGAR <150: 0 UNITS, 151-200: 2 UNITS, 201-250: 4 UNITS, 251-300: 6 UNITS, 301-350: 8 UNITS, >350: 10 UNITS (MAX DAILY DOSE 30 U) Reorder 10/24/2024 11/15/2024 lisinopriL (PRINIVIL,ZESTRIL) 10 mg tabletIndications:Type 2 diabetes mellitus with hyperglycemia ([facility] [facility] V24, [facility] V28) Take 1 tablet (10 mg total) by mouth 1 (one) time each day. Reorder 10/22/2024 11/15/2024 documented as of this encounter Care Teams Senior Sustainability Consultant Relationship Specialty Start Date End Date Prasanna Reynoso MD [address] [place] [id number] PCP - General 03/25/22 documented as of this encounter
[2024-11-18 16:37] VITALS: BP 163/96; PULSE 86; RESP 18; TEMP 36.2; O2SAT 97; BMI 32.3
--- NOTE | 2024-11-18 16:41 | ED_ITS ---
HPI - General Adult General Chief complaint: Recheck/Abnormal Lab/Rx Stated complaint: increased BS sent by re: abn lab work Time Seen by Provider: 11/18/24 19:35 Related Data Home Medications ?Medication ?Instructions ?Recorded ?Confirmed metformin 500 mg tablet,extended 1,000 mg PO DAILY 08/0905/23/23 release 24 hr Previous Rx's ?Medication ?Instructions ?Recorded blood-glucose meter #1 ea 03/19/21 alcohol swabs 1 pad topical QIDACHS #100 e a 05/25/23 blood pressure monitor (Blood #1 ea 05/25/23 Pressure Kit) blood sugar diagnostic (FreeStyle #100 ea 05/25/23 Lite Strips) blood-glucose meter (FreeStyle #1 ea 05/25/23 Lite Meter kit) glipizide 5 mg tablet 5 mg PO BIDWM #120 tabs 10/09 insulin glargine 100 unit/mL (3 10 unit (0.1 mL) subcu t DAILY #15 05/25/23 mL) subcutaneous pen (Lantus mL Solostar U-100 Insulin) insulin lispro 100 unit/mL 0 sliding scale dose subcut 05/25/23 subcutaneous pen (Humalog KwikPen QIDACHS #15 mL (U-100) Insulin) lancets 28 gauge (FreeStyle #100 ea 05/25/23 Lancets) nystatin 100,000 unit/mL oral 500,000 unit (5 mL) PO Q ID #100 mL 05/25/23 suspension pen needle, diabetic 32 gauge x #100 ea 05/25/2302/19 alcohol swabs 1 pad topical QIDACHS #100 e a 11/18/24 blood sugar diagnostic (FreeStyle #100 ea 11/18/24 Lite Strips) blood-glucose meter (FreeStyle #1 ea 11/18/24 Lite Meter kit) lancets 28 gauge (FreeStyle #100 ea 11/18/24 Lancets) pen needle, diabetic 32 gauge x #100 ea 11/18/2402/19 Allergies Allergy/AdvReac Type Severity Reaction Status Date / Time No Known Allergies Allergy Verified 11/18/24 16:41 [facility] Past Medical History Medical History Diabetes type 2, uncontrolled Social History Social History Household Members: None Housing: Apartment Do you presently have visiting nurse or other home services: No Alcohol intake: current Alcohol intake frequency: does not drink Patient Tobacco Use Status: Never used Tobacco Smoked in Last 30 Days: No Use of substances other than those prescribed or required for medical reasons: No Advance Directives: No Advance Directives Information Provided: No service: No Physical Exam ED Vital Signs: Vital Signs - 24 hr 11/18/24 16:37 Temperature 97.2 F Pulse Rate 86 Respiratory Rate 18 Blood Pressure 163/96 H Pulse Oximetry 97 Oxygen Delivery Method Room Air BMI result Body Mass Index 32.3 Course Course Course Narrative: This is a rapid medical exam performed by Marvin Lynch NP: Additional HPI, ROS, PE not included below will be deferred to primary provider. Patient is a 33y/o M with pmhx of HTN, DM presenting to the ED after his PCP sent the police to his home to notify of abnormal lab results, specifically elevated glucose and c/f DKA. PATIENT REPORTS HE HAS BEEN FEELING LIGHTHEADED, INCREASED THIRST, DRY MOUTH. WAS TOLD HIS GLUCOSE LEVEL WAS OVER 700. HE DENIES ANY NAUSEA OR VOMITING. PLAN: LABS Medications Administered Discontinued Medications Generic Name Dose Route Start Last Admin Trade Name Freeman PRN Reason Stop Dose Admin Lactated Ringer's 1,000 mls @ 999 mls/hr 11/18/24 19:45 11/18/24 21:51 Lr IV 11/18/24 21:45 Infused .Q1H1M [facility] Infusion Sodium Chloride 1,000 mls @ 999 mls/hr 11/18/24 20:00 11/18/24 20:05 Ns IV 11/18/24 21:00 Not Given .Q1H1M [facility] Insulin Human Regular 15 unit 11/18/24 19:35 11/18/24 19:59 Insulin Regular, Human 100 Unit/Ml 10 Ml Vial IVPUSH 11/18/24 19:36 15 unit ONCE ONE Administration Medical Decision Making Lab Data 11/18/24 17:12 11/18/24 17:12 Labs: Lab Results 11/18/24 11/18/24 11/18/24 Range/Units 17:12 17:25 20:12 WBC 9.1 (4.8-10.8) X10*3/uL RBC 4.98 (4.60-5.80) X10*6/uL Hgb 13.6 L (14.0-18.0) g/dl Hct 39.0 L (42.0-52.0) % MCV 78.3 L (80.0-98.0) fL MCH 27.3 (27.0-33.0) pg MCHC 34.9 (31.0-36.0) g/dl RDW 12.8 (11.0-16.0) % Plt Count 313 (160-400) X10*3/uL MPV 10.0 (9.4-12.4) fL Immature Gran % (Auto) 0.3 (0.0-0.4) % Neut % (Auto) 51.3 (45-73) % Lymph % (Auto) 35.8 (20-40) % George % (Auto) 8.5 (2-11) % Eos % (Auto) 3.4 (0-4) % Baso % (Auto) 0.7 (0-2) % Lymph # (Auto) 3.3 (1.2-4.9) X10*3/uL George # (Auto) 0.8 (0.1-1.2) X10*3/uL Eos # (Auto) 0.3 (0.0-0.4) X10*3/uL Baso # (Auto) 0.1 (0.0-0.2) X10*3/uL Abs Immat Gran (auto) 0.03 (0.00-0.03) X10*3/uL Absolute Neuts (auto) 4.7 (2.0-8.3) x10*3/uL Absolute Nucleated RBC 0.000 (0.0-0.012) X10*3/uL Nucleated RBC % (auto) 0.0 (0.0-0.2) /100WBC VBG pH 7.37 (7.32-7.43) VBG pCO2 48 mmHg VBG pO2 66 mmHg VBG HCO3 28 H (22-26) mmol/L VBG O2 Saturation 88.0 % VBG Base Excess 2.2 mmol/L Sodium 133 L (135-145) mmol/L Potassium 4.4 D (3.3-5.1) mmol/L Chloride 100 (96-108) mmol/L Carbon Dioxide 24 (22-29) mmol/L Anion Gap 13 (12-20) BUN 17 H (9-16) mg/dL Creatinine 1.33 (0.5-1.4) mg/dL Estim Creat Clear Calc 92.7 Estimated GFR > 60 POC Glucose 520 H* (60-115) mg/dL Random Glucose 692 H* (60-115) mg/dL Estimat Average Glucose TNP Hemoglobin A1c % > 14.0 H (<6.0) % Calcium 8.6 D (8.4-10.2) mg/dL Magnesium 1.9 (1.6-2.6) mg/dL Total Bilirubin 0.4 (0.0-1.0) mg/dL AST 16 (5-37) U/L ALT 9 (0-40) U/L Alkaline Phosphatase 120 H (39-117) U/L Total Protein 6.7 (6.5-8.0) g/dL Albumin 3.6 (3.5-5.0) g/dL Beta-Hydroxybutyrate 0.15 (0.02-0.27) mmol/L 11/18/24 Range/Units 21:54 WBC (4.8-10.8) X10*3/uL RBC (4.60-5.80) X10*6/uL Hgb (14.0-18.0) g/dl Hct (42.0-52.0) % MCV (80.0-98.0) fL MCH (27.0-33.0) pg MCHC (31.0-36.0) g/dl RDW (11.0-16.0) % Plt Count (160-400) X10*3/uL MPV (9.4-12.4) fL Immature Gran % (Auto) (0.0-0.4) % Neut % (Auto) (45-73) % Lymph % (Auto) (20-40) % George % (Auto) (2-11) % Eos % (Auto) (0-4) % Baso % (Auto) (0-2) % Lymph # (Auto) (1.2-4.9) X10*3/uL George # (Auto) (0.1-1.2) X10*3/uL Eos # (Auto) (0.0-0.4) X10*3/uL Baso # (Auto) (0.0-0.2) X10*3/uL Abs Immat Gran (auto) (0.00-0.03) X10*3/uL Absolute Neuts (auto) (2.0-8.3) x10*3/uL Absolute Nucleated RBC (0.0-0.012) X10*3/uL Nucleated RBC % (auto) (0.0-0.2) /100WBC VBG pH (7.32-7.43) VBG pCO2 mmHg VBG pO2 mmHg VBG HCO3 (22-26) mmol/L VBG O2 Saturation % VBG Base Excess mmol/L Sodium (135-145) mmol/L Potassium (3.3-5.1) mmol/L Chloride (96-108) mmol/L Carbon Dioxide (22-29) mmol/L Anion Gap (12-20) BUN (9-16) mg/dL Creatinine (0.5-1.4) mg/dL Estim Creat Clear Calc Estimated GFR POC Glucose 179 H (60-115) mg/dL Random Glucose (60-115) mg/dL Estimat Average Glucose Hemoglobin A1c % (<6.0) % Calcium (8.4-10.2) mg/dL Magnesium (1.6-2.6) mg/dL Total Bilirubin (0.0-1.0) mg/dL AST (5-37) U/L ALT (0-40) U/L Alkaline Phosphatase (39-117) U/L Total Protein (6.5-8.0) g/dL Albumin (3.5-5.0) g/dL Beta-Hydroxybutyrate (0.02-0.27) mmol/L Discharge Plan Discharge Clinical Impression: Acute hyperglycemia Patient Disposition: Home, Self-Care Instructions: Foot Care for People with Diabetes (DC), Diabetic Hyperglycemia (ED), Diabetes and Nutrition (ED) Prescriptions: New (DME) FreeStyle Lite Strips Strip Qty: 100 0RF Rx Instructions: Test four times a day or as directed. (DME) blood-glucose meter [FreeStyle Lite Meter] Kit Qty: 1 0RF Rx Instructions: As Directed alcohol swabs Pads, Medicated 1 pad TOPICAL QIDACHS Qty: 100 0RF Rx Instructions: Use four times a day or as directed. (DME) pen needle, diabetic 32 gauge x 1/4 needle Qty: 100 0RF Rx Instructions: Use four times a day or as directed. (DME) lancets [FreeStyle Lancets] 28 gauge misc Qty: 100 0RF Rx Instructions: Test four times a day or as directed. No Action (DME) blood-glucose meter Kit See Rx Instructions .Route Qty: 1 0RF Rx Instructions: As directed metformin 500 mg tablet extended release 24 hr 1,000 mg PO DAILY nystatin 100,000 unit/mL Suspension 500,000 unit PO QID Qty: 100 0RF Rx Instructions: nystatin oral switch and swallow [id number] units qid -end date 05/30/23 glipizide 5 mg Tablet 5 mg PO BIDWM Qty: 120 0RF (DME) FreeStyle Lite Strips Strip Qty: 100 0RF Rx Instructions: Test four times a day or as directed. (DME) blood-glucose meter [FreeStyle Lite Meter] Kit Qty: 1 0RF Rx Instructions: As Directed alcohol swabs Pads, Medicated 1 pad TOPICAL QIDACHS Qty: 100 0RF Rx Instructions: Use four times a day or as directed. insulin glargine [Lantus Solostar U-100 Insulin] 100 unit/mL (3 mL) insulin pen 10 unit SUBCUT DAILY Qty: 15 0RF (DME) pen needle, diabetic 32 gauge x 1/4 needle Qty: 100 0RF Rx Instructions: Use four times a day or as directed. (DME) lancets [FreeStyle Lancets] 28 gauge misc Qty: 100 0RF Rx Instructions: Test four times a day or as directed. (DME) blood pressure monitor [Blood Pressure Kit] Kit See Rx Instructions .Route Qty: 1 0RF Rx Instructions: As directed insulin lispro [Humalog KwikPen Insulin] 100 unit/mL insulin pen 0 sliding scale dose SUBCUT QIDACHS Qty: 15 0RF Rx Instructions: Blood Sugar: <150 - 0 units 151-200 - 2 units 201-250 - 4 units 251-300 - 6 units 301-350 - 8 units >350 - 10 units Referrals: EdgardoPrasanna wolf MD [Primary Care Provider, Internal Medicine] - 11/28/24 Print Language: Tamazight
[2024-11-18 17:24] LABS: MANUAL DIFF FLAG NO
[2024-11-18 17:27] LABS: Hematocrit 39.0 % (42.0-52.0); Hemoglobin 13.6 g/dl (14.0-18.0); Imm Gran Abs Auto 0.03 X10*3/uL (0.00-0.03); Imm Gran Pct Auto 0.3 % (0.0-0.4); Lymphocytes Absolute Auto 3.3 X10*3/uL (1.2-4.9); Mean Corpuscular HGB Conc 34.9 g/dl (31.0-36.0); Mean Corpuscular Hemoglobin 27.3 pg (27.0-33.0); Mean Corpuscular Volume 78.3 fL (80.0-98.0); NRBC Abs Auto 0.000 X10*3/uL (0.0-0.012); NRBC Pct Auto 0.0 /100WBC (0.0-0.2); Platelet Count 313 X10*3/uL (160-400); Red Blood Count 4.98 X10*6/uL (4.60-5.80); White Blood Count 9.1 X10*3/uL (4.8-10.8)
[2024-11-18 17:29] LABS: VBG HCO3 28 mmol/L (22-26); VBG O2 % Saturation 88.0 %
[2024-11-18 17:32] LABS: Venous Blood Gas Refer to POC result
[2024-11-18 17:41] LABS: Total Hemoglobin (HGBA1C) 3546.8751 umol/L
[2024-11-18 17:56] LABS: Alanine Aminotransferase 9 U/L (0-40); Albumin Level 3.6 g/dL (3.5-5.0); Alkaline Phosphatase 120 U/L (39-117); Anion Gap 13 (12-20); Aspartate Amino Transferase 16 U/L (5-37); Blood Urea Nitrogen 17 mg/dL (9-16); Calcium 8.6 mg/dL (8.4-10.2); Carbon Dioxide 24 mmol/L (22-29); Chloride 100 mmol/L (96-108); Creatinine Clr Calc Pharmacy 92.7; Estimated Glomerular Filt Rate > 60; Magnesium 1.9 mg/dL (1.6-2.6); Potassium 4.4 mmol/L (3.3-5.1); Sodium 133 mmol/L (135-145); Total Protein 6.7 g/dL (6.5-8.0)
--- NOTE | 2024-11-18 19:31 | PC.NURSE ---
pt reports PCP advising of 600 glucose reading. pt is supposed to take long acting insulin in the morning and if glucose is above 200 he should use sliding scale. pt did not have insurance for 3 months and did not have a way of getting insulin or glucometer. Pt now has the items but was advised that he should come to ED by PCP. Pt reports thirst, polyuria, and numbness in b/l big toes. denies nausea or vomiting, has not been sick recently.
--- OUTSIDE RECORDS SUMMARY | 2024-11-18 19:32 | XMS_ITS | Clinical Summary ---
Author Organization [address] Address [address] [place] [phone] Phone Care Team Providers Care Sheet Metal Duct Worker Supervisor Name Role Phone Prasanna Reynoso MD Primary Care Provider Allergies No known active allergies Medications ibuprofen (ADVIL,MOTRIN) 800 mg tablet Take 1 tablet (800 mg total) by mouth every 8 (eight) hours if needed. 024 Active naproxen (NAPROSYN) 500 mg tablet Take 1 tablet (500 mg total) by mouth 2 (two) times a day with meals. 024 Active blood glucose control high,low (FreeStyle Control) solution Check Blood sugar daily. E11.65 023 Active betamethasone, augmented, (DIPROLENE) 0.05 % lotion APPLY TOPICALLY TO SCALP EVERY EVENING. 024 Active pen needle, diabetic 32 gauge x 5/32 needle Use four times a day as directed to inject insulin 024 Active FREESTYLE LANCETS [facility] Check Blood sugar daily. E11.65 023 Active FreeStyle Lite Meter monitoring kitIndications:T ype 2 diabetes mellitus with hyperglycemia, without long-term current use of insulin (CMS/[facility] V24, CMS/[facility] V28),Type 2 diabetes mellitus with obesity CHECK BLOOD SUGAR DAILY. 1 kit 025 Active blood sugar diagnostic (FreeStyle Lite Strips) test stripIndications :Type 2 diabetes mellitus with hyperglycemia, without long-term current use of insulin (CMS/[facility] V24, CMS/[facility] V28) CHECK BLOOD SUGAR ONCE DAILY 100 strip 1 025 Active metFORMIN XR (GLUCOPHAGE-XR) 500 mg 24 hr tabletIndication s:Type 2 diabetes mellitus with hyperglycemia ([facility] V24, [facility] V28) Take 2 tablets (1,000 mg total) by mouth 2 (two) times a day with meals. 360 tablet 1 025 Active insulin lispro (HumaLOG KwikPen) 100 unit/mL injection pen INJECT INTO THE SKIN DAILY UP TO 3 TIMES A DAY BASED ON BLOOD SUGAR <150: 0 UNITS, 151-200: 2 UNITS, 201-250: 4 UNITS, 251-300: 6 UNITS, 301-350: 8 UNITS, >350: 10 UNITS (MAX DAILY DOSE 30 U) 15 mL 1 025 Active lisinopriL (PRINIVIL,ZESTRI L) 10 mg tabletIndication s:Type 2 diabetes mellitus with hyperglycemia, with long-term current use of insulin ([facility] V24, [facility] V28) Take 1 tablet (10 mg total) by mouth 1 (one) time each day. 90 each 1 025 Active FreeStyle Vaughn 3 Plus Sensor device USE 1 SENSOR EVERY 14 DAYS 6 each 1 025 Active ergocalciferol (VITAMIN D-2) 1,250 mcg (50,000 unit) capsule Take 1 capsule (50,000 Units total) by mouth 1 (one) time per week. 8 capsule 025 Active tirzepatide (MOUNJARO) 2.5 mg/0.5 mL injection Inject 0.5 mL (2.5 mg total) under the skin every 7 (seven) days. 2 mL 2 025 Active rosuvastatin (CRESTOR) 10 mg tablet Take 1 tablet (10 mg total) by mouth 1 (one) time each day. 30 each 5 025 2025 Active Lantus Solostar U-100 Insulin 100 unit/mL (3 mL) injection pen Inject 20 Units under the skin at bedtime. 20 mL 1 025 Active Lantus Solostar U-100 Insulin 100 unit/mL (3 mL) injection pen Inject 15 Units under the skin 1 (one) time each day. 024 2024 Discontinued(R eorder) sulfamethoxazole -trimethoprim (BACTRIM DS,SEPTRA DS) 800-160 mg per tablet Take 1 tablet by mouth 2 (two) times a day. for 10 days 2024 Discontinued(T herapy completed) dulaglutide (Trulicity) 0.75 mg/0.5 mL pen injector injection Inject 0.75 mg into the skin once a week. 024 2024 Discontinued(R eorder) blood-glucose sensor (FREESTYLE VAUGHN 3 SENSOR [facility]) 1 Applicator by Does not apply route every 14 days. 024 2024 Discontinued(R eorder) insulin lispro (HumaLOG KwikPen) 100 unit/mL injection pen INJECT INTO THE SKIN DAILY UP TO 3 TIMES A DAY BASED ON BLOOD SUGAR <150: 0 UNITS, 151-200: 2 UNITS, 201-250: 4 UNITS, 251-300: 6 UNITS, 301-350: 8 UNITS, >350: 10 UNITS 15 mL 025 2024 Discontinued dulaglutide (Trulicity) 0.75 mg/0.5 mL pen injector injection INJECT 0.75 MG SUBCUTANEOUSLY ONCE WEEKLY. 2 mL 1 2024 Discontinued(D uplicate order) rosuvastatin (CRESTOR) 5 mg tablet Take 1 tablet (5 mg total) by mouth 1 (one) time each day. 30 tablet 025 2024 Discontinued(R eorder) lisinopriL (PRINIVIL,ZESTRI L) 5 mg tabletIndication s:Type 2 diabetes mellitus with hyperglycemia (CMS/HCC V24, CMS/HCC V28) Take 2 tablets (10 mg total) by mouth 1 (one) time each day. 60 tablet 025 2024 Discontinued glipiZIDE (GLUCOTROL) 5 mg tablet Take 2 tablets (10 mg total) by mouth 2 (two) times a day. 30 tablet 025 2024 Discontinued insulin lispro (HumaLOG KwikPen) 100 unit/mL injection pen INJECT INTO THE SKIN DAILY UP TO 3 TIMES A DAY BASED ON BLOOD SUGAR <150: 0 UNITS, 151-200: 2 UNITS, 201-250: 4 UNITS, 251-300: 6 UNITS, 301-350: 8 UNITS, >350: 10 UNITS (MAX DAILY DOSE 30 U) 15 mL 025 2024 Discontinued(R eorder) lisinopriL (PRINIVIL,ZESTRI L) 10 mg tabletIndication s:Type 2 diabetes mellitus with hyperglycemia ([facility] V24, [facility] V28) Take 1 tablet (10 mg total) by mouth 1 (one) time each day. 30 each 025 2024 Discontinued(R eorder) glipiZIDE (GLUCOTROL) 5 mg tablet TAKE 2 TABLETS BY MOUTH 2 TIMES A DAY. 30 tablet 025 2024 Discontinued(T herapy completed) rosuvastatin (CRESTOR) 5 mg tablet Take 1 tablet (5 mg total) by mouth 1 (one) time each day. 90 tablet 1 2024 Discontinued(D ose adjustment) dulaglutide (Trulicity) 0.75 mg/0.5 mL pen injector injection Inject 0.5 mL (0.75 mg total) under the skin 1 (one) time per week. 2 mL 5 2024 Discontinued(T herapy completed) Lantus Solostar U-100 Insulin 100 unit/mL (3 mL) injection pen Inject 15 Units under the skin at bedtime. 15 mL 1 2024 Discontinued(R eorder) blood-glucose sensor (FreeStyle Vaughn 3 Sensor) device 1 Applicator by Does not apply route every 14 days. 6 each 1 025 2024 Discontinued Active Problems Problem Noted Date Diagnosed Date Acne keloidalis nuchae 09/01/2023 Hypertension 08/31/2023 Type 2 diabetes mellitus with obesity 08/31/2023 Overview (11/16/2024): 11/16/24 Regulatory IMO Update Bunion 04/02/2022 Diabetes mellitus ([facility] V24, [facility] V28) 11/2022 Type 2 diabetes mellitus wit h hyperglycemia, without long-term current use of insulin ([facility] V24, [facility] V28) 03/28/2022 Encounters Date Type Department Care Team Description 11/17/2024 Results Follow-Up Adult Medicine [address] [phone] Aby Angelo PA 11/15/2024 1:00 PM EDT Office Visit Adult Medicine [address] [phone] Aby Angelo PA Type 2 diabetes mellitus with hyperglycemia, with long-term current use of insulin ([facility] V24, [facility] V28) (Primary Dx); Type 2 diabetes mellitus with obesity ([facility] V24, [facility] V28); Primary hypertension; Neuropathy 11/15/2024 Telephone Adult Medicine [address] [phone] Aby Angelo PA from Last 3 Months Immunizations Immunization Administration Dates Next Due DTP 04/15/1993, 1,06/12/1989,1989,02/04/1989 [id number] (Pentacel) 2mo to less than 5yo 09/08/1990 Hepatitis B Pediatric (Enger ix B; Recombivax HB) to less than 20 yo 08/31/1998,01/17/1998,09/12/1997 MMR, measles mumps and rubel la Live (Priorix; M-M-R II) 12mo and older 03/06/1994,09/08/1990 OPV 04/15/1993, 1,06/12/1989,1989,02/04/1989 PPD Test 08/09/2007 Pneumococcal conjugate 20 va lent (Prevnar 20, PCV 20) 2mo and older 09/14/2023 Td Tetanus diptheria (Tdvax) 7yo and older 11/10/2019,08/31/1998 Tdap Tetanus diptheria acell ular pertussis (Boostrix; Adacel) 7yo and older 09/23/2005 Varicella live (Varivax) 12m o and older 02/14/1997 Surgical History Surgery Date Site/Laterality Comments OTHER SURGICAL HISTORY PROCEDURE: DENIES PREVIOUS SURGERY Family History Medical History Relation Name Comments Allergies Maternal Grandmother Asthma Maternal Grandmother Relation Name Status Comments Father Alive 1967 Maternal Grandmother Mother Alive 1965 Sister 1 Alive Sister 2 Alive Social History Tobacco Use Types Packs/Day Years [...] for your loved ones. For example, child care leader or elderly care for an older adult? [...] on file Sexual Orientation Not on file Obstetrics History Last Filed Vital Signs Vital Sign Reading [...] Mass Index 30.71 11/15/2024 1:11 PM EDT Plan of Treatment Upcoming Encounters Date Type Department Care Team (Late st Contact Info) Description 12/06/2024 10:30 AM EDT Office Visit Adult Medicine [facility] [address], [place] [phone] Prasanna Reynoso MD [address], [place] Health Maintenance Due Date Last Done Comments Diabetes: Annual Retina Eye Exam 1998 HPV Vaccines (1 - 3-dose SCDM series) 12/02/2015 Hepatitis C Screening 01/19/2022 Depression Screening 02/17/2024 09/14/2023 COVID-19 Vaccine ( season) 2024 Diabetes: Blood Sugar Control Test (HGBA1C) 05/17/2025 11/16/2024, 09/14/2023, 09/14/2023 Diabetes: Annual Foot Exam 11/15/2025 11/15/2024, Social Influencers of Health Screening 11/15/2025 11/15/2024 Diabetes: Annual Urine Albumin-Creatinine Ratio (uACR) 11/16/2025 11/16/2024, 09/14/2023 Diabetes: Annual GFR (Glomerular Filtration Rate) 11/16/2025 11/16/2024, 09/14/2023, 09/14/2023 Hypertension/CHF/CAD Annual BMP Blood Test 11/16/2025 11/16/2024, 09/14/2023, 09/14/2023 DTaP,Tdap,and Td Vaccines (8 - Td or Tdap) 11/09/2029 11/10/2019, 09/23/2005, 08/31/1998, Additional history exists Cholesterol Screening (Lipid Panel) 11/16/2029 11/16/2024, 11/16/2024, 09/14/2023, Additional history exists RSV Immunization Adult Patients (1 - 1-dose 75+ series) 12/02/2063 HIB Vaccines Completed 09/08/1990, 09/08/1990 IPV Vaccines Completed 04/15/1993, 01/17, 09/08/1990, Additional history exists MMR Vaccines Completed 03/06/1994, 09/08/1990 Varicella Vaccines Aged Out 02/14/1997 No longer eligible based on patient's age to complete this topic Hepatitis B Vaccines Completed 08/31/1998, 01/17/1998, 09/12/1997 HIV Screening Completed 05/03/2009 Pneumococcal Vaccine: Pediatrics (0 to 5 Years) and At-Risk Patients (6 to 49 Years) Completed 09/14/2023 Hepatitis A Vaccines Aged Out No long er eligible based on patient's age to complete this topic Influenza Vaccine Discontinued Meningococcal ACWY Vaccine Aged Out N o longer eligible based on patient's age to complete this topic Meningococcal B Vaccine Aged Out No l onger eligible based on patient's age to complete this topic RSV Immunization Patients Under 20 months Aged Out No longer eligible based on patient's age to complete this topic Procedures Procedure Name Priority Date/Time Associated Diagnosis Comments LDL CHOLESTEROL, DIRECT Routine 11/16/2024 4:00 PM EDT Type 2 diabetes mellitus with hyperglycemia, with long-term current use of insulin ([facility] V24, [facility] V28) COMPREHENSIVE METABOLIC PANEL Routine 11/16/2024 4:00 PM EDT Type 2 diabetes mellitus with hyperglycemia, with long-term current use of insulin ([facility] V24, [facility] V28) HEMOGLOBIN A1C Routine 11/16/2024 4:00 PM EDT Type 2 diabetes mellitus with hyperglycemia, with long-term current use of insulin ([facility] V24, [facility] V28) LIPID PANEL WITH REFLEX TO DIRECT LDL Routine 11/16/2024 4:00 PM EDT Type 2 diabetes mellitus with hyperglycemia, with long-term current use of insulin ([facility] V24, [facility] V28) MICROALBUMIN CREATININE URINE RATIO Routine 11/16/2024 4:00 PM EDT Type 2 diabetes mellitus with hyperglycemia, with long-term current use of insulin ([facility] V24, [facility] V28) VITAMIN B12 Routine 11/16/2024 4:00 PM EDT Neuropathy VITAMIN D 25 HYDROXY Routine 11/16/2024 4:00 PM EDT Neuropathy DEPRESSION SCREENING Routine 09/14/2023 DIABETES FOOT EXAM Routine 09/14/2023 HIV SCREENING Routine 05/03/2009 from Last 3 Months or Most Recently Relevant to Health Maintenance Results * (ABNORMAL) Lipid panel with reflex to direct LDL (11/16/2024 4:00 PM EDT) [facility] [address] Cholesterol 266(H) 0 - 200 mg/dL LAB CHEMISTRY METHOD 11/16/2024 7:33 PM EDT [facility] Triglycerides 663(H) 0 - 150 mg/dL LAB CHEMISTRY METHOD 11/16/2024 7:33 PM EDT [facility] HDL 46 >=40 mg/dL LAB CHEMISTRY METHOD 11/16/2024 7:33 PM EDT [facility] LDL Calculated LAB CHEMISTRY METHOD 11/16/2024 7:33 PM EDT [facility] Comment: Unable to calculate when triglycerides >400 mg/dL. Triglyceride value is >= 500. Calculated LDL is not meaningful. Direct LDL has been added. VLDL Cholesterol Leonard LAB CHEMISTRY METHOD 11/16/2024 7:33 PM EDT [facility] Comment:Unable to calculate when triglycerides >400 mg/dL. Non HDL Chol. (LDL+VLDL) LAB CHEMISTRY METHOD 11/16/2024 7:33 PM EDT [facility] Comment:Unable to calculate when triglycerides >400 mg/dL. Chol/HDL Ratio 5.8(H) 0.0 - 4.4 LAB CHEMISTRY METHOD 11/16/2024 7:33 PM T [facility] Blood Venous blood specimen / Unknown Venipuncture / Unknown 11/16/2024 4:00 PM EDT 11/16/2024 4:00 PM EDT us Aby Petey WHITE LAB BLOOD ORDERABLES Final Resul t [facility] [address] [place] [address], * Microalbumin creatinine urine ratio (11/16/2024 4:00 PM EDT) Creatinine, Urine 36.0 mg/dL LAB CHEMISTRY METHOD 11/16/2024 7:21 PM EDT [facility] Microalb, Ur 9.3 0.0 - 29.0 mg/L LAB CHEMISTRY METHOD 11/16/2024 7:21 PM EDT [facility] Microalb/Creat Ratio 26 <30 mg/g creat LAB CHEMISTRY METHOD 11/16/2024 7:21 PM EDT [facility] Urine Urine specimen obtained by clean catch procedure / Unknown Non-blood Collection / Unknown 11/16/2024 4:00 PM EDT 11/16/2024 4:00 PM EDT us Aby Angelo PA LAB URINE ORDERABLES Final Resul t Performing Organization Address [facility] de Phone Number [facility] [address] [place] [address], [place] [phone] * (ABNORMAL) Vitamin D 25 hydroxy (11/16/2024 4:00 PM EDT) Vit D, 25-Hydroxy 6.6(L) 30.0 - 80.0 ng/mL LAB CHEMISTRY METHOD 11/16/2024 7:33 PM EDT [facility] Blood Venous blood specimen / Unknown Venipuncture / Unknown 11/16/2024 4:00 PM EDT 11/16/2024 4:00 PM EDT us Aby WHITE LAB BLOOD ORDERABLES Final Resul t Performing Organization Address [facility] de Phone Number [facility] [address] [place] [address], [place] [phone] * (ABNORMAL) LDL cholesterol, direct (11/16/2024 4:00 PM EDT) LDL Direct 164(H) <=100 mg/dL LAB CHEMISTRY METHOD 11/16/2024 7:48 PM EDT [facility] Blood Venous blood specimen / Unknown Venipuncture / Unknown 11/16/2024 4:00 PM EDT 11/16/2024 4:00 PM EDT Aby Petey PA LAB BLOOD ORDERABLES Final Resul t Performing Organization Address [facility] de Phone Number [facility] [address] [place] [address], [place] [phone] * (ABNORMAL) Hemoglobin A1c (11/16/2024 4:00 PM EDT) [facility] [address] Hemoglobin A1C >14.8(H) <6.5 % LAB CHEMISTRY METHOD 11/16/2024 10:24 PM EDT [facility] Mean Bld Glu Estim. LAB CHEMISTRY METHOD 11/16/2024 10:24 PM EDT [facility] Comment:Unable to calculate due to HgB A1C being outside of the reportable range Blood Venous blood specimen / Unknown Venipuncture / Unknown 11/16/2024 4:00 PM EDT 11/16/2024 4:00 PM EDT Aby Angelo PA LAB BLOOD ORDERABLES Final Resul t Performing Organization Address [facility] de Phone Number [facility] [address] [place] [address], [place] [phone] * Vitamin B12 (11/16/2024 4:00 PM EDT) [facility] [address] Vitamin B-12 892 250 - 900 pcg/mL LAB CHEMISTRY METHOD 11/16/2024 7:33 PM EDT [facility] Blood Venous blood specimen / Unknown Venipuncture / Unknown 11/16/2024 4:00 PM EDT 11/16/2024 4:00 PM EDT us Aby Angelo PA LAB BLOOD ORDERABLES Final Resul t Performing Organization Address [facility]/ZIP Co de Phone Number [facility] [address] [place] [address], [place] [phone] * (ABNORMAL) Comprehensive metabolic panel (11/16/2024 4:00 PM EDT) [facility] [address] Sodium 130(L) 133 - 145 mmol/L LAB CHEMISTRY METHOD 11/16/2024 8:33 PM [facility] Potassium 4.2 3.5 - 5.5 mmol/L LAB CHEMISTRY METHOD 11/16/2024 8:33 PM [facility] Chloride 94(L) 96 - 110 mmol/L LAB CHEMISTRY METHOD 11/16/2024 8:33 PM [facility] CO2 25 21 - 32 mmol/L LAB CHEMISTRY METHOD 11/16/2024 8:33 PM [facility] Anion Gap 11 3 - 11 LAB CHEMISTRY METHOD 11/16/2024 8:33 PM [facility] Glucose 663(HH) 70 - 100 mg/dL LAB CHEMISTRY METHOD 11/16/2024 8:33 PM [facility] BUN 22 5 - 25 mg/dL LAB CHEMISTRY METHOD 11/16/2024 8:33 PM [facility] Creatinine 1.59(H) 0.70 - 1.30 mg/dL LAB CHEMISTRY METHOD 11/16/2024 8:33 PM [facility] eGFR 58(L) >=60 mL/min/1. 73m2 LAB CHEMISTRY METHOD 11/16/2024 8:33 PM [facility] Comment:Calculation based on the Chronic Kidney Disease Epidemiology Collaboration (CKD-EPI) equation refit without adjustment for race. BUN/Creatinine Ratio 13.8 LAB CHEMISTRY METHOD 11/16/2024 8:33 PM [facility] Calcium 9.6 8.5 - 10.5 mg/dL LAB CHEMISTRY METHOD 11/16/2024 8:33 PM [facility] AST (SGOT) 17 10 - 42 unit/L LAB CHEMISTRY METHOD 11/16/2024 8:33 PM [facility] ALT (SGPT) 23 10 - 60 unit/L LAB CHEMISTRY METHOD 11/16/2024 8:33 PM [facility] Alkaline Phosphatase 165(H) 42 - 121 unit/L LAB CHEMISTRY METHOD 11/16/2024 8:33 PM EDT [facility] Total Protein 7.7 6.0 - 8.0 g/dL LAB CHEMISTRY METHOD 11/16/2024 8:33 PM EDT [facility] Albumin 3.7 3.2 - 5.0 g/dL LAB CHEMISTRY METHOD 11/16/2024 8:33 PM EDT [facility] Total Bilirubin 0.5 0.0 - 1.4 mg/dL LAB CHEMISTRY METHOD 11/16/2024 8:33 PM EDT [facility] Blood Venous blood specimen / Unknown Venipuncture / Unknown 11/16/2024 4:00 PM EDT 11/16/2024 4:00 PM EDT Aby Petey WHITE LAB BLOOD ORDERABLES Edited Resu lt - Final [facility] [address] [place] [address], * Depression Screening (09/14/2023) Pathologist [facility] Depression Screening abstracted Historical Provider HEALTH MAINTENANCE Final Result * Diabetes Foot Exam (09/14/2023) Pathologist [facility] Diabetes: Annual Foot Exam abstracted Historical Provider HEALTH MAINTENANCE Final Result * HIV Screening (05/03/2009) [facility] [address] HIV Screening abstracted Historical Provider HEALTH MAINTENANCE Final Result from Last 3 Months or Most Recently Relevant to Health Maintenance Insurance Care Teams Sheet Metal Duct Worker Supervisor Relationship Specialty Start Date End Date Prasanna Reynoso MD [address] [place] [phone] PCP - General 03/25/22
--- OUTSIDE RECORDS SUMMARY | 2024-11-18 19:32 | XMS_ITS ---
Author Name [facility] Organization Unknown Care Team Organization Name Specialty Phone Email Start Date End Da te [facility] PILY ELIAS Primary Care 06/23/2022 10/05/2023 [facility] Ashley Aquino MD Primary Care 12/24/2021 10/05/2023 [facility]
--- OUTSIDE RECORDS SUMMARY | 2024-11-18 19:33 | XMS_ITS | Encounter Summary ---
Author Organization [facility] Address [address] [place] [address] Care Team Providers Care Conveyor Attendant Name Role Phone Prasanna Reynoso MD Primary Care Provider Reason for Referral * Consultation (Urgent) - Authorized Specialty Diagnoses / Procedures Referred By Linda t Referred To Contact Endocrinology Diagnoses Type 2 diabetes mellitus with hyperglycemia, with long-term current use of insulin (CMS/HCC V24, CMS/HCC V28) Aby Angelo PA [address] [place] [address] Phone: tel: fax: Endocrinology - [address] Phone: tel: fax: Referral ID Status Reason Start Date Expiration Date Visits Requested Visits Authorized [id number] Authorized Specialty Services Required 11/17/2024 11/17/2025 1 1 Encounter Details Date Type Department Care Team (Late st Contact Info) Description 11/17/2024 Results Follow-Up Adult Medicine [address] [phone] Aby Angelo PA [address] [place] [address] Social History Tobacco Use Types Packs/Day Years Used Date Smoking Tobacco: Never Smokeless Tobacco: Never Alcohol Use Standard Drinks/Week Comments No 0 [...] for your loved ones. For example, child welfare caseworker or elderly care for an older adult? [...] on file documented as of this encounter Ordered Prescriptions Prescription Sig Dispense Quantity Refills Last Filled Start Date End Date Lantus Solostar U-100 Insulin 100 unit/mL (3 mL) injection pen Inject 20 Units under the skin at bedtime. 20 mL 1 11/17/2024 rosuvastatin (CRESTOR) 10 mg tablet Take 1 tablet (10 mg total) by mouth 1 (one) time each day. 30 each 5 11/17/2024 tirzepatide (MOUNJARO) 2.5 mg/0.5 mL injection Inject 0.5 mL (2.5 mg total) under the skin every 7 (seven) days. 2 mL 2 11/17/2024 ergocalciferol (VITAMIN D-2) 1,250 mcg (50,000 unit) capsule Take 1 capsule (50,000 Units total) by mouth 1 (one) time per week. 8 capsule 11/17/2024 documented in this encounter Progress Notes * Kasia Colmenares RN - 11/17/2024 4:50 PM EDT Called , report states officer went to location, car in driveway registered to pt, there was music playing but no answer at the door, officer went to back and was able to enter without issue, pt. Wasnot there after thorough check * CINDY Fortune - 11/17/2024 2:52 PM EDT Please call for a wellness check up. Concerned blood sugar 663 yesterday. Patient not picking up phone. * CINDY Fortune - 11/17/2024 1:40 PM EDT Called patient multiple times today at [phone], left a voicemail. [phone] is not his phone number. No emergency contacts. Per on-call provider, his blood sugar was improved on the phone at 162. Current plan: Will have him do blood work tomorrow: Fasting lipid profile and BMP. If glucose is still significantly elevated, he needs to go to the ER. Will adjust insulin Lantus to 20 units at bedtime. Advise him to increase by 2 units every 3 days if fasting blood sugar averages below above 130. Will switch Trulicity to Mounjaro 2.5 mg weekly. Will increase Crestor to 10 mg. Will send urgent referral to endocrinology. Vitamin D deficiency at 6. I have sent the Enzo boost dose of vitamin D to the pharmacy, recheck the vitamin D level at the lab in 8 weeks. Address elevated alk phos later. documented in this encounter Plan of Treatment Upcoming Encounters Date Type Department Care Team (Late st Contact Info) Description 12/06/2024 10:30 AM EDT Office Visit Adult Medicine [facility] [address] [place], [place] [phone] Prasanna Reynoso MD [address] [place], [place] Scheduled Orders Name Type Priority Associated Diagnoses Orde r Schedule Basic metabolic panel Lab Routine Type 2 diabetes mellitus with hyperglycemia, with long-term current use of insulin ([facility] V24, [facility] V28) Expected: 11/17/2024, Expires: 11/17/2025 Lipid panel with reflex to direct LDL Lab Routine Type 2 diabetes mellitus with hyperglycemia, with long-term current use of insulin ([facility] V24, [facility] V28) 1 Occurrences starting 11/17/2024 until 11/17/2025 Vitamin D 25 hydroxy Lab Routine Vitamin D deficiency Expected: 01/17/2025 (Approximate), Expires: 11/17/2025 Scheduled Referrals Name Type Priority Associated Diagnoses Order Schedule Ambulatory referral to Endocrinology Outpatient Referral STAT Type 2 diabetes mellitus with hyperglycemia, with long-term current use of insulin ([facility] V24, [facility] V28) 1 Occurrences starting 11/17/2024 until 11/17/2025 documented as of this encounter Visit Diagnoses Diagnosis Type 2 diabetes mellitus with hyperglycemia, with long-term current use of insulin ([facility] V24, [facility] V28)- Primary Mixed hyperlipidemia Vitamin D deficiency documented in this encounter Discontinued Medications Medication Sig Discontinue Reason Start Date End Da te rosuvastatin (CRESTOR) 5 mg tablet Take 1 tablet (5 mg total) by mouth 1 (one) time each day. Dose adjustment 11/15/2024 11/17/2024 dulaglutide (Trulicity) 0.75 mg/0.5 mL pen injector injection Inject 0.5 mL (0.75 mg total) under the skin 1 (one) time per week. Therapy completed 11/15/2024 11/17/2024 Lantus Solostar U-100 Insulin 100 unit/mL (3 mL) injection pen Inject 15 Units under the skin at bedtime. Reorder 11/15/2024 11/17/2024 documented as of this encounter Care Teams Conveyor Attendant Relationship Specialty Start Date End Date Prasanna Reynoso MD [address] [place] [address] PCP - General 03/25/22 documented as of this encounter
--- OUTSIDE RECORDS SUMMARY | 2024-11-18 19:33 | XMS_ITS | Encounter Summary ---
Author Organization [facility] Address [address] [place] [address] Care Team Providers Care Groundskeeper Name Role Phone Prasanna Reynoso MD Primary Care Provider Encounter Details Date Type Department Care Team ([facility] st Contact Info) Description 11/15/2024 Telephone Adult Medicine [facility] [address] [place], [place] [phone] Aby Angelo PA [address] [place], [place] Social History Tobacco Use Types Packs/Day Years [...] care for your loved ones. For example, manager child or elderly care for an older adult? [...] on file documented as of this encounter Progress Notes * Tatiana Jin - 11/16/2024 4:32 PM EDT Patient states he told the nurse it was near the [facility], near the [place], he will try getting the name. * Aleida Duque [place] - 11/16/2024 1:25 PM EDT Called [facility] eye care on [address], they stated that is not their patient. Called [facility] to confirm where eye exam was done, did not answer left voicemail. * CINDY Fortune - 11/15/2024 5:27 PM EDT Please request eye exam from [facility] eye care on [address] documented in this encounter Plan of Treatment Upcoming Encounters Date Type Department Care Team (Late st Contact Info) Description 12/06/2024 10:30 AM EDT Office Visit Adult Medicine [facility] [address] [place], [place] [phone] Prasanna Reynoso MD [address] [place], [place] documented as of this encounter Visit Diagnoses Not on filedocumented in this encounter Care Teams Groundskeeper Relationship Specialty Start Date End Date Prasanna Reynoso MD [address] [place], [place] PCP - General 03/25/22 documented as of this encounter
--- NOTE | 2024-11-18 19:49 | ED.GENADULT ---
HPI - General Adult General Chief complaint: Recheck/Abnormal Lab/Rx Stated complaint: increased BS sent by re: abn lab work Time Seen by Provider: 11/18/24 19:35 History of Present Illness HPI narrative: Patient is a 33-year-old male presented today with a long history of diabetes. Patient did not take his insulin has been drinking a lot of Coca Cola us. [place] weak. Increased thirst. Increased urination. No nausea no vomiting no chest pain. 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 Patient has insulin at home but did not use. His primary physician sent him in for further evaluation due to the extremely high sugar Related Data Home Medications ?Medication ?Instructions ?Recorded ?Confirmed metformin 500 mg tablet,extended 1,000 mg PO DAILY 05/23/23 05/23/23 release 24 hr Previous Rx's ?Medication ?Instructions ?Recorded blood-glucose meter #1 ea 03/19/21 alcohol swabs 1 pad topical QIDACHS #100 ea 05/25/23 blood pressure monitor (Blood #1 ea 05/25/23 Pressure Kit) blood sugar diagnostic (FreeStyle #100 ea 05/25/23 Lite Strips) blood-glucose meter (FreeStyle #1 ea 05/25/23 Lite Meter kit) glipizide 5 mg tablet 5 mg PO BIDWM #120 tabs 05/25/23 insulin glargine 100 unit/mL (3 10 unit (0.1 mL) subcut DAILY #15 05/25/23 mL) subcutaneous pen (Lantus mL Solostar U-100 Insulin) insulin lispro 100 unit/mL 0 sliding scale dose subcut 05/25/23 subcutaneous pen (Humalog KwikPen QIDACHS #15 mL (U-100) Insulin) lancets 28 gauge (FreeStyle #100 ea 05/25/23 Lancets) nystatin 100,000 unit/mL oral 500,000 unit (5 mL) PO QID #100 mL 05/25/23 suspension pen needle, diabetic 32 gauge x #100 ea 05/25/23/ alcohol swabs 1 pad topical QIDACHS #100 ea 11/18/24 blood sugar diagnostic (FreeStyle #100 ea 11/18/24 Lite Strips) blood-glucose meter (FreeStyle #1 ea 11/18/24 Lite Meter kit) lancets 28 gauge (FreeStyle #100 ea 11/18/24 Lancets) pen needle, diabetic 32 gauge x #100 ea 11/18/24 1/4 Allergies Allergy/AdvReac Type Severity Reaction Status Date / Time No Known Allergies Allergy Verified 11/18/24 16:41 Review of Systems Review of Systems: No fever no chills no chest pain no nausea no vomiting Yes all other systems are reviewed and are negative [facility] Past Medical History Attestation statement: The following information was validated with the patient. Medical History Diabetes type 2, uncontrolled Social History Social History Household Members: None Housing: Apartment Do you presently have visiting nurse or other home services: No Alcohol intake: current Alcohol intake frequency: does not drink Patient Tobacco Use Status: Never used Tobacco Smoked in Last 30 Days: No Use of substances other than those prescribed or required for medical reasons: No Advance Directives: No Advance Directives Information Provided: No service: No Physical Exam ED Exam Exam: Appearance: Alert. Oriented X3. No acute distress. Eyes: Pupils equal, round and reactive to light. ENT: Pharynx normal. Neck: Normal inspection. Neck supple. No lymph nodes noted. No crepitus CVS: Normal heart rate and rhythm. Pulses normal. Normal S1 and S2 Respiratory: No respiratory distress. Breath sounds normal. No Wheezing. No rales Abdomen: Soft and nontender. No rigidity. No distention. good BS x4 Skin: Skin warm and dry. Normal skin color. Normal skin turgor. Extremities: No lower extremity edema. Neurovascular intact to all extremities. No Lacerations. No Rash Neuro: Oriented X 3. No motor deficit. No sensory deficit. Moving all extermities. No slurred speech Vital Signs: Vital Signs - 24 hr 11/18/24 16:37 Temperature 97.2 F Pulse Rate 86 Respiratory Rate 18 Blood Pressure 163/96 H Pulse Oximetry 97 Oxygen Delivery Method Room Air BMI result Body Mass Index 32.3 Medications Administered Discontinued Medications Generic Name Dose Route Start Last Admin Trade Name Freq PRN Reason Stop Dose Admin Lactated Ringer's 1,000 mls @ 999 mls/hr 11/18/24 19:45 10/03/25 21:51 Lr IV 11/18/24 21:45 Infused .Q1H1M [facility] Infusion Sodium Chloride 1,000 mls @ 999 mls/hr 11/18/24 20:00 11/18/24 20:05 Ns IV 11/18/24 21:00 Not Given .Q1H1M [facility] Insulin Human Regular 15 unit 11/18/24 19:35 11/18/24 19:59 Insulin Regular, Human 100 Unit/Ml 10 Ml Vial IVPUSH 11/18/24 19:36 15 unit ONCE ONE Administration Medical Decision Making Medical Decision Making [facility] Narrative: Patient well-appearing no acute distress sugar was noted to be over 600 but luckily his electrolytes showed a normal anion gap normal bicarb there is no evidence for diabetic ketoacidosis. Will start patient on lots of fluids. A dose of insulin was already ordered. Currently in stable condition will monitor carefully. After 2 L of fluid constant monitoring sugar is down to approximately 200. Patient was given a meal will discharge patient home close follow-up advised advised patient not to drink lots of Coca-Cola. Rest take it easy. No simple sugar space out his meal and take his diabetes medicine including insulin. Patient states understanding Differential Diagnosis Differential Diagnoses: The differential diagnosis associated with the presentation includes Diabetes, diabetic ketoacidosis Lab Data [facility] Lab Attestation statement: I reviewed the patient's lab results. 11/18/24 17:12 11/18/24 17:12 Labs: Lab Results 11/18/24 11/18/24 11/18/24 Range/Units 17:12 17:25 20:12 WBC 9.1 (4.8-10.8) X10*3/uL RBC 4.98 (4.60-5.80) X10*6/uL Hgb 13.6 L (14.0-18.0) g/dl Hct 39.0 L (42.0-52.0) % MCV 78.3 L (80.0-98.0) fL MCH 27.3 (27.0-33.0) pg MCHC 34.9 (31.0-36.0) g/dl RDW 12.8 (11.0-16.0) % Plt Count 313 (160-400) X10*3/uL MPV 10.0 (9.4-12.4) fL Immature Gran % (Auto) 0.3 (0.0-0.4) % Neut % (Auto) 51.3 (45-73) % Lymph % (Auto) 35.8 (20-40) % Mcnairy % (Auto) 8.5 (2-11) % Eos % (Auto) 3.4 (0-4) % Baso % (Auto) 0.7 (0-2) % Lymph # (Auto) 3.3 (1.2-4.9) X10*3/uL Mcnairy # (Auto) 0.8 (0.1-1.2) X10*3/uL Eos # (Auto) 0.3 (0.0-0.4) X10*3/uL Baso # (Auto) 0.1 (0.0-0.2) X10*3/uL Abs Immat Gran (auto) 0.03 (0.00-0.03) X10*3/uL Absolute Neuts (auto) 4.7 (2.0-8.3) x10*3/uL Absolute Nucleated RBC 0.000 (0.0-0.012) X10*3/uL Nucleated RBC % (auto) 0.0 (0.0-0.2) /100WBC VBG pH 7.37 (7.32-7.43) VBG pCO2 48 mmHg VBG pO2 66 mmHg VBG HCO3 28 H (22-26) mmol/L VBG O2 Saturation 88.0 % VBG Base Excess 2.2 mmol/L Sodium 133 L (135-145) mmol/L Potassium 4.4 D (3.3-5.1) mmol/L Chloride 100 (96-108) mmol/L Carbon Dioxide 24 (22-29) mmol/L Anion Gap 13 (12-20) BUN 17 H (9-16) mg/dL Creatinine 1.33 (0.5-1.4) mg/dL Estim Creat Clear Calc 92.7 Estimated GFR > 60 POC Glucose 520 H* (60-115) mg/dL Random Glucose 692 H* (60-115) mg/dL Estimat Average Glucose TNP Hemoglobin A1c % > 14.0 H (<6.0) % Calcium 8.6 D (8.4-10.2) mg/dL Magnesium 1.9 (1.6-2.6) mg/dL Total Bilirubin 0.4 (0.0-1.0) mg/dL AST 16 (5-37) U/L ALT 9 (0-40) U/L Alkaline Phosphatase 120 H (39-117) U/L Total Protein 6.7 (6.5-8.0) g/dL Albumin 3.6 (3.5-5.0) g/dL Beta-Hydroxybutyrate 0.15 (0.02-0.27) mmol/L 11/18/24 Range/Units 21:54 WBC (4.8-10.8) X10*3/uL RBC (4.60-5.80) X10*6/uL Hgb (14.0-18.0) g/dl Hct (42.0-52.0) % MCV (80.0-98.0) fL MCH (27.0-33.0) pg MCHC (31.0-36.0) g/dl RDW (11.0-16.0) % Plt Count (160-400) X10*3/uL MPV (9.4-12.4) fL Immature Gran % (Auto) (0.0-0.4) % Neut % (Auto) (45-73) % Lymph % (Auto) (20-40) % Mcnairy % (Auto) (2-11) % Eos % (Auto) (0-4) % Baso % (Auto) (0-2) % Lymph # (Auto) (1.2-4.9) X10*3/uL Mcnairy # (Auto) (0.1-1.2) X10*3/uL Eos # (Auto) (0.0-0.4) X10*3/uL Baso # (Auto) (0.0-0.2) X10*3/uL Abs Immat Gran (auto) (0.00-0.03) X10*3/uL Absolute Neuts (auto) (2.0-8.3) x10*3/uL Absolute Nucleated RBC (0.0-0.012) X10*3/uL Nucleated RBC % (auto) (0.0-0.2) /100WBC VBG pH (7.32-7.43) VBG pCO2 mmHg VBG pO2 mmHg VBG HCO3 (22-26) mmol/L VBG O2 Saturation % VBG Base Excess mmol/L Sodium (135-145) mmol/L Potassium (3.3-5.1) mmol/L Chloride (96-108) mmol/L Carbon Dioxide (22-29) mmol/L Anion Gap (12-20) BUN (9-16) mg/dL Creatinine (0.5-1.4) mg/dL Estim Creat Clear Calc Estimated GFR POC Glucose 179 H (60-115) mg/dL Random Glucose (60-115) mg/dL Estimat Average Glucose Hemoglobin A1c % (<6.0) % Calcium (8.4-10.2) mg/dL Magnesium (1.6-2.6) mg/dL Total Bilirubin (0.0-1.0) mg/dL AST (5-37) U/L ALT (0-40) U/L Alkaline Phosphatase (39-117) U/L Total Protein (6.5-8.0) g/dL Albumin (3.5-5.0) g/dL Beta-Hydroxybutyrate (0.02-0.27) mmol/L External Record Review External record reviewed: Outpatient record Critical Care Time Critical Care Time Critical Care Time: Yes Total Critical Care Time: 40 Attestation: I have personally provided 40 minutes of critical care time exclusive of time spent on separately billable procedures. ?Time includes review of lab data, radiology results, discussion with consultants, and monitoring for potential decompensation. ?Interventions were performed as documented above Discharge Plan Discharge Clinical Impression: Acute hyperglycemia Patient Disposition: Home, Self-Care Instructions: Diabetic Hyperglycemia (ED), Diabetes and Nutrition (ED), Foot Care for People with Diabetes (DC) Prescriptions: New (DME) FreeStyle Lite Strips Strip Qty: 100 0RF Rx Instructions: Test four times a day or as directed. (DME) blood-glucose meter [FreeStyle Lite Meter] Kit Qty: 1 0RF Rx Instructions: As Directed alcohol swabs Pads, Medicated 1 pad TOPICAL QIDACHS Qty: 100 0RF Rx Instructions: Use four times a day or as directed. (DME) pen needle, diabetic 32 gauge x 1/4 needle Qty: 100 0RF Rx Instructions: Use four times a day or as directed. (DME) lancets [FreeStyle Lancets] 28 gauge misc Qty: 100 0RF Rx Instructions: Test four times a day or as directed. No Action (DME) blood-glucose meter Kit See Rx Instructions .Route Qty: 1 0RF Rx Instructions: As directed metformin 500 mg tablet extended release 24 hr 1,000 mg PO DAILY nystatin 100,000 unit/mL Suspension 500,000 unit PO QID Qty: 100 0RF Rx Instructions: nystatin oral switch and swallow 851000 units qid -end date 05/30/23 glipizide 5 mg Tablet 5 mg PO BIDWM Qty: 120 0RF (DME) FreeStyle Lite Strips Strip Qty: 100 0RF Rx Instructions: Test four times a day or as directed. (DME) blood-glucose meter [FreeStyle Lite Meter] Kit Qty: 1 0RF Rx Instructions: As Directed alcohol swabs Pads, Medicated 1 pad TOPICAL QIDACHS Qty: 100 0RF Rx Instructions: Use four times a day or as directed. insulin glargine [Lantus Solostar U-100 Insulin] 100 unit/mL (3 mL) insulin pen 10 unit SUBCUT DAILY Qty: 15 0RF (DME) pen needle, diabetic 32 gauge x 1/4 needle Qty: 100 0RF Rx Instructions: Use four times a day or as directed. (DME) lancets [FreeStyle Lancets] 28 gauge misc Qty: 100 0RF Rx Instructions: Test four times a day or as directed. (DME) blood pressure monitor [Blood Pressure Kit] Kit See Rx Instructions .Route Qty: 1 0RF Rx Instructions: As directed insulin lispro [Humalog KwikPen Insulin] 100 unit/mL insulin pen 0 sliding scale dose SUBCUT QIDACHS Qty: 15 0RF Rx Instructions: Blood Sugar: <150 - 0 units 151-200 - 2 units 201-250 - 4 units 251-300 - 6 units 301-350 - 8 units >350 - 10 units Referrals: Prasanna Reynoso MD [Primary Care Provider, Internal Medicine] - 11/28/24 Print Language: Maltese
[2024-11-18] MEDS: Lactated Ringers 1,000 ML 999 ML IV ×2 (20:03→20:44)
--- NOTE | 2024-11-18 20:05 | PC.NURSE ---
Dr Rankin states we can cx the normal saline and go with 2L of LR. pt medicated per APR.
--- NOTE | 2024-11-18 20:14 | MHC.EDTECH ---
@2009 Pamela given a cup and urinal, informed the provider is requesting a sample. Patient informed to use his call frances and inform this tech when completed and this tech will send the sample down to the lab.
[2024-11-18 20:15] LABS: Glucose, Whole Blood 520 mg/dL (60-115)
[2024-11-18 22:00] LABS: Glucose, Whole Blood 179 mg/dL (60-115)
[2024-11-18 22:07] LABS: Appearance Urine Clear; Glucose Urine UA >=1000 mg/dL (Negative); PH 7.5 (5.0-9.0); Specific Gravity - Urine 1.020 (1.005-1.025); UMIC TRIGGER UACC YES
[2024-11-18 22:42] VITALS: BP 151/96; PULSE 86; RESP 16; TEMP 36.8; O2SAT 98
== END 2024-11-18 22:44 | disposition home or self-care (01) ==
PROVIDERS: Registered Nurse Emergency; Emergency Provider Emergency Medicine Emergency Medical Services; PCP Internal Medicine
DX: E11.65 Type 2 diabetes mellitus with hyperglycemia (principal); R07.89 Other chest pain; R63.1 Polydipsia; R11.0 Nausea; Z79.84 Long term (current) use of oral hypoglycemic drugs; Z79.899 Other long term (current) drug therapy; Z79.4 Long term (current) use of insulin
CPT/HCPCS: 36415; 80053; 81001; 82010; 82803; 82947; 83036; 83735; 85025; 96361; 96374; 99284; J7120